=== PATIENT | male | born 1955 | race African-American/Black ===

== ENCOUNTER 2018-10-31 20:50 | Emergency (ER) | payer SELFPAY ==
[2018-10-31] MEDS ORDERED: HYDROCODONE/APAP 10/325 TAB ONE (23:04)
[2018-10-31] MEDS ORDERED: KETOROLAC 30 MG/ML INJ ONE (23:05)
--- NOTE | 2018-11-01 01:29 | ER ---
Nurse's Notes [facility] Name: Malcom Delgado Age: 63 yrs Sex: Male : 1955 Arrival Date: 10/31/2018 Time: 20:57 Bed 7 Private MD: Jerardo Shelby Diagnosis: Strain of other muscles and tendons at lower leg level-hamstring, tear Presentation: 10/31 21:13 Presenting complaint: Patient states: that 2 days ago he was playing with his dog and fc all of a sudden heard a pop. Then started to have pain to back of left thigh. Transition of care: patient was not received from another setting of care. Onset of symptoms was October 29, 2018. Risk Assessment: Do you want to hurt yourself or someone else? Patient reports no desire to harm self or others. Initial Sepsis Screen: Does the patient meet any 2 criteria? No. Patient's initial sepsis screen is negative. Does the patient have a suspected source of infection? No. Patient's initial sepsis screen is negative. Care prior to arrival: Medication(s) given: Tylenol, 650 mg, last at 1600. 21:13 Method Of Arrival: Ambulatory 21:13 Acuity: AKUA 3 Triage Assessment: 21:21 General: Appears uncomfortable, slender, Behavior is calm, cooperative, appropriate for age. Pain: Complains of pain in left hamstring Pain currently is 9 out of 10 on a pain scale. Quality of pain is described as aching, sharp, throbbing, Pain began 2-3 days ago. Is continuous, Aggravated by increased activity, repositioning, weight bearing. EENT: No deficits noted. Neuro: Level of Consciousness is awake, alert, obeys commands, Oriented to person, place, time, situation. Cardiovascular: No deficits noted. Respiratory: No deficits noted. GI: No deficits noted. : No deficits noted. Derm: Skin is pink, warm \T\ dry. Musculoskeletal: Circulation, motion, and sensation intact. Capillary refill < 3 seconds, Range of motion: limited in left hip Reports pain in left hamstring. Historical: - Allergies: 21:17 Coreg; fc - Home Meds: 21:17 amlodipine oral 1 tab twice a day [Active]; fc - PMHx: 21:17 Hypertension; fc - PSHx: 21:17 back surg; fc - Immunization history:: Last tetanus immunization: up to date Flu vaccine is not up to date. - Social history:: Smoking status: Patient uses tobacco products, denies chronic smoking, but will smoke occasionally, Patient/guardian denies using alcohol. - Ebola Screening: : Patient negative for fever greater than or equal to 101.5 degrees Fahrenheit, and additional compatible Ebola Virus Disease symptoms Patient denies exposure to infectious person Patient denies travel to an Ebola-affected area in the 21 days before illness onset. - Family history:: not pertinent. Screenin:33 Abuse screen: Denies threats or abuse. Nutritional screening: No deficits noted. tl2 Tuberculosis screening: No symptoms or risk factors identified. Fall Risk None identified. Assessment: 21:33 General: Appears in no apparent distress. uncomfortable, Behavior is calm, cooperative, tl2 appropriate for age. Pain: Complains of pain in left gluteal fold Pain does not radiate. Neuro: Level of Consciousness is awake, alert, obeys commands, Oriented to person, place, time, situation. Cardiovascular: Denies chest pain. Respiratory: Airway is patent Respiratory effort is even, unlabored, Respiratory pattern is regular, symmetrical. GI: No signs and/or symptoms were reported involving the gastrointestinal system. : No signs and/or symptoms were reported regarding the genitourinary system. Derm: Skin is pink, warm \T\ dry. Musculoskeletal: Circulation, motion, and sensation intact. Range of motion: intact in all extremities, Swelling absent unable to bear weight on left leg. 22:15 Reassessment: Patient appears in no apparent distress at this time. awaiting MD tl2 assessment. 11/01 00:56 Reassessment: Patient appears in no apparent distress at this time. Patient and/or tl2 family updated on plan of care and expected duration. Pain level reassessed. Patient is alert, oriented x 3, equal unlabored respirations, skin warm/dry/pink. Patient states feeling better. Patient states symptoms have improved. 01:38 Reassessment: Patient appears in no apparent distress at this time. Patient and/or tl2 family updated on plan of care and expected duration. Pain level reassessed. Patient is alert, oriented x 3, equal unlabored respirations, skin warm/dry/pink. Pt and family verbalized understanding of discharge instructions, need for follow up and prescription usage. Vital Signs: 10/31 21:17 BP 239 / 91 RA Sitting (auto/reg); Pulse 88; Resp 18; Temp 99.1(O); Pulse Ox 100% on fc R/A; Weight 81.65 kg (R); Height 5 ft. 9 in. (175.26 cm); Pain 9/10; 21:17 BP 208 / 97 LA Sitting (auto/reg); Pulse 86; fc 22:15 BP 208 / 97; Pulse 87; Resp 18; Pulse Ox 97% on R/A; tl2 23:02 BP 203 / 94; Pulse 83; Resp 18; Pulse Ox 98% on R/A; tl2 11/01 00:56 BP 207 / 90; Pulse 70; Resp 18; Pulse Ox 97% on R/A; Pain 4/10; tl2 01:38 BP 199 / 98; Pulse 63; Resp 18; Pulse Ox 98% on R/A; tl2 10/31 21:17 Body Mass Index 26.58 (81.65 kg, 175.26 cm) ED Course: 10/31 20:57 Patient arrived in ED. mr 20:58 Jerardo Shelby MD is Private Physician. mr 21:15 Triage completed. fc 21:18 Arm band placed on Patient placed in an exam room, on a stretcher. fc 21:33 Cecille Reyes, RN is Primary Nurse. tl2 21:33 Patient has correct armband on for positive identification. Placed in gown. Bed in low tl2 position. Call light in reach. Side rails up X 1. 22:08 Ambrocio Langley MD is Attending Physician. yohana 23:25 Patient moved to radiology via wheelchair. az 23:25 X-ray completed. Patient tolerated procedure well. az 23:25 Patient moved back from radiology. az 23:27 Femur Left XRAY In Process Unspecified. EDMS 23:27 Pelvis XRAY In Process Unspecified. EDMS 11/01 01:28 Jerardo Shelby MD is Referral Physician. yohana 01:28 Brett Buck MD is Referral Physician. yohana 01:38 No provider procedures requiring assistance completed. Patient did not have IV access tl2 during this emergency room visit. Administered Medications: 10/31 23:00 Drug: TORadol 60 mg Route: IM; Site: left gluteus; tl2 11/01 00:00 Follow up: Response: No adverse reaction; Pain is decreased tl2 10/31 23:00 Drug: [place] 10 mg-325 mg 1 tabs Route: PO; tl2 11/01 00:00 Follow up: Response: No adverse reaction; Pain is decreased tl2 Outcome: 01:28 Discharge ordered by MD. muller 01:38 Discharged to home via wheelchair, with crutches, with family. tl2 01:38 Condition: stable 01:38 Discharge instructions given to patient, Instructed on discharge instructions, follow up and referral plans. medication usage, Demonstrated understanding of instructions, follow-up care, medications, Prescriptions given X 2. 01:39 Patient left the ED. tl2 09:35 Instructed on attempted to follow up with pt about need for repeat outpatient CT of iw leg, pt did not answer Signatures: Dispatcher [employer] EDAmbrocio Redmond MD MD cha Rivera, Mary mr Clementina Galarza, PREM RN fc Sandi Mckinney RN RN iw Knox, Taylor, RN RN tl2 Poppy Duncan Corrections: (The following items were deleted from the chart) 10/31 21:20 21:13 Acuity: AKUA 4 fc fc
--- NOTE | 2018-11-01 01:29 | EDPHYS ---
Physician Documentation [facility] Name: Malcom Delgado Age: 63 yrs Sex: Male : 1955 Arrival Date: 10/31/2018 Time: 20:57 Bed 7 Private MD: Jerardo Shelby ED Physician Ambrocio Langley HPI: 10/31 22:48 This 63 yrs old Black Male presents to ER via Ambulatory with complaints of Leg Pain. yohana 22:48 The patient presents with decreased range of motion, pain, that is acute. The yohana complaints affect the left hamstring. Context: resulted from playing sports, running. Onset: The symptoms/episode began/occurred 2 day(s) ago. Modifying factors: The symptoms are alleviated by elevating leg, remaining still, the symptoms are aggravated by movement. Associated signs and symptoms: The patient has no apparent associated signs or symptoms. Treatment prior to arrival includes: no previous treatment. The patient has not experienced similar symptoms in the past. Historical: - Allergies: 21:17 Coreg; fc - Home Meds: 21:17 amlodipine oral 1 tab twice a day [Active]; fc - PMHx: 21:17 Hypertension; fc - PSHx: 21:17 back surg; fc - Immunization history:: Last tetanus immunization: up to date Flu vaccine is not up to date. - Social history:: Smoking status: Patient uses tobacco products, denies chronic smoking, but will smoke occasionally, Patient/guardian denies using alcohol. - Ebola Screening: : Patient negative for fever greater than or equal to 101.5 degrees Fahrenheit, and additional compatible Ebola Virus Disease symptoms Patient denies exposure to infectious person Patient denies travel to an Ebola-affected area in the 21 days before illness onset. - Family history:: not pertinent. ROS: 22:48 Constitutional: Negative for fever, chills, and weight loss, Eyes: Negative for injury, yohana pain, redness, and discharge, ENT: Negative for injury, pain, and discharge, Neck: Negative for injury, pain, and swelling, Cardiovascular: Negative for chest pain, palpitations, and edema, Respiratory: Negative for shortness of breath, cough, wheezing, and pleuritic chest pain, Abdomen/GI: Negative for abdominal pain, nausea, vomiting, diarrhea, and constipation, Back: Negative for injury and pain, : Negative for injury, bleeding, discharge, and swelling, Skin: Negative for injury, rash, and discoloration, Neuro: Negative for headache, weakness, numbness, tingling, and seizure, Psych: Negative for depression, anxiety, suicide ideation, homicidal ideation, and hallucinations, Allergy/Immunology: Negative for hives, rash, and allergies, Endocrine: Negative for neck swelling, polydipsia, polyuria, polyphagia, and marked weight changes, Hematologic/Lymphatic: Negative for swollen nodes, abnormal bleeding, and unusual bruising. 22:48 MS/extremity: Positive for decreased range of motion, pain, of the left hamstring. Exam: 22:48 Constitutional: This is a well developed, well nourished patient who is awake, alert, yohana and in no acute distress. Head/Face: Normocephalic, atraumatic. Eyes: Pupils equal round and reactive to light, extra-ocular motions intact. Lids and lashes normal. Conjunctiva and sclera are non-icteric and not injected. Cornea within normal limits. Periorbital areas with no swelling, redness, or edema. ENT: Nares patent. No nasal discharge, no septal abnormalities noted. Tympanic membranes are normal and external auditory canals are clear. Oropharynx with no redness, swelling, or masses, exudates, or evidence of obstruction, uvula midline. Mucous membranes moist. Neck: Trachea midline, no thyromegaly or masses palpated, and no cervical lymphadenopathy. Supple, full range of motion without nuchal rigidity, or vertebral point tenderness. No Meningismus. Chest/axilla: Normal chest wall appearance and motion. Nontender with no deformity. No lesions are appreciated. Cardiovascular: Regular rate and rhythm with a normal S1 and S2. No gallops, murmurs, or rubs. Normal PMI, no JVD. No pulse deficits. Respiratory: Lungs have equal breath sounds bilaterally, clear to auscultation and percussion. No rales, rhonchi or wheezes noted. No increased work of breathing, no retractions or nasal flaring. Abdomen/GI: Soft, non-tender, with normal bowel sounds. No distension or tympany. No guarding or rebound. No evidence of tenderness throughout. Back: No spinal tenderness. No costovertebral tenderness. Full range of motion. Male : Normal genitalia with no discharge or lesions. Skin: Warm, dry with normal turgor. Normal color with no rashes, no lesions, and no evidence of cellulitis. Neuro: Awake and alert, GCS 15, oriented to person, place, time, and situation. Cranial nerves II-XII grossly intact. Motor strength 5/5 in all extremities. Sensory grossly intact. Cerebellar exam normal. Normal gait. Psych: Awake, alert, with orientation to person, place and time. Behavior, mood, and affect are within normal limits. 22:48 Musculoskeletal/extremity: Extremities: noted in the left hamstring: decreased ROM, pain. Vital Signs: 21:17 BP 239 / 91 RA Sitting (auto/reg); Pulse 88; Resp 18; Temp 99.1(O); Pulse Ox 100% on fc R/A; Weight 81.65 kg (R); Height 5 ft. 9 in. (175.26 cm); Pain 9/10; 21:17 BP 208 / 97 LA Sitting (auto/reg); Pulse 86; fc 22:15 BP 208 / 97; Pulse 87; Resp 18; Pulse Ox 97% on R/A; tl2 23:02 BP 203 / 94; Pulse 83; Resp 18; Pulse Ox 98% on R/A; tl2 11/01 00:56 BP 207 / 90; Pulse 70; Resp 18; Pulse Ox 97% on R/A; Pain 4/10; tl2 01:38 BP 199 / 98; Pulse 63; Resp 18; Pulse Ox 98% on R/A; tl2 10/31 21:17 Body Mass Index 26.58 (81.65 kg, 175.26 cm) MDM: 10/31 22:08 Patient medically screened. [facility] 22:51 Data reviewed: vital signs, nurses notes, radiologic studies, plain films. [facility] 10/31 22:48 Order name: Femur Left XRAY [facility] 10/31 22:48 Order name: Pelvis XRAY [facility] 10/31 22:48 Order name: Crutch Training; Complete Time: 01:37 [facility] 10/31 22:48 Order name: Stevan Wrap; Complete Time: 01:37 [facility] Administered Medications: 23:00 Drug: TORadol 60 mg Route: IM; Site: left gluteus; tl2 11/01 00:00 Follow up: Response: No adverse reaction; Pain is decreased [facility] 10/31 23:00 Drug: [place] 10 mg-325 mg 1 tabs Route: PO; tl2 11/01 00:00 Follow up: Response: No adverse reaction; Pain is decreased tl2 Disposition: 11/01/18 01:28 Discharged to Home. Impression: Strain of other muscles and tendons at lower leg level - hamstring, tear. - Condition is Stable. - Discharge Instructions: Muscle Strain, Muscle Pain, Adult, Muscle Pain, Pediatric, Muscle Strain, [id number]. - Prescriptions for Tylenol- Codeine #3 300-30 mg Oral Tablet - take 2 tablet by ORAL route every 6 hours As needed; 30 tablet. Motrin IB 200 mg Oral Tablet - take 2 tablet by ORAL route every 6 hours As needed as needed with food; 26 tablet. - Medication Reconciliation Form, Thank You Letter, Antibiotic Education, Prescription Opioid Use form. - Follow up: Jerardo Shelby; When: 2 - 3 days; Reason: Recheck today's complaints, Continuance of care, Re-evaluation by your physician. Follow up: Dr. Brett Buck; When: 2 - 3 days; Reason: Recheck today's complaints, Re-evaluation by your physician. - Problem is new. - Symptoms have improved. Signatures: Dispatcher [employer] EDMS Ambrocio Langley MD MD cha Chretien, Felicia, RN RN Cecille Reyes RN RN tl2 Corrections: (The following items were deleted from the chart) 01:39 01:28 11/01/2018 01:28 Discharged to Home. Impression: Strain of other muscles and tl2 tendons at lower leg level - hamstring, tear. Condition is Stable. Discharge Instructions: Muscle Strain, Muscle Pain, Adult, Muscle Pain, Pediatric, Muscle Strain, [id number]. Prescriptions for Tylenol-Codeine #3 300-30 mg Oral Tablet - take 2 tablet by ORAL route every 6 hours As needed; 30 tablet, Motrin IB 200 mg Oral Tablet - take 2 tablet by ORAL route every 6 hours As needed as needed with food; 26 tablet. and Forms are Medication Reconciliation Form, Thank You Letter, Antibiotic Education, Prescription Opioid Use. Follow up: Jerardo Shelby; When: 2 - 3 days; Reason: Recheck today's complaints, Continuance of care, Re-evaluation by your physician. Follow up: Dr. Brett Buck; When: 2 - 3 days; Reason: Recheck today's complaints, Re-evaluation by your physician. Problem is new. Symptoms have improved. yohana
--- NOTE | 2018-11-01 09:32 | RAD REPORT ---
EXAM DESCRIPTION: RAD - Femur Left - 10/31/2018 11:28 pm CLINICAL HISTORY: Leg pain status post injury. COMPARISON: None. FINDINGS: No fracture or dislocation is seen. A and 36 mm well-circumscribed lucent lesion is presen t within the left femoral neck with a sclerotic border. It has enlarged when compared to a May 2017 exam in which it measured 30 mm. No fracture or dislocation is seen. IMPRESSION: 1. No fracture is seen. 2. A 36 mm well-circumscribed lucent lesion within the left femoral neck with a sclerotic border. It has a benign appearance. However, since it has enlarged since the prior exam it is recommended that t he patient have a CT scan for further evaluation. The examination was discussed with Dr. Hayes was in the emergency room at approximately 9:20 a.m. on November 01, 2018.
--- NOTE | 2018-11-01 09:48 | RAD REPORT ---
EXAM DESCRIPTION: RAD - Pelvis - 10/31/2018 11:27 pm CLINICAL HISTORY: Leg pain status post injury. COMPARISON: None. FINDINGS: No fracture or dislocation is seen. A and 36 mm well-circumscribed lucent lesion is presen t within the left femoral neck with a sclerotic border. It has enlarged when compared to a May 2017 exam in which it measured 30 mm. No fracture or dislocation is seen. IMPRESSION: 1. No fracture is seen. 2. A 36 mm well-circumscribed lucent lesion within the left femoral neck with a sclerotic border. It has a benign appearance. However, since it has enlarged since the prior exam it is recommended that t he patient have a CT scan for further evaluation. The examination was discussed with Dr. Hayes was in the emergency room at approximately 9:20 a.m. on November 01, 2018.
== END 2018-11-01 01:39 | disposition home or self-care (01) ==
LOC: ER 20:50
DX: S86.812A Strain of other muscle(s) and tendon(s) at lower leg level, left leg, initial encounter (principal); Y93.79 Activity, other specified sports and athletics; Y93.02 Activity, running; Y92.9 Unspecified place or not applicable; I10 Essential (primary) hypertension; F17.210 Nicotine dependence, cigarettes, uncomplicated
CPT/HCPCS: 72170; 96372; 99283

== ENCOUNTER 2019-09-30 18:41 | Emergency (ER) | payer SELFPAY ==
[2019-09-30 19:58] LABS: Basophils % 1.6 % (0-1.3); Hematocrit 38.1 % (39.6-49.0); Lymphocytes % 36.3 % (15.3-44.8); MPV 8.3 fL (7.6-11.3); RBC Red Blood Cell Count 4.24 M/uL (4.33-5.43)
[2019-09-30 20:08] LABS: Urine RBC <5 /HPF (NONE SEEN)
[2019-09-30 20:09] LABS: Urine Amorphous Sediment 2+ /HPF (NONE SEEN); Urine Bacteria >50 /HPF (NONE SEEN); Urine Culture Reflex Order REFLEXED
[2019-09-30] MEDS ORDERED: MORPHINE 4 MG/ML SYR ONE ×2 (20:09→20:56)
[2019-09-30] MEDS ORDERED: ONDANSETRON 4 MG/2 ML VIAL ONE (20:09)
[2019-09-30 20:19] LABS: Albumin 3.5 g/dL (3.4-5.0); Bilirubin Direct 0.1 mg/dL (0-0.2); Bilirubin Total 0.3 mg/dL (0.2-1.0); Potassium 3.1 mmol/L (3.5-5.1); Protein, Total 6.7 g/dL (6.4-8.2)
[2019-09-30] MEDS ORDERED: CEFTRIAXONE/SWI 1gm 1 GM/10 ML SYR ONE (20:24)
[2019-09-30] MEDS ORDERED: NA CHLORIDE 0.9% 1,000 ML ONE (20:24)
[2019-09-30 20:52] LABS: Blood Morphology Comment NOT SEEN (NOT SEEN); Platelet Estimate ADEQ
--- NOTE | 2019-09-30 21:01 | RAD REPORT ---
EXAM DESCRIPTION: CT - Abdomen Pelvis W Contrast - 09/30/2019 8:40 pm CLINICAL HISTORY: Abdominal pain COMPARISON: 2017 TECHNIQUE: Computed axial tomography of the abdomen pelvis was obtained. 100 cc Isovue-300 was admin istered intravenously. Oral contrast was not requested which limits evaluation of bowel. All CT scans are performed using dose optimization technique as appropriate and may include automated exposure control or mA/KV adjustment according to patient size. FINDINGS: The liver, spleen, pancreas, adrenal and right kidney appear unremarkable. Small left tennille l cyst. There is no evidence of diverticulitis. Prostate gland is mildly enlarged. Mild anterior subluxation L4 on L5 with spondylosis and spondylolysis L4 IMPRESSION: No acute abnormality is displayed.
--- NOTE | 2019-09-30 23:04 | ER ---
Nurse's Notes [facility] Name: Malcom Delgado Age: 64 yrs Sex: Male : 1955 Arrival Date: 09/30/2019 Time: 18:43 Bed 4 Private MD: Jerardo Shelby Diagnosis: Acute cystitis Presentation: 09/30 18:45 Presenting complaint: Patient states: blood in urine, abd pain, vomiting, began last la1 week. Transition of care: patient was not received from another setting of care. Onset of symptoms was September 30, 2019. Risk Assessment: Do you want to hurt yourself or someone else? Patient reports no desire to harm self or others. Initial Sepsis Screen: Does the patient meet any 2 criteria? No. Patient's initial sepsis screen is negative. Does the patient have a suspected source of infection? No. Patient's initial sepsis screen is negative. Care prior to arrival: None. 18:45 Method Of Arrival: Ambulatory la1 18:45 Acuity: AKUA 2 la1 Historical: - Allergies: 18:45 Coreg; la1 - PMHx: 18:45 Hypertension; la1 - Immunization history:: Adult Immunizations up to date. - Social history:: Smoking status: Patient uses tobacco products, denies chronic smoking, but will smoke occasionally. - Ebola Screening: : No symptoms or risks identified at this time. Screenin:16 Abuse screen: Denies threats or abuse. Denies injuries from another. Nutritional rr5 screening: No deficits noted. Tuberculosis screening: No symptoms or risk factors identified. Fall Risk IV access (20 points). Total Uribe Fall Scale indicates No Risk (0-24 pts). Assessment: 20:00 General: Appears in no apparent distress. uncomfortable, Behavior is calm, cooperative, rr5 appropriate for age. 20:00 Pain: Complains of pain in right upper quadrant Pain does not radiate. Pain currently rr5 is 9 out of 10 on a pain scale. Quality of pain is described as aching, Pain began gradually, Is intermittent. Neuro: Level of Consciousness is awake, alert, obeys commands, Oriented to person, place, time, situation, Appropriate for age. Cardiovascular: Capillary refill < 3 seconds Patient's skin is warm and dry. Respiratory: Airway is patent Respiratory effort is even, unlabored, Respiratory pattern is regular, symmetrical. GI: Abdomen is flat, Abdomen is tender to palpation in right upper quadrant Guarding noted Reports upper abdominal pain, nausea, vomiting. : Reports blood in urine. EENT: No signs and/or symptoms were reported regarding the EENT system. Derm: Skin is intact, Skin temperature is warm. Musculoskeletal: Circulation, motion, and sensation intact. Capillary refill < 3 seconds. 20:55 Reassessment: Patient appears in no apparent distress at this time. patient complaint rr5 of abdominal pain,ED provider aware with order made and carried out. Patient states symptoms have not improved. 22:20 Reassessment: Patient appears in no apparent distress at this time. Patient is alert, rr5 oriented x 3, equal unlabored respirations, skin warm/dry/pink. awaiting for result. Patient states symptoms have improved. Pain: Pain currently is 5 out of 10 on a pain scale. 23:15 Reassessment: Patient appears in no apparent distress at this time. Patient is alert, rr5 oriented x 3, equal unlabored respirations, skin warm/dry/pink. discharge instruction given and explained without complaints made, verbalized understanding. Patient states feeling better. Patient states symptoms have improved. Vital Signs: 18:45 BP 230 / 97; Pulse 93; Resp 16; Temp 98.1; Pulse Ox 98% on R/A; Weight 72.57 kg; Height la1 5 ft. 9 in. (175.26 cm); 20:10 BP 176 / 101; Pulse 95; Resp 17; Pulse Ox 99% ; Pain 9/10; rr5 21:00 BP 201 / 86; Pulse 90; Resp 19; Pulse Ox 98% on R/A; Pain 9/10; rr5 22:00 BP 185 / 85; Pulse 67; Resp 16; Pulse Ox 99% ; Pain 5/10; rr5 23:00 BP 171 / 80; Pulse 75; Resp 17; Temp 98; Pulse Ox 99% ; rr5 18:45 Body Mass Index 23.63 (72.57 kg, 175.26 cm) la1 ED Course: 18:43 Patient arrived in ED. mr 18:43 Jerardo Shelby MD is Private Physician. mr 18:45 Triage completed. la1 18:45 Arm band placed on left wrist. la1 18:58 [facility]. jr8 18:58 Charlie Lugo MD is Attending Physician. jr8 19:45 Inserted saline lock: 20 gauge in right forearm, using aseptic technique. Blood rr5 collected. 19:50 Patient has correct armband on for positive identification. Placed in gown. Bed in low rr5 position. Call light in reach. Pulse ox on. NIBP on. 20:03 Bud Brown, RN is Primary Nurse. rr5 20:40 CT completed. Patient tolerated procedure well. Patient moved back from CT. mw3 20:40 CT Abd/Pelvis - IV Contrast Only In Process Unspecified. EDMS 20:[address] back [address]. vm2 23:03 Jerardo Shelby MD is Referral Physician. jr8 23:20 No provider procedures requiring assistance completed. IV discontinued, intact, rr5 bleeding controlled, No redness/swelling at site. Pressure dressing applied. Administered Medications: 20:12 Drug: Zofran 4 mg Route: IVP; Site: right forearm; rr5 21:15 Follow up: Response: No adverse reaction rr5 20:14 Drug: morphine 4 mg {Note: rass 0.} Route: IVP; Site: right forearm; rr5 21:00 Follow up: Response: No adverse reaction; Pain is unchanged, physician notified; RASS: rr5 Alert and Calm (0) 20:27 Drug: Rocephin 1 grams Route: IV; Rate: calculated rate; Site: right forearm; rr5 20:27 Drug: NS 0.9% 1000 ml Route: IV; Rate: 1000 ml; Site: right forearm; rr5 22:00 Follow up: Response: No adverse reaction; IV Status: Completed infusion; IV Intake: rr5 1000ml 21:00 Drug: morphine 4 mg {Note: rass 0.} Route: IVP; Site: right forearm; rr5 22:00 Follow up: Response: No adverse reaction; Pain is decreased; RASS: Alert and Calm (0) rr5 Intake: 22:00 IV: 1000ml; Total: 1000ml. rr5 Outcome: 23:03 Discharge ordered by . jr8 23:20 Discharged to home ambulatory, with family. rr5 23:20 Condition: stable 23:20 Discharge instructions given to patient, Instructed on discharge instructions, follow up and referral plans. medication usage, Demonstrated understanding of instructions, follow-up care, medications, Prescriptions given X 1. 23:21 Patient left the ED. rr5 Signatures: Dispatcher [employer] ED Agnes Malloy mr LoreneManinder martins PA PA jr8 Jose Starr RN RN la1 Mala Cummings 2 Zehra Rankin 3 Bud Brown RN RN rr5 Corrections: (The following items were deleted from the chart) 18:46 18:45 Acuity: AKUA 3 la1 la1 20:15 19:11 morphine 4 mg IVP in right forearm rr5 rr5
--- NOTE | 2019-09-30 23:04 | EDPHYS ---
Physician Documentation [facility] Name: Malcom Delgado Age: 64 yrs Sex: Male : 1955 Arrival Date: 09/30/2019 Time: 18:43 Bed 4 Private MD: Jerardo Shelby ED Physician Charlie Lugo HPI: 09/30 19:43 This 64 yrs old Black Male presents to ER via Ambulatory with complaints of Urinary jr8 Problem, Vomiting. 19:43 The patient presents to the emergency department with nausea, vomiting, diarrhea. jr8 Onset: The symptoms/episode began/occurred gradually, 1 week(s) ago. Possible causes: unknown. The symptoms are aggravated by nothing. The symptoms are alleviated by nothing. Associated signs and symptoms: Pertinent positives: hematuria. Severity of symptoms: At their worst the symptoms were moderate in the emergency department the symptoms are unchanged. The patient has not experienced similar symptoms in the past. The patient has not recently seen a physician. Historical: - Allergies: 18:45 Coreg; la1 - PMHx: 18:45 Hypertension; la1 - Immunization history:: Adult Immunizations up to date. - Social history:: Smoking status: Patient uses tobacco products, denies chronic smoking, but will smoke occasionally. - Ebola Screening: : No symptoms or risks identified at this time. ROS: 19:43 Eyes: Negative for injury, pain, redness, and discharge, ENT: Negative for injury, jr8 pain, and discharge, Neck: Negative for injury, pain, and swelling, Cardiovascular: Negative for chest pain, palpitations, and edema, Respiratory: Negative for shortness of breath, cough, wheezing, and pleuritic chest pain, Back: Negative for injury and pain, MS/Extremity: Negative for injury and deformity, Skin: Negative for injury, rash, and discoloration, Neuro: Negative for headache, weakness, numbness, tingling, and seizure. 19:43 Abdomen/GI: Positive for abdominal pain, nausea, vomiting, and diarrhea, Negative for abdominal distension, anorexia, dysphagia, hematemesis, black/tarry stool, rectal pain, rectal bleeding, bowel incontinence, flatulence. 19:43 : Positive for hematuria. Exam: 19:43 Eyes: Pupils equal round and reactive to light, extra-ocular motions intact. Lids and jr8 lashes normal. Conjunctiva and sclera are non-icteric and not injected. Cornea within normal limits. Periorbital areas with no swelling, redness, or edema. ENT: Nares patent. No nasal discharge, no septal abnormalities noted. Tympanic membranes are normal and external auditory canals are clear. Oropharynx with no redness, swelling, or masses, exudates, or evidence of obstruction, uvula midline. Mucous membranes moist. Neck: Trachea midline, no thyromegaly or masses palpated, and no cervical lymphadenopathy. Supple, full range of motion without nuchal rigidity, or vertebral point tenderness. No Meningismus. Cardiovascular: Regular rate and rhythm with a normal S1 and S2. No gallops, murmurs, or rubs. Normal PMI, no JVD. No pulse deficits. Respiratory: Lungs have equal breath sounds bilaterally, clear to auscultation and percussion. No rales, rhonchi or wheezes noted. No increased work of breathing, no retractions or nasal flaring. Back: No spinal tenderness. No costovertebral tenderness. Full range of motion. Skin: Warm, dry with normal turgor. Normal color with no rashes, no lesions, and no evidence of cellulitis. MS/ Extremity: Pulses equal, no cyanosis. Neurovascular intact. Full, normal range of motion. Neuro: Awake and alert, GCS 15, oriented to person, place, time, and situation. Cranial nerves II-XII grossly intact. Motor strength 5/5 in all extremities. Sensory grossly intact. Cerebellar exam normal. Normal gait. 19:43 Abdomen/GI: Inspection: abdomen appears normal, Bowel sounds: active, all quadrants, Palpation: soft, in all quadrants, mild abdominal tenderness, in the right upper quadrant and right lower quadrant, mass, is not appreciated, rebound tenderness, is not appreciated, voluntary guarding, is not appreciated, involuntary guarding, is not appreciated, no appreciated organomegaly, Indicators: McBurney's point is not tender, Vega's sign is negative, Rovsing's sign is negative, Liver: tenderness, is not appreciated. Vital Signs: 18:45 BP 230 / 97; Pulse 93; Resp 16; Temp 98.1; Pulse Ox 98% on R/A; Weight 72.57 kg; Height la1 5 ft. 9 in. (175.26 cm); 20:10 BP 176 / 101; Pulse 95; Resp 17; Pulse Ox 99% ; Pain 9/10; rr5 21:00 BP 201 / 86; Pulse 90; Resp 19; Pulse Ox 98% on R/A; Pain 9/10; rr5 22:00 BP 185 / 85; Pulse 67; Resp 16; Pulse Ox 99% ; Pain 5/10; rr5 23:00 BP 171 / 80; Pulse 75; Resp 17; Temp 98; Pulse Ox 99% ; rr5 18:45 Body Mass Index 23.63 (72.57 kg, 175.26 cm) la1 MDM: 19:16 Patient medically screened. [facility] 23:02 Data reviewed: vital signs, nurses notes, lab test result(s), radiologic studies, CT jr8 scan. Data interpreted: Pulse oximetry: on room air is 99 %. Interpretation: normal. Counseling: I had a detailed discussion with the patient and/or guardian regarding: the historical points, exam findings, and any diagnostic results supporting the discharge/admit diagnosis, lab results, radiology results, the need for outpatient follow up, a family practitioner, to return to the emergency department if symptoms worsen or persist or if there are any questions or concerns that arise at home. Response to treatment: the patient's symptoms have markedly improved after treatment. 09/30 19:16 Order name: Basic Metabolic Panel; Complete Time: 20:20 [facility] 09/30 19:16 Order name: CBC with Diff; Complete Time: 20:56 [facility] 09/30 19:16 Order name: Creatinine for Radiology; Complete Time: 20:36 [facility] 09/30 19:16 Order name: Hepatic Function; Complete Time: 20:20 [facility] 09/30 19:16 Order name: Lipase; Complete Time: 20:20 [facility] 09/30 19:16 Order name: Urine Microscopic Only; Complete Time: 20:13 [facility] 09/30 20:12 Order name: Urine Culture [facility] 09/30 20:14 Order name: CT Abd/Pelvis - IV Contrast Only [facility] 09/30 20:22 Order name: Manual Differential; Complete Time: 20:56 [facility] 09/30 19:16 Order name: IV Saline Lock; Complete Time: 19:55 [facility] 09/30 19:16 Order name: Labs collected and sent; Complete Time: 19:55 [facility] 09/30 19:16 Order name: Urine Dipstick-Ancillary (obtain specimen); Complete Time: 19:55 jr8 Administered Medications: 20:12 Drug: Zofran 4 mg Route: IVP; Site: right forearm; rr5 21:15 Follow up: Response: No adverse reaction rr5 20:14 Drug: morphine 4 mg {Note: rass 0.} Route: IVP; Site: right forearm; rr5 21:00 Follow up: Response: No adverse reaction; Pain is unchanged, physician notified; RASS: rr5 Alert and Calm (0) 20:27 Drug: Rocephin 1 grams Route: IV; Rate: calculated rate; Site: right forearm; rr5 20:27 Drug: NS 0.9% 1000 ml Route: IV; Rate: 1000 ml; Site: right forearm; rr5 22:00 Follow up: Response: No adverse reaction; IV Status: Completed infusion; IV Intake: rr5 1000ml 21:00 Drug: morphine 4 mg {Note: rass 0.} Route: IVP; Site: right forearm; rr5 22:00 Follow up: Response: No adverse reaction; Pain is decreased; RASS: Alert and Calm (0) rr5 Disposition: 10/01 16:46 Co-signature as Attending Physician, Charlie Lugo MD. ma2 Disposition: 09/30/19 23:03 Discharged to Home. Impression: Acute cystitis. - Condition is Stable. - Discharge Instructions: Urinary Tract Infection, Adult. - Prescriptions for Levaquin 500 mg Oral Tablet - take 1 tablet by ORAL route once daily for 5 days; 5 tablet. - Medication Reconciliation Form, Thank You Letter, Antibiotic Education, Prescription Opioid Use form. - Follow up: Jerardo Shelby MD; When: 2 - 3 days; Reason: Recheck today's complaints, Continuance of care, Re-evaluation by your physician. - Problem is new. - Symptoms have improved. Signatures: Dispatcher [employer] EDMS Maninder Tian PA PA jr8 Jose Starr RN RN Charlie Villatoro MD MD ma2 Bud Brown RN RN rr5 Corrections: (The following items were deleted from the chart) 09/30 23:21 23:03 09/30/2019 23:03 Discharged to Home. Impression: Acute cystitis. Condition is rr5 Stable. Forms are Medication Reconciliation Form, Thank You Letter, Antibiotic Education, Prescription Opioid Use. Follow up: Jerardo Shelby; When: 2 - 3 days; Reason: Recheck today's complaints, Continuance of care, Re-evaluation by your physician. Problem is new. Symptoms have improved. jr8
[2019-10-01 01:46] VITALS: TEMP 98.1
[2019-10-01 01:50] VITALS: BP 185/85; O2SAT 99
== END 2019-09-30 23:21 | disposition home or self-care (01) ==
LOC: ER 18:41
DX: N30.00 Acute cystitis without hematuria (principal); I10 Essential (primary) hypertension; Z72.0 Tobacco use; Z88.8 Allergy status to other drugs, medicaments and biological substances
CPT/HCPCS: 36415; 74177; 80048; 80076; 81015; 83690; 85025; 87086; 87088; 96361; 96374; 96375; 99284; J0696; J2405; J7030; Q9967

== ENCOUNTER 2022-11-18 02:29 | Emergency (ER) | payer MEDICARE, OTHER ==
--- OUTSIDE RECORDS SUMMARY | 2022-11-18 02:35 | XMS REPORT | Continuity of Care Document ---
:1955 Author Organization [facility] t Address [address] [place] [address] Care Team Providers Name Role Phone Darshan Conroy DO Primary Care Physician Priya Sauceda Attending Clinician Unavailable Wilma Hackett Attending Clinician Unavailable Jeremie Bernardo Attending Clinician Unavailable DARSHAN CONROY Attending Clinician Unavailable BRISEIDA CHAVEZ Attending Clinician Unavailable LAB90 Attending Clinician Unavailable Neil Sofia MD Attending Clinician Jerri Anderson RN Attending Clinician Unavailable Arden Hopkins MD Attending Clinician Warren Grider MD Attending Clinician Lianne Mccarty MD Attending Clinician Juan BARTON, Nathan Jeong Attending Clinician [phone] Narcisa Farley Attending Clinician [phone] Sisi Aj MA Attending Clinician Unavailable Spencer AMARO, Lily Attending Clinician Unavailable ELY COFFMAN Attending Clinician Unavailable Kurt Adhiakri DO Attending Clinician [phone] Gwen BARTON, Tangela Attending Clinician Warren Hi MD Attending Clinician [phone] Darshan Conroy DO Attending Clinician Nitesh Espino Attending Clinician Unavailable AMBREEN_CASSY Attending Clinician Unavailable Omid Figueroa Attending Clinician Unavailable HARSH JUNE Attending Clinician Unavailable Charlie Lugo Attending Clinician Unavailable KNOW, DOES_NOT Admitting Clinician Unavailable Jeremie Bernardo Admitting Clinician Unavailable LIANNE MCCARTY Admitting Clinician Unavailable MD WARREN GRIDER Admitting Clinician Unavailable TANGELA CORTES Admitting Clinician Unavailable Physician, No Primary or Family Admitting Clinician UnavailPRIYA White Admitting Clinician Unavailable CASEY Admitting Clinician Unavailable HARSH JUNE Admitting Clinician Unavailable Payers Payer Name Policy Type Policy Number Effective Date Expiration Date Alec anderson [facility] 7 [id number] 2022 CLASSIC NO PREMIUM 00:00:00 R2T Problems Condition Condition Condition Status Onset Resolution Last Treating Co mments Source Name Details Category Date Date Treatment Clinician Date Other Other Disease Active 2021-11 Yenny specified specified 2-07 Seyb old anemias anemias 00:00: - 00 Externa l Status Status Disease Active 2021-11 Yenny post post 2-07 Seybold lumbar lumbar 00:00: - spinal spinal 00 Externa fusion fusion l Acute Acute Disease Active 2021-11 [facility] bilateral bilateral 1-08 st low back low back 00:00: Hospit a pain pain 00 l without without sciatica sciatica Acute Acute Disease Active Methodi midline midline 9-29 st low back low back 00:00: Hospit a pain with pain with 00 l right-side right-side d sciatica d sciatica 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, sthesis, 8-30 Seybol d lumbar lumbar 00:00: - region region 00 Externa l 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-30 Seyb 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 stenosis 00:00: - 00 Externa l Well adult Well adult Disease Active K kristal exam exam 8 Seybold 00:00: - 00 Externa l Gastroesop Gastroesop Disease Active K kristal hageal hageal 8 Seybold reflux reflux 00:00: - disease disease 00 Externa without without l esophagiti esophagiti s s Primary Primary Disease Active Yenny hypertensi hypertensi 8 Se ybold on on 00:00: - 00 Externa l Chronic Chronic Disease Active Yenny midline midline 8-02 Seybold low back low back 00:00: - pain with pain with 00 Exte rna right-side right-side l d sciatica d sciatica History of History of Disease Active Overview : Yenny iron iron 8 Formattin Seybold deficiency deficiency 00:00: g of this - anemia anemia 00 note Externa might be l different from the original. Has received iron infusion in the past, Hematolog y-Dr. 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 GI-Dr. Thomason, [place] py done 2 Allergies, Adverse Reactions, Alerts Allergy Allergy Status Severity Reaction(s) Onset Inactive Treating Comm ents Source Name Type Date Date Clinician No Known DA [facility] No Known DA [facility] No Known DA Active [facility] 3-07 Clear s 00:00: Cerna 00 [facility] No Known DA Active [facility] Allergie 01-25 Clear s 00:00: Cerna 00 [facility] Social History Social Habit Start Date Stop Date Quantity Comments Source History of tobacco Occasional Method ist use tobacco smoker Hospital Alcohol intake 2022-10-04 2022-10-04 [facility] 00:00:00 00:00:00 Hospital Cigarettes smoked 2022-08-19 2022-08-[address] current (pack per 00:00:00 00:00:00 [facility] day) - Reported Cigarette 2022-08-19 2022-08-19 [facility] pack-years 00:00:00 00:00:00 Hospital Tobacco use and 2022-08-19 2022-08-19 Smokeless tobacco [facility] exposure 00:00:00 00:00:00 non-user Hospital Education 2022-06-22 2022-06-22 16 Yenny Mendezybold - 00:00:00 00:00:00 External Sex [birth year] [facility] 00:00:00 00:00:00 [facility] Smoking Status Start Date Stop Date Source Occasional tobacco smoker 2022-08-19 00:00:00 [facility] Light tobacco smoker 2022-06-22 00:00:00 Yenny Cook - External Medications Ordered Filled Start Stop Current Ordering Indication Dosage Frequency Signature Comments Components Source Medication Medication Date Date Medication? Clinician (SIG) Name Name Tramadol 2021-11 Yes [id number] 50mg Q.[id number] Take 1 Yenny HCl 50 MG 2-07 106 [id number] tablet (50 Seybold oral Tablet 00:00: 3D mg total) - 00 by mouth Externa every 8 l hours as needed for pain Tizanidine 2021-11 Yes [id number] 2mg Q.5D Take 1 Yenny HCl 2-07 106 capsule (2 Seybold (Zanaflex) 00:00: mg total) - 2 MG oral 00 by mouth 2 Exte rna Capsule times l daily as needed for muscle spasms methocarbam 2021-11- No 500mg Q.[id number] Take 1 Methodi oL -13 11-[id number] (ROBAXIN) 00:00: 05:59 3D (500 mg [facility] 500 MG 00 :00 total) by l tablet mouth 3 (three) times a day for 7 days. traMADoL 2021-11- No [id number] 50mg Q6H Take 1 Metho di (ULTRAM) 50 - 11-21 tablet (50 s t mg tablet 00:00: 05:59 mg total) Ho spita 00 :00 by mouth l every 6 (six) hours as needed for moderate pain for up to 7 days .acute pain. Gabapentin 2021-11- No [id number] 600mg Q.07050130 Take 2 Yenny 300 MG oral 0-13 - [id number] capsules Seybold Capsule 00:00: 00:00 3D (600 mg - 00 :00 total) by Externa mouth 3 l times daily as needed Tramadol 2021-11 Yes [id number] 50mg Q.99270547 Take 1 Yenny HCl 50 MG 0-03 [id number] tablet (50 Seybold oral Tablet 00:00: 3D mg total) - 00 by mouth Externa every 8 l hours as needed for pain Tramadol 2021-11 Yes [id number] 50mg Q.[id number] Take 1 Yenny HCl 50 MG 0-03 [id number] tablet (50 Seybold oral Tablet 00:00: 3D mg total) - 00 by mouth Externa every 8 l hours as needed for pain Tramadol 2021-11- No [id number] 50mg Q.00091215 Take 1 Yenny HCl 50 MG 0-03 - [id number] tablet (50 Seybold oral Tablet 00:00: 00:00 3D mg total) - 00 :00 by mouth Externa every 8 l hours as needed for pain TiZANidine 2021- No 2mg Q.5D Take 1 Meth aaron (ZANAFLEX) 08-20 10-31 capsule (2 st 2 MG 00:00: 04:59 mg total) Hospita capsule 00 :00 by mouth 2 l (two) times a day as needed for muscle spasms for up to 30 days. Omeprazole Yes [id number] 40mg Take 1 Yenny 40 MG oral 9- capsule Seybol d Delayed 00:00: (40 mg - Release 00 total) by Externa Capsule mouth l daily hydrALAZINE 2021-0 Yes [id number] 100mg Take 1 Yenny HCl 100 MG 9-28 tablet Seybold oral Tablet 00:00: (100 mg - 00 total) by Externa mouth l daily Doxazosin 2021-0 Yes [id number] 2mg Take 1 Ke lsey Mesylate 2 9-28 tablet (2 Seyb old MG oral 00:00: mg total) - Tablet 00 by mouth Externa every l evening Amlodipine 2021-0 Yes [id number] 10mg Take 1 K elsey Besylate 10 9-28 tablet (10 Se ybold MG oral 00:00: mg total) - Tablet 00 by mouth Externa daily l Gabapentin 2021-0 Yes [id number] 300mg Q.[id number] Take 1 Yenny 300 MG oral 9-28 [id number] capsule Seybold Capsule 00:00: 3D (300 mg - 00 total) by Externa mouth 3 l times daily as needed Omeprazole 2021-0 Yes [id number] 40mg Take 1 Yenny 40 MG oral 9-28 capsule Seybol d Delayed 00:00: (40 mg - Release 00 total) by Externa Capsule mouth l daily Tizanidine 2021-0 Yes [id number] 2mg Q.5D Take 1 Yenny HCl 9-28 capsule (2 Seybold (Zanaflex) 00:00: mg total) - 2 MG oral 00 by mouth 2 Exte rna Capsule times l daily as needed for muscle spasms hydrALAZINE 2021-0 Yes [id number] 100mg Take 1 Yenny HCl 100 MG 9-28 tablet Seybold oral Tablet 00:00: (100 mg - 00 total) by Externa mouth l daily Doxazosin 2021-0 Yes [id number] 2mg Take 1 Ke lsey Mesylate 2 9-28 tablet (2 Seyb old MG oral 00:00: mg total) - Tablet 00 by mouth Externa every l evening Amlodipine 2021-0 Yes [id number] 10mg Take 1 K elsey Besylate 10 9-28 tablet (10 Se ybold MG oral 00:00: mg total) - Tablet 00 by mouth Externa daily l Gabapentin 2021-0 Yes [id number] 300mg Q.[id number] Take 1 Yenny 300 MG oral 9-28 [id number] capsule Seybold Capsule 00:00: 3D (300 mg - 00 total) by Externa mouth 3 l times daily as needed Omeprazole 2-0 Yes [id number] 40mg Take 1 Yenny 40 MG oral 9-28 capsule Seybol d Delayed 00:00: (40 mg - Release 00 total) by Externa Capsule mouth l daily Tizanidine 2021-0 Yes [id number] 2mg Q.5D Take 1 Yenny HCl 9-28 capsule (2 Seybold (Zanaflex) 00:00: mg total) - 2 MG oral 00 by mouth 2 Exte rna Capsule times l daily as needed for muscle spasms hydrALAZINE 2021-0 Yes [id number] 100mg Take 1 Yenny HCl 100 MG 9-28 tablet Seybold oral Tablet 00:00: (100 mg - 00 total) by Externa mouth l daily Doxazosin 2021-0 Yes [id number] 2mg Take 1 Ke lsey Mesylate 2 9-28 tablet (2 Seyb old MG oral 00:00: mg total) - Tablet 00 by mouth Externa every l evening Amlodipine 2021-0 Yes [id number] 10mg Take 1 K elsey Besylate 10 9-28 tablet (10 Se ybold MG oral 00:00: mg total) - Tablet 00 by mouth Externa daily l Gabapentin 2021-0 Yes [id number] 300mg Q.[id number] Take 1 Yenny 300 MG oral 9-28 [id number] capsule Seybold Capsule 00:00: 3D (300 mg - 00 total) by Externa mouth 3 l times daily as needed Omeprazole 2-0 Yes [id number] 40mg Take 1 Yenny 40 MG oral 9-28 capsule Seybol d Delayed 00:00: (40 mg - Release 00 total) by Externa Capsule mouth l daily Tizanidine 2021-0 Yes [id number] 2mg Q.5D Take 1 Yenny HCl 9-28 capsule (2 Seybold (Zanaflex) 00:00: mg total) - 2 MG oral 00 by mouth 2 Exte rna Capsule times l daily as needed for muscle spasms hydrALAZINE 2-0 Yes [id number] 100mg Take 1 Yenny HCl 100 MG 9-28 tablet Seybold oral Tablet 00:00: (100 mg - 00 total) by Externa mouth l daily Doxazosin 2022-0 Yes [id number] 2mg Take 1 Ke lsey Mesylate 2 08-18 tablet (2 Seyb old MG oral 00:00: mg total) - Tablet 00 by mouth Externa every l evening Amlodipine 2-0 Yes [id number] 10mg Take 1 K elsey Besylate 10 08-18 tablet (10 Se ybold MG oral 00:00: mg total) - Tablet 00 by mouth Externa daily l doxazosin 2021-0 Yes 2mg QD Take 1 Method i (CARDURA) 2 08-18 tablet (2 st MG tablet 00:00: mg total) Hos juliette 00 by mouth l daily. gabapentin 2021-0 Yes 300mg Q.[id number] Take 1 Methodi (NEURONTIN) 08-[id number] 300 mg 00:00: 3D (300 mg Hospita capsule 00 total) by l mouth 3 (three) times a day. hydrALAZINE 2021-0 Yes 100mg Q.[id number] Take 1 Method[facility] (APRESOLINE 08-[id number] ) 100 MG 00:00: 3D (100 mg Hospit a tablet 00 total) by l mouth 3 (three) times a day. amLODIPine 2021-0 Yes 10mg QD Take 1 Metho di (NORVASC) 08-18 tablet (10 st 10 mg 00:00: mg total) Hospita tablet 00 by mouth l daily. omeprazole 2021-0 Yes 40mg QD Take 1 Metho di (PriLOSEC) 08-[address] 40 MG 00:00: (40 mg Hospita capsule 00 total) by l mouth daily. Tizanidine 2021-0 2021- No [id number] 2mg Q.5D Take 1 Yenny HCl 08-18-07 capsule (2 Seybold (Zanaflex) 00:00: 00:00 mg total) - 2 MG oral 00 :00 by mouth 2 Exte rna Capsule times l daily as needed for muscle spasms TiZANidine 202-0 2022- No 2mg Q.5D Take 1 Meth aaron (ZANAFLEX) 08-1830 capsule (2 st 2 MG 00:00: 00:00 mg total) Hospita capsule 00 :00 by mouth 2 l (two) times a day as needed for muscle spasms. Tizanidine 2021- No [id number] 2mg Q.5D Take 1 Yenny HCl 07-20 capsule (2 Seybold (Zanaflex) 00:00: 00:00 mg total) - 2 MG oral 00 :00 by mouth 2 Exte rna Capsule times l daily as needed for muscle spasms Pantoprazol 2021- No [id number] 40mg Take 1 Yenny e Sodium 40 06-28 tablet (40 S eybold MG oral 00:00: 00:00 mg total) - Tablet 00 :00 by mouth Externa Delayed daily l Response Gabapentin 2021- No [id number] 100mg Q.[id number] Take 1 Yenny 100 MG oral 06-22 [id number] capsule Seybold Capsule 00:00: 00:00 3D (100 mg - 00 :00 total) by Externa mouth 3 l times daily as needed Doxazosin 2021- No 2mg Take 2 mg Ke lsey Mesylate 2 06-02 by mouth Seyb old MG oral 00:00: 00:00 every - Tablet 00 :00 evening Externa l Amlodipine 2021- No 10mg Take 10 mg Yenny Besylate 10 06-02 by mouth Sey bold MG oral 00:00: 00:00 daily - Tablet 00 :00 Externa l hydrALAZINE 2021- No 50mg Take 50 mg Yenny HCl 50 MG 06-02 by mouth 2 Sey bold oral Tablet 00:00: 00:00 times - 00 :00 daily Externa l Immunizations Ordered Immunization Filled Immunization Date Status Commen ts Source Name Name Influenza Virus 2022-08-18 Completed Yenny Mendez ybold Vaccine, 00:00:00 - External Quadrivalent, High Dose, Age 65 And Up Influenza Virus 2022-08-18 Completed Yenny Mendez ybold Vaccine, 00:00:00 - External Quadrivalent, High Dose, Age 65 And Up Influenza Virus 2022-08-18 Completed Yenny Se ybold Vaccine, 00:00:00 - External Quadrivalent, High Dose, Age 65 And Up Influenza Virus 2022-08-18 Completed Yenny Mendez ybold Vaccine, 00:00:00 - External Quadrivalent, High Dose, Age 65 And Up Influenza Virus 2007-12-20 Completed Yenny mooreold Vaccine, Unspecified 00:00:00 - Ex ternal Formulation Influenza Virus 2007-12-20 Completed Yenny Mendez ybold Vaccine, Unspecified 00:00:00 - Ex ternal Formulation Influenza Virus 2007-12-20 Completed Yenny Mendez ybold Vaccine, Unspecified 00:00:00 - Ex ternal Formulation Influenza Virus 2007-12-20 Completed Yenny Mendez ybold Vaccine, Unspecified 00:00:00 - Ex ternal Formulation Influenza Virus 2006-09-28 Completed Yenny Mendez ybold Vaccine, Unspecified 00:00:00 - Ex ternal Formulation Influenza Virus 2006-09-28 Completed Yenny Mendez ybold Vaccine, Unspecified 00:00:00 - Ex ternal Formulation Influenza Virus 2006-09-28 Completed Yenny Mendez ybold Vaccine, Unspecified 00:00:00 - Ex ternal Formulation Influenza Virus 2006-09-28 Completed Yenny Mendez ybold Vaccine, Unspecified 00:00:00 - Ex ternal Formulation Vital Signs Vital Name Observation Time Observation Value Comments Source Systolic blood 2022-10-27 16:56:00 138 mm[Hg] Yenny Mendezybold - pressure External Diastolic blood 2022-10-27 16:56:00 70 mm[Hg] Mimi luna Seybold - pressure External Heart rate 2022-10-27 16:56:00 96 /min Yenny Alec varinder - External Body temperature 2022-10-27 16:56:00 36.72 Nydia Shoshana ey ybadriana - External Respiratory rate 2022-10-27 16:56:00 20 /min Shoshana hebert Seybadriana - External Body weight 2022-10-27 16:56:00 74.118 kg Yenny Alec emileebolee ann - External BMI 2022-10-27 16:56:00 24.13 kg/m2 Yenny Alec varinder - External Oxygen saturation in 2022-10-27 16:56:00 99 /min Yenny Cook - Arterial blood by External Pulse oximetry Systolic blood 2022-08-30 12:55:00 140 mm[Hg] Yenny Tinajeroold - pressure External Diastolic blood 2022-08-30 12:55:00 60 mm[Hg] Alexse y Seybold - pressure External Heart rate 2022-08-30 12:55:00 87 /min Yenny S eybold - External Body temperature 2022-08-30 12:55:00 36.67 Nydia Shoshana ey Seybold - External Respiratory rate 2022-08-30 12:55:00 16 /min Shoshana ey Seybold - External Body height 2022-08-30 12:55:00 175.3 cm Yenny S eybold - External Body weight 2022-08-30 12:55:00 75.297 kg Yenny S eybold - External BMI 2022-08-30 12:55:00 24.51 kg/m2 Yenny S eybold - External Systolic blood 2022-08-23 19:05:00 172 mm[Hg] Yenny Seybold - pressure External Diastolic blood 2022-08-23 19:05:00 66 mm[Hg] Alexse y Seybold - pressure External Heart rate 2022-08-23 19:05:00 101 /min Yenny S eybold - External Body temperature 2022-08-23 19:05:00 36.56 Nydia Shoshana ey Seybold - External Respiratory rate 2022-08-23 19:05:00 16 /min Shoshana ey Seybold - External Body height 2022-08-23 19:05:00 175.3 cm Yenny S eybold - External Body weight 2022-08-23 19:05:00 77.111 kg Yenny S eybold - External BMI 2022-08-23 19:05:00 25.10 kg/m2 Yenny S eybold - External Systolic blood 2022-08-18 14:07:00 135 mm[Hg] Yenny Seybold - pressure External Diastolic blood 2022-08-18 14:07:00 80 mm[Hg] Kelse y Seybold - pressure External Heart rate 2022-08-18 13:49:00 94 /min Yenny S eybold - External Body temperature 2022-08-18 13:49:00 36.72 Nydia Shoshana ey Seybold - External Respiratory rate 2022-08-18 13:49:00 14 /min Shoshana ey Seybold - External Body height 2022-08-18 13:49:00 175.3 cm Yenny S eybold - External Body weight 2022-08-18 13:49:00 75.751 kg Yenny reeder - External BMI 2022-08-18 13:49:00 24.66 kg/m2 Yenny reeder - External Oxygen saturation in 2022-08-18 13:49:00 99 /min Yenny Cook - Arterial blood by External Pulse oximetry Systolic blood 2022-10-03 17:29:30 152 mm[Hg] [facility] pressure Diastolic blood 2022-10-03 17:29:30 71 mm[Hg] [facility] pressure Heart rate 2022-10-03 17:29:30 83 /min [facility] Body temperature 2022-10-03 17:29:30 36.28 Nydia [facility] Oxygen saturation in 2022-10-03 17:29:30 91 /min [facility] Arterial blood by Pulse oximetry Respiratory rate 2022-10-03 10:39:51 18 /min [facility] Body height 2022-09-22 18:10:00 175.3 cm [facility] Body weight 2022-09-22 18:10:00 74.844 kg [facility] BMI 2022-09-22 18:10:00 24.37 kg/m2 [facility] Procedures Procedure Date / Time Performing Clinician Source Performed XR LUMBAR SPINE 2 OR 3 VW 2022-10-18 19:54:00 Neil Sofia [facility] BASIC METABOLIC PANEL 2022-10-03 11:10:00 Lianne Mccarty [facility] ESTIMATED GFR 2022-10-03 11:10:00 Lianne Mccarty Ho spital HEMOGLOBIN 2022-10-03 10:04:00 Jewel Gupta [facility] CBC WITH PLATELET AND 2022-10-03 10:04:00 Lianne Mccarty [facility] DIFFERENTIAL CBC WITH PLATELET AND 2022-10-02 20:31:00 Lianne Mccarty [facility] DIFFERENTIAL BASIC METABOLIC PANEL 2022-10-02 20:31:00 Lianne Mccarty [facility] ESTIMATED GFR 2022-10-02 20:31:00 Lianne Mccarty Ho spital HEMOGLOBIN 2022-10-02 09:42:00 [facility] HEMATOCRIT 2022-10-01 23:53:00 GuptaJewel gilbert [facility] SURGICAL PATHOLOGY 2022-10-01 23:20:00 [facility] REQUEST OR [place] < 1 HOUR 2022-10-01 23:07:00 Neil Sofia spital INTRAOPERATIVE MONITORING 2022-10-01 22:41:51 GuptaJewel gilbert [facility] OR [place] < 1 HOUR 2022-10-01 22:02:00 Neil Sofia spital ARTERIAL LINE 2022-10-01 21:57:49 [facility] PA AN ELECTIVE 2022-10-01 20:42:00 [facility] ENDOTRACHEAL AIRWAY FUSION, SPINE, LUMBAR, 2022-10-01 20:31:00 [facility] XLIF HEMOGLOBIN A1C 2022-09-30 21:07:00 Amanda Flores spital ABO AND RH CONFIRMATION 2022-09-30 12:43:00 [facility] BY PROTOCOL ECG PRE/POST OP 2022-09-29 23:52:53 Demand, [facility] PROTHROMBIN TIME WITH INR 2022-09-29 22:39:00 Demand, [facility] PARTIAL THROMBOPLASTIN 2022-09-29 22:39:00 Demand, [facility] TIME (PTT) PREPARE RBC 2022-09-29 22:39:[facility] 2022-09-29 12:41:00 [facility] RT-PCR CBC WITH PLATELET AND 2022-09-29 10:53:00 [facility] DIFFERENTIAL BASIC METABOLIC PANEL 2022-09-29 10:53:00 [facility] ESTIMATED GFR 2022-09-29 10:53:00 Grider, [facility] ospital URINE CULTURE 2022-09-29 02:32:00 [facility] URINALYSIS SCREEN AND 2022-09-29 02:32:00 [facility] MICROSCOPY, WITH REFLEX TO CULTURE CBC WITH PLATELET AND 2022-09-29 01:30:00 [facility] DIFFERENTIAL COMPREHENSIVE METABOLIC 2022-09-29 01:30:00 [facility] PANEL ESTIMATED GFR 2022-09-29 01:30:00 [facility] ECG ED PRELIMINARY 2022-09-29 01:18:16 [place] INTERPRETATION IR INJECTION SI JOINT 2022-09-22 19:13:52 [facility] ARTHOGRAM W WO IMAGING BONE DENSITY PERIPHERAL 2022-09-06 16:25:48 [facility] BONE DENSITY 2022-09-06 16:24:33 [facility] spital XR HIP 2-3 VIEWS RIGHT 2022-09-06 15:50:00 [facility] QUANTAFLO 2022-08-30 13:15:19 Darshan Conroy ld - External BASIC METABOLIC PANEL 2022-08-20 08:30:00 [facility] Gueor CBC WITH PLATELET AND 2022-08-20 08:30:00 [facility] DIFFERENTIAL Guero ESTIMATED GFR 2022-08-20 08:30:00 Warren [facility] [place] Jack US RENAL 2022-08-20 03:21:21 Warren Hi [place] Jack IR EPIDURAL STEROID INJ 2022-08-19 22:10:00 Emile Medrano [facility] TRANSFORAM LUMBAR RIGHT (NERVE ROOT BLOCK) MRI THORACIC SPINE WO 2022-08-19 18:39:00 [facility] CONTRAST Guero COVID-19 QUALITATIVE 2022-08-19 17:56:00 [facility] RT-PCR Guero URINE CULTURE 2022-08-19 17:50:00 Warren Hi URINALYSIS SCREEN AND 2022-08-19 17:50:00 [facility] MICROSCOPY, WITH REFLEX Guero TO CULTURE XR SPINE SCOLIOSIS 2-3 2022-08-19 16:25:00 [facility] VIEWS Guero XR LUMBAR SPINE FLEXION 2022-08-19 16:24:00 [facility] AND EXTENSION ONLY 4+ VW Guero MRI LUMBAR SPINE WO 2022-08-19 10:30:00 [facility] CONTRAST CBC WITH PLATELET AND 2022-08-19 09:59:00 [facility] DIFFERENTIAL SEDIMENTATION RATE 2022-08-19 09:59:00 [facility] COMPREHENSIVE METABOLIC 2022-08-19 09:59:00 [facility] PANEL C-REACTIVE PROTEIN 2022-08-19 09:59:00 [facility] ESTIMATED GFR 2022-08-19 09:59:00 Onofre [facility] Jose M [id number] 2020-01-28 00:00:00 [facility] Plan of Care Planned Activity Planned Date Details Comments Source Future Scheduled 2022-11-18 65+ [facility]35 VACCINE (1 - PCV) [code = 65+ PNEUMOCOCCAL VACCINE (1 - PCV)] Future Scheduled 2022-11-18 Hepatitis C screening [facility] Test 02:32:35 (procedure) [code = [id number]] Future Scheduled 2022-11-18 COLONOSCOPY SCREENING [facility] Test 02:32:35 [code = COLONOSCOPY SCREENING] Future Scheduled 2022-11-18 SHINGLES VACCINES (1 Met [facility] Test 02:32:35 of 2) [code = SHINGLES VACCINES (1 of 2)] Future Scheduled 2022-11-18 COVID-19 VACCINE (3 - Me [facility] Test 02:32:35 Booster for Moderna series) [code = COVID-19 VACCINE (3 - Booster for Moderna series)] Future Scheduled 2022-11-18 INFLUENZA VACCINE Method [facility] Test 02:32:35 [code = INFLUENZA VACCINE] Encounters Start End Encounter Admission Attending Care Care Encounter Source Date/Time Date/Time Type Type Clinicians Facility Department ID 2022-09-09 [facility] [id number] Common 10:20:00 [facility] [id number] [facility] 2022-06-11 Outpatient Sauceda, STLML[facility] ST[facility] [id number] Common 11:33:01 Priya [facility] 2022-03-17 Outpatient Sauceda, STLMLC ST[facility]C [id number] Common 07:45:01 Priya [facility] 2022-03-15 Outpatient Sauceda, STLMLC STLMLC [id number] Common 09:54:02 Priya [facility] 2021-12-16 Outpatient Sauceda, STLMLC STLMLC [id number] Common 14:38:05 Priya [facility] 2021-12-16 Outpatient Sauceda, STLMLC STLMLC [id number] Common 14:02:13 Priya 61276 [facility] 2021-12-16 Outpatient Sauceda, STLMLC STLMLC [id number] Common 13:59:59 Priya 38970 [facility] 2021-12-16 Outpatient Sauceda, STLMLC STLMLC [id number] Common 13:27:45 Priya 13504 [facility] 2021-12-16 Outpatient Sauceda, STLMLC STLMLC [id number] Common 12:53:57 Priya 86954 [facility] 2021-12-16 Outpatient Sauceda, STLMLC STLMLC [id number] Common 12:41:44 Priya 99963 [facility] 2021-12-16 Outpatient STLMLC STLMLC [id number] Common 12:13:36 99755 [facility] 2021-12-16 Outpatient STLMLC STLMLC [id number] Common 12:13:05 64217 [facility] 2021-12-16 Outpatient Millender, STLMLC STLMLC [id number] Common 11:55:25 Wilma 12734 [facility] 2021-12-16 Outpatient Millender, STLMLC STLMLC [id number] Common 11:50:07 Wilma 34700 [facility] 2021-12-16 Outpatient Millender, STLMLC STLMLC [id number] Common 11:29:29 Wilma 93596 [facility] 2020-05-28 Inpatient HCAPM GER [id number] [facility] 14:24:00 93 [facility] 2020-01-25 Inpatient FERNANDA Beranrdo, HCAPM INTE.02 [id number] [facility] 23:15:00 Jeremie Callaway [facility] 2022-11-30 2022-11-30 Outpatient YENNY CONROY [id number] Yenny 08:00:00 08:00:00 DARSHAN Seybol d 2022-11-03 2022-11-03 Outpatient YENNY CONROY [id number] Yenny 00:00:00 00:00:00 DARSHAN Seybol d 2022-11-01 2022-11-01 Outpatient MOTAMEDYENNY [id number] Yenny 00:00:00 00:00:00 RASHNO Seybol d 2022-10-28 2022-10-28 Outpatient YENNY CONROY [id number] Yenny 00:00:00 00:00:00 DARSHAN Seybol d 2022-10-27 2022-10-27 Outpatient LAB90 YENNY RAMON [id number] Yenny 11:30:00 11:30:00 Seybol d 2022-10-27 2022-10-27 Outpatient YENNY CONROY [id number] Yenny 11:00:00 11:00:00 DARSHAN Seybol d 2022-10-27 2022-10-27 Outpatient YENNY RAMON [id number] Yenny 00:00:00 00:00:00 Seybol d 2022-10-18 2022-10-18 [facility] 1.2.840.1 [id number] Methodi 13:20:13 23:59:00 Encounter Neil 78352.1.[address] 3.430.2.7 Hospit a .3.644315 l .8 2022-10-18 2022-10-[address]1 [id number] Methodi 12:30:00 12:30:00 Visit Neil 81494.1.[address] 3.430.2.7 Hospit a .3.249111 l .8 2022-10-18 2022-10-18 Outpatient OMARI [facility] [id number] [place] 00:00:00 00:00:00 NEIL [address] 2022-10-18 2022-10-18 Outpatient OMARI [facility] [id number] [place] 00:00:00 00:00:00 NIEL [address] 2022-10-18 2022-10-18 Travel 1.2.840.1 1.2.769.793 9558 [id number] Methodi 00:00:00 00:00:[address] 3.430.2.7 0.2.7.3.698 Ho spita .3.425910 084.8 l .8 2022-10-05 2022-10-05 Patient Justin, 1.2.840.1 [id number] [id number] Methodi 00:00:00 00:00:00 Outreach Jerri 36920.1.[address] 3.430.2.7 Hospit a .3.107978 l .8 2022-10-04 2022-10-04 Outpatient YENNY RAMON [id number] Yenny 15:30:00 15:30:00 Christian cruz 2022-09-28 2022-10-03 [facility] 1.2.840.1 [id number] Methodi 16:15:00 14:53:00 Encounter Warren Grider 57685.1.[address] Naomy Mccarty 3.430.2.7 Ho spita .3.035370 l .8 2022-09-28 2022-10-03 Inpatient LIANNE MCCARTY [facility] [id number] [place] 00:00:00 00:00:[address] 2022-10-01 2022-10-01 Surgery Sofia, 1.2.840.1 [id number] 0172 Methodi 14:00:00 19:25:[address] 3.430.2.7 Hospit a .3.714478 l .8 2022-10-01 2022-10-01 Anesthesia Dhother, Nathan Jeong 1.2.8 40.1 [id number] Methodi 14:31:00 17:55:00 Event Narcisa Farley 70943.1.[address] 3.430.2.7 Hospit a .3.387026 l .8 2022-09-28 2022-09-28 Travel 1.2.840.1 1.2.911.685 7989 [id number] Methodi 00:00:00 00:00:[address] 3.430.2.7 0.2.7.3.698 Ho spita .3.949940 084.8 l .8 2022-09-22 2022-09-22 [facility] 1.2.840.1 [id number] 86758 Methodi 12:39:40 23:59:00 [facility] Neil 87399.1.[address] 3.430.2.7 Hospit a .3.464373 l .8 2022-09-22 2022-09-22 Outpatient [facility] [id number] [address] [place] [address] 00:00:00 00:00:00 NEIL [address] 2022-09-22 2022-09-22 Travel 1.2.840.1 1.2.326.213 9915 318251 Methodi 00:00:00 00:00:[address] 3.430.2.7 0.2.7.3.698 Ho spita .3.530924 084.8 l .8 2022-09-20 2022-09-20 Outpatient YENNY CONROY [id number] Rakesh Ramon 14:30:00 14:30:00 DARSHAN cruz 2022-09-09 2022-09-09 Orders Jean Marie, 1.2.840.1 [id number] 2099 [id number] Methodi 00:00:00 00:00:00 Only Sisi 09546.1.[address] 3.430.2.7 Hospit a .3.697503 l .8 2022-09-08 2022-09-08 Outpatient PREZAAlec, YENNY RAMON [id number] Yenny 00:00:00 00:00:00 DARSHAN cruz 2022-09-07 2022-09-07 Telephone Sirmodesta, 1.2.840.1 [id number] [id number] Methodi 00:00:00 00:00:[address] 3.430.2.7 Hospit a .3.567853 l .8 2022-09-07 2022-09-07 Orders Jean Marie, 1.2.840.1 [id number] 2099 [id number] Methodi 00:00:00 00:00:00 Only Sisi 47918.1.[address] 3.430.2.7 Hospit a .3.682776 l .8 2022-09-06 2022-09-06 [facility], 1.2.840.1 [id number] 40898 Methodi 10:35:28 23:59:00 Encounter Neil 42983.1.[address] 3.430.2.7 Hospit a .3.354432 l .8 2022-09-06 2022-09-06 [facility], 1.2.840.1 [id number] 57274 Methodi 10:05:00 10:34:00 Encounter Neil [address]2386.1.[address] 3.430.2.7 Hospit a .3.385207 l .8 2022-09-06 2022-09-06 [facility] 1.2.840.1 [id number] 24221 06804 Methodi 10:00:00 10:04:00 Encounter Neil 72882.1.[address] 3.430.2.7 Hospit a .3.619900 l .8 2022-09-06 2022-09-06 [facility], 1.2.840.1 [id number] 4944 Methodi 09:00:00 09:19:57 Visit Neil 27194.1.[address] 3.430.2.7 Hospit a .3.266280 l .8 2022-09-06 2022-09-06 Outpatient OMARI, [facility] [id number] [place] 00:00:00 00:00:00 NEIL [address] 2022-09-06 2022-09-06 Outpatient OMARI [facility] [id number] [place] 00:00:00 00:00:00 NEIL [address] 2022-09-06 2022-09-06 Outpatient OMARI [facility] [id number] [place] 00:00:00 00:00:00 NEIL [address] 2022-09-06 2022-09-06 Travel 1.2.840.1 1.2.237.825 9989 684647 Methodi 00:00:00 00:00:[address] 3.430.2.7 0.2.7.3.698 Ho spita .3.350425 084.8 l .8 2022-09-06 2022-09-06 Outpatient OMARI [facility] [id number] [place] 00:00:00 00:00:00 NEIL [address] 2022-09-03 2022-09-03 Outpatient YENNY COFFMAN [id number] Yenny 00:00:00 00:00:00 ELY Seybol d 2022-09-02 2022-09-02 Outpatient YENNY COFFMAN [id number] Yenny 13:00:00 13:00:00 ELY Seybol d 2022-08-30 2022-08-30 Outpatient YENNY CONROY [id number] Yenny 08:15:00 08:15:00 DARSHAN Seybol d 2022-08-23 2022-08-23 Outpatient YENNY CONROY [id number] Yenny 14:30:00 14:30:00 DARSHAN Seybol d 2022-08-23 2022-08-23 Outpatient YENNY CONROY [id number] Yenny 00:00:00 00:00:00 DARSHAN Seybol d 2022-08-19 2022-08-20 Emergency Kurt Adhikari 1.2.840 .1 [id number] Methodi 02:29:00 12:05:00 Marlobrannon Tangela [address] [place] 3.430.2.7 Hospita .3.277533 l .8 2022-08-19 2022-08-20 Outpatient KECIA [facility] 904 [id number] [address] [place] 00:00:00 00:00:[address] [facility] [address] 2022-08-19 2022-08-19 Travel 1.2.840.1 1.2.627.231 4218 097031 Methodi 00:00:00 00:00:[address] 3.430.2.7 0.2.7.3.698 Ho spita .3.546627 084.8 l .8 2022-08-18 2022-08-18 Outpatient YENNY CONROY [id number] Yenny 08:45:00 08:45:00 DARSHAN Seybol d 2022-08-17 2022-08-17 Outpatient YENNY CONROY [id number] Yenny 14:00:00 14:00:00 DARSHAN Seybol d 2022-08-06 2022-08-06 Outpatient YENNY CONROY [id number] Yenny 00:00:00 00:00:00 DARSHAN Seybol d 2022-08-06 2022-08-06 Outpatient YENNY CONROY [id number] Yenny 00:00:00 00:00:00 DARSHAN Seybol d 2022-08-05 2022-08-05 Outpatient PREYENNY NICHOLS [id number] Yenny 00:00:00 00:00:00 DARSHAN Seybol d 2022-07-20 2022-07-20 Office Nehemiah Conroy 1.2.840.114 [id number] Yenny 14:15:00 14:30:00 Visit Darshan Mckenzie 350.1.13.13 Se ybold 1.2.7.2.686 [id number] 0 2022-06-28 2022-06-28 Outpatient YENNY CONROY [id number] Yenny 00:00:00 00:00:00 DARSHAN Seybol d 2022-06-28 2022-06-28 Outpatient YENNY CONROY YENNY [id number] Yenny 00:00:00 00:00:00 DARSHAN Seybol d 2022-06-24 2022-06-24 Outpatient PREYENNY NICHOLS YENNY [id number] Yenny 00:00:00 00:00:00 DARSHAN Seybol d 2022-06-22 2022-06-22 Outpatient LAB90 YENNY YENNY [id number] 93 Yenny 09:45:00 09:45:00 Seybol d 2022-06-22 2022-06-22 Office Nehemiah Conroy 1.2.840.114 [id number] Yenny 08:45:00 09:30:00 Visit Darshan Mckenzie 350.1.13.13 riccardo 1.2.7.2.686 [id number] 0 2022-06-08 2022-06-08 Emergency EM Espino, HCAPM GER [id number] [facility] 14:37:00 15:40:00 Nitesh 80 [facility] 2022-06-08 2022-06-08 Emergency EM Espino, HCAPM HCAPM [id number] [facility] 14:37:00 15:40:00 Nitesh [id number] [facility] 2022-06-07 2022-06-07 Outpatient [facility] 748 [place] 12:17:00 12:17:00 HANA 0718 da [facility] Outre h Program 2021-02-24 2021-02-24 Outpatient Figueroa, HCAPM HCAPM [id number] [facility] 09:14:18 09:14:18 Omid 54 [facility] 2020-06-26 2020-06-26 Outpatient Figueroa, HCAPM RADI [id number] [facility] 10:00:00 10:00:00 Omid 91 [facility] 2020-06-12 2020-06-14 Inpatient SLADE, MHBL STEFANO 7502 MHBL 05:48:00 07:50:00 HARSH 2020-05-28 2020-05-28 Outpatient Alzahri, HCACL LABO [id number] [facility] 23:56:00 23:56:00 Mohammad 80 [facility] Results Test Description Test Time Test Comments Results Result Comments Source Surgical pathology request 2022-10-04 22:21:19 Test Item Value Reference Range Interpretation Comme nts Case number (test code = 7889143) [id number] Surgical pathology report (test code = See link below for PDF Lab R eport 9724) Result status (test code = 8623785) This is Final Report for [id number] 6442-22 Maria Isabel [facility] Pre[facility]Post [id number] 23:27:12 Test Item Value Reference Range Interpretation Comments Ventricular rate (test code = 253) Atrial rate (test code = 255) PA interval (test code = 266) QRSD interval (test code = 260) QT interval (test code = 264) QTC interval (test code = 265) P axis 1 (test code = 267) QRS axis 1 (test code = 268) T wave axis (test code = 270) EKG impression (test Normal sinus code = 273) rhythm-Inferior infarct , age undetermined-Abnormal ECG-No previous ECGs available-Electronica lly Signed By Alvaro BARTON, Jewel Cuenca ([id number]) on 09/30/2022 5:27:09 PM Maria Isabel LionARS-CoV-2 (COVID-19) RNA [Presence] in Respiratory specimen by SHAUN with probe [id number] 10:09:30 Test Item Value Reference Range Interpretation Comments SARS-CoV-2 (COVID-19) RNA Not detected [Presence] in Respiratory specimen by SHAUN with probe detection (test code = 80852-7) Whether patient is employed in a Unknown healthcare setting (test code = 74389-7) Whether the patient has symptoms Unknown related to condition of interest (test code = 16608-7) Whether the patient was Unknown hospitalized for condition of interest (test code = 16265-8) Whether the patient was admitted Unknown to intensive care unit (ICU) for condition of interest (test code = 58559-7) Whether patient resides in a Unknown congregate care setting (test code = 55545-8) status (test code = Unknown 99085-2) Date and time of symptom onset Unknown (test code = 56388-5) [facility]ECHARIAH BREWERForsy[facility] for Childrenvnfdjgh4100-93-37 03:53:00 Test Item Value Reference Range Interpretation Comments Urine culture (test SEE COMMENT Bacteriu maxine screen code = 9363859) negative. [facility] Interpretation - Not an [id number] 01:18:16 Test Item Value Reference Range Interpretation Comments ENRIQUE (test code = ENRIQUE) Arden Hopkins MD 10/26/2022 11:48 [facility] Preliminary Interpretation - Not an OrderPerformed by: Arden Hopkins MDAuthorized by: Arden Hopkins MD ECG reviewed by ED Physician in the absence of a puddler helper: yes Interpretation: Interpretation: abnormal Rate: ECG rate: 88 ECG rate assessment: normal Rhythm: Rhythm: sinus rhythm QRS: QRS axis: Normal QRS intervals: NormalST segments: ST segments: Normal Lab Interpretation Abnormal (test code = 60847-1) Anglican VeienrolDVEJCJOUX2667-93-15 13:16:33 Test Item Value Reference Range Interpretation Comments QuantaFlo left side See_Comment [Automa saige message] The (test code = system which [employer] nerated this 78220-1Y) result transmit saige reference range : 1.40 - 0.90 NA. The re ference range was not u sed to interpret this result as normal/abnormal . QuantaFlo right side See_Comment Present ation Factors: (test code = Hypertension, 99548-1Y) DiabetesExercis e Modality: At RestNormal - 1.40 - 1.00Borderline - 0.99 - 0.90Mild - 0.89 - 0.60Moderate - 0.59 - 0.30Severe - 0. 29 - 0.00 [Automated mess age] The system which [employer] nerated this result transmit saige reference range : 1.40 - 0.90 NA. The re ference range was not u sed to interpret this result as normal/abnormal . Yenny Bell EenfuuvcAHRM-EtC-3 (COVID-19) RNA [Presence] in Respiratory specimen by SHAUN with probe [id number] 16:47:29 Test Item Value Reference Range Interpretation Comments SARS-CoV-2 (COVID-19) RNA Not detected [Presence] in Respiratory specimen by SHAUN with probe detection (test code = 06043-6) Whether patient is employed in a Unknown healthcare setting (test code = 69898-2) Whether the patient has symptoms Unknown related to condition of interest (test code = 18538-3) Whether the patient was Unknown hospitalized for condition of interest (test code = 41519-4) Whether the patient was admitted Unknown to intensive care unit (ICU) for condition of interest (test code = 09121-9) Whether patient resides in a Unknown congregate care setting (test code = 77612-3) status (test code = Unknown 31687-2) Date and time of symptom onset Unknown (test code = 79855-8) [facility] L-SPINE W/O [id number] 15:29:00 [facility] 1955 Sex: M Name: JOSE ANTONIO BENITO [facility] : 1955 Age/S: 67 / M [address] [facility] Unit #: [id number] Loc: [place] [address] Phys: Nitesh Espino MD Acct: [id number] Dis Date: Status: REG ER PHONE #: [phone] Exam Date: 06/08/2022 1515 FAX #: Reason: right lower back pain and sciatica EXAMS: CPT: [id number] CT L-SPINE W/O CONTRAST 98189 CT lumbar spine without contrast 06/08/2022 3:28 PM CLINICAL INDICATION: Right lower back pain and sciatica COMPARISON: None available LOCATION: TECHNIQUE: Multiple axial noncontrast CT images of the lumbar spine were obtained in bone and soft tissue windows. Axiallyacquired data were reformatted in sagittal and coronal planes for further analysis. This examinationwas performed according to our departmental dose optimization program, which includes automated exposure control, adjustment of the mA and/or kV according to patient size, and/or use of iterative reconstruction technique. FINDINGS: There are chronic L4 pars interarticularis defects with grade 1 L4-5 spondylolisthesis. There is no vertebral body fracture and alignment is otherwise normal. There are nodestructive osseous lesions. 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 Superimposed degenerative changes result in high-grade bilateral foraminal stenosis at L4-5. The visualized soft tissue is without worrisome finding. IMPRESSION: No acute-appearing imaging abnormality. at 1529 Reported and signed by: Grover Orellana M.D. CC: Nitesh Espino MD Technologist:Yao Robins, RT(R)(CT) CTDI: DLP: Trnscb Date/Time: 06/08/2022 (1528) t.SDR.TS14 Orig Print D/T: S: 06/08/2022 (1848) PAGE 1 Signed Report- CT ABD PELVIS W/[id number] 10:31:00 [facility] : 1955 Sex: M Name: JOSE ANTONIO BENITO [facility] : 1955 Age/S: 66 / M [address] Unit #: [id number] Loc: [place] [address] Phys: Omid Figueroa MD Acct: [id number] Dis Date: Status: REG CLI PHONE #: [phone] Exam Date: 02/25/2021927 FAX #: Reason: primary malignant neoplasm of colon EXAMS: CPT: [id number] CT ABD PELVIS W/CONT 79814 EXAMINATION: - CT CHEST W/CONTRAST, - CT ABD PELVIS W/CONT. LOCATION: S17. HISTORY: primary malignant neoplasm of colon, HTN, colon resection. COMPARISON: CT chest 06/26/[address] abdomen 05/28/20. TECHNIQUE: CT imaging was performed of chest, abdomen and pelvis after intravenous administration of 100 cc of Isovue-300. Oral contrast material was also administered. One or more the following dose reduction techniques were used: Automated exposure control, adjustment of mA and/or kV according to patient size, and use of iterative reconstruction technique. FINDINGS: Partially v isualized thyroid gland appears unremarkable. No axillary, mediastinal or hilar bulky lymphadenopathy is identified. No mediastinal mass is noted. Ectatic ascending thoracic aorta at 4 cm. Atherosclerotic vascular calcifications. No pericardial or pleural effusion. The trachea and central bronchi arepatent. No pneumothorax. No focal consolidation. Bibasilar dependent changes. Mild emphysema. 5 mm nodule in superior segment of left lower lobe. Liver, gallbladder, spleen, pancreas, adrenals and right kidney appear unremarkable. 11 mm probable cyst in midpole of left kidney. No hydronephrosis. Underdistended urinary bladder. The bowel loops appear normal in course and caliber. No bowel obstruction.Postoperative changes of right hemicolectomy. Moderate stool throughout colon. No abdominal or pelvic bulky lymphadenopathy. No pneumoperitoneum or free fluid. Atherosclerotic vascular calcifications with at least moderate stenosis at origin of left renal artery. Visualized osseous structures demonstrate mild degenerative changes, including both sacroiliac joints. Bilateral L4 spondylolysis with mildanterolisthesis of L4 on L5. 2.4 cm lucent lesion in left femoral neck PAGE 1 Signed Report (CONTINUED) Name: JOSE ANTONIO BENITO [facility] [place] : 1955 Age/S: 66 / M [address] Unit #: [id number] Loc: [place] [address] Phys: Omid Figueroa MD Acct: [id number] Dis Date: Status: REG CLI PHONE #:[phone] Exam Date: 02/25/2021927 FAX #: Reason: primary malignant neoplasm of colon EXAMS: CPT: [id number] CT ABD PELVIS W/CONT 91485 (Continued) with peripheral sclerotic border, indeterminate, also noted previously. IMPRESSION: No pathologically enlarged lymph node within chest, abdomen nor pelvis. 5 mm nodule in superior segment of left lower lobe, stable from prior exam, can be reassessed at follow-up. Ectatic ascending thoracic aorta at 4 cm. At least moderate grade stenosis at the origin of left renal artery. Other findings as above. at 1031 Reported and signed by: Mirtha Del Real M.D. CC: Omid Figueroa MD Technologist:Ashwini Poole, RT(R); Nilam CTDI: DLP: Trnscb Date/Time: 02/25/2021 (1030) t.SDR.ANS4 Orig Print D/T: S: 02/25/2021 (103) PAGE 2 Signed Report- CT CHEST W/CONTRAST 2021-02-25 10:31:00 [facility] : 1955 Sex: M Name: JOSE ANTONIO BENITO [facility] : 1955 Age/S: 66 / M [address] [address] Unit #: [id number] Loc: [place] [address] Phys: Omid Figueroa MD Acct: [id number] Dis Date: Status: REG CLI PHONE #: [phone] Exam Date: 02/25/2021 0923 FAX #: Reason: primary malignant neoplasm of colon EXAMS: CPT: [id number] CHEST W/CONTRAST 82599 EXAMINATION: - CT CHEST W/CONTRAST, - CT ABD PELVIS W/CONT. LOCATION: S17.HISTORY: primary malignant neoplasm of colon, HTN, colon resection. COMPARISON: CT chest 06/26/[address] abdomen 05/28/20. TECHNIQUE: CT imaging was performed of chest, abdomen and pelvis after intravenous administration of 100 cc of Isovue-300. Oral contrast material was also administered. One or more the following dose reduction techniques were used: Automated exposure control, adjustment of mA and/orkV according to patient size, and use of iterative reconstruction technique. FINDINGS: Partially visualized thyroid gland appears unremarkable. No axillary, mediastinal or hilar bulky lymphadenopathy is identified. No mediastinal mass is noted. Ectatic ascending thoracic aorta at 4 cm. Atheroscleroticvascular calcifications. No pericardial or pleural effusion. The trachea and central bronchi are patent. No pneumothorax. No focal consolidation. Bibasilar dependent changes. Mild emphysema. 5 mm nodule in superior segment of left lower lobe. Liver, gallbladder, spleen, pancreas, adrenals and right kidney appear unremarkable. 11 mm probable cyst in midpole of left kidney. No hydronephrosis. Underdistended urinary bladder. The bowel loops appear normal in course and caliber. No bowel obstruction. Postoperative changes of right hemicolectomy. Moderate stool throughout colon. No abdominal or pelvic bulky lymphadenopathy. No pneumoperitoneum or free fluid. Atherosclerotic vascular calcifications with at least moderate stenosis at origin of left renal artery. Visualized osseous structures demonstrate mild degenerative changes, including both sacroiliac joints. Bilateral L4 spondylolysis with mild anterolisthesis of L4 on L5. 2.4 cm lucent lesion in left femoral neck PAGE 1 Signed Report (CONTINUED)Name: JOSE ANTONIO BENITO [facility] : 1955 Age/S: 66 / M [address] [address] Unit #: [id number]: [place] [address] Phys: Omid Figueroa MD Acct: [id number] Dis Date: Status: REG CLI PHONE #: [phone] Exam Date: 02/25/2021 0978 FAX #: Reason: primary malignant neoplasm of colon EXAMS: CPT: [id number] CT CHEST W/CONTRAST 69531 (Continued) with peripheral sclerotic border, indeterminate, al so noted previously. IMPRESSION: No pathologically enlarged lymph node within chest, abdomen nor pelvis. 5 mm nodule in superior segment of left lower lobe, stable from prior exam, can be reassessed at follow-up. Ectatic ascending thoracic aorta at 4 cm. At least moderate grade stenosis at the origin of left renal artery. Other findings as above. at 1031 Reported and signed by: Mirtha Del Real M.D. CC: Omid Figueroa MD Technologist:Ashwini Poole, RT(R); Nilam CTDI: DLP: Trnscb Date/Time: 02/25/2021 (1031) t.SDR.ANS4 Orig Print D/T: S: 02/25/2021 (1034) PAGE 2 Signed ReportBLOOD UREA NITROGEN 2021-02-25 08:11:00 Test Item Value Reference Range Interpretation Comments BLOOD UREA NITROGEN (test code = 10 MG/DL 7-18 N BUN) [id number] 08:11:00 Test Item Value Reference Range Interpretation Comments CREATININE (test code = CREAT) 1.3 MG/DL 0.8-1.3 N - CT CHEST W/O [id number] 11:54:00 Name: JOSE ANTONIO BENITO [facility] : 1955 Age/S: 65 / M [address] [address] Unit #: [id number]: [place] [address] Phys: Omid Figueroa MD,PhD Acct: [id number] Dis Date: Status: REG CLI PHONE #: [phone] Exam Date: 06/26/2020 0950 FAX #: Reason: MALIGNANT NEOPLASM OF CECUM EXAMS: CPT: [id number] CT CHEST W/O CONTRAST 93234 Location of dictation: B2 CT OF CHEST WITHOUT CONTRAST CLINICAL INDICATION: Malignancy of the cecum Comments: Volumetric data acquisition through the chest without intravenous contrast reconstructed as contiguous axial volume, and multiplanar coronal and sagittal reconstructions per department protocol. Reconstructions - coronal and sagittal planes Automated exposure reduction (Auto mA/Smart mA) was utilized in compliance with ACR [employer] with DLP of 344.7 mGy-cm. COMPARISON: None FINDINGS: Mediastinum and mikael: No abnormal mass or adenopathy. The thyroid appears normal. Vascular: Normal size heart with trace pericardial effusion. Ectatic aorta with borderline aneurysm of the ascending thoracic aorta. The ascending thoracic aorta measures 3.5 cm in diameter, the aorta at the arch measures 2.6 cm and the descending thoracic aorta 2.6 cm. Lungs and pleura: The lungs are slightly but symmetrically hyperexpanded with no consolidation, pneumothorax or effusion. Few linear infiltrates in the lung bases and 4.7 mm partly groundglass nodule in the right midlung field abutting the horizontal fissure likely an intrapulmonary lymph node. No other concerning nodules or masses. Upper abdomen: No acute findings. Bones and soft tissues including chest wall: Intact with no focal findings. IMPRESSION: 1. No acute findings in the chest and no concerning features tosuggest malignancy or metastatic disease. 2. Borderline aneurysm ascending thoracic aorta. 3. Suspect mild COPD with bibasilar scarring and small intrapulmonary lymph node on the right. PAGE 1 Signed Report (CONTINUED) Name: JOSE ANTONIO BENITO [facility] : 1955 Age/S: 65 / M [address] Unit #: [id number] Loc: [place] [address] Phys: Omid Figueroa MD,PhD Acct: [id number] Dis Date: Status: REG CLI PHONE #: [phone] Exam Date: 06/26/2020 0950 FAX #: Reason: MALIGNANT NEOPLASM OF CECUM EXAMS: CPT: [id number] CT CHEST W/O CONTRAST 34770 (Continued) at 1154 Reported and signed by: Debby Marrufo M.D. CC: Omid BARTON,PhD Henry Technologist:Margret Álvarez RT(R)(CT); Mor CTDI: DLP: Trnscb Date/Time: 06/26/2020 (1154) t.SDR.PXC Or ig Print D/T: S: 06/26/2020 (9228) PAGE 2 Signed ReportUA RFLX MICR CULT IF [id number] 17:17:00 Test Item Value Reference Range Interpretation Comments UA COLOR (test code = COLU) YELLOW discript YEL/STRAW UA APPEARANCE (test code = CLEAR discript CLEAR APPU) UA GLUCOSE DIPSTICK (test NEGATIVE mg/dL NEG code = DGLUU) UA BILIRUBIN DIPSTICK (test NEGATIVE mg/dL NEG code = BILU) UA KETONE DIPSTICK (test NEGATIVE mg/dL NEG code = KETU) UA SPECIFIC GRAVITY (test 1.010 SG 1.005-1.030 code = SGU) UA BLOOD DIPSTICK (test NEGATIVE mg/DL NEG code = PAMELLA) UA PH DIPSTICK (test code = 7.0 pH UNITS 5.0-7.0 TRUDI) UA PROTEIN DIPSTICK (test NEGATIVE mg/dL NEG code = PROU) UA UROBILINIOGEN DIPSTICK 0.2 mg/dL <2.0 (test code = URO) UA NITRITE DIPSTICK (test NEGATIVE SCREEN NEG code = KENA) UA LEUKOCYTE ESTERASE NEGATIVE Leuk/mcL NEGATIVE DIPSTICK (test code = LEUU) UA CULTURE NEEDED? (test Criteria Culture CHK code = UACULT) SOURCE OF URINE: CLEAN CATCHIndication for culture: Dysuria/FrequencyUA RFLX MICR CULT IF [id number] 17:17:00 Test Item Value Reference Range Interpretation Comments UA COLOR (test code = COLU) YELLOW discript YEL/STRAW UA APPEARANCE (test code = CLEAR discript CLEAR APPU) UA GLUCOSE DIPSTICK (test NEGATIVE mg/dL NEG code = DGLUU) UA BILIRUBIN DIPSTICK (test NEGATIVE mg/dL NEG code = BILU) UA KETONE DIPSTICK (test NEGATIVE mg/dL NEG code = KETU) UA SPECIFIC GRAVITY (test 1.010 SG 1.005-1.030 code = SGU) UA BLOOD DIPSTICK (test NEGATIVE mg/DL NEG code = PAMELLA) UA PH DIPSTICK (test code = 7.0 pH UNITS 5.0-7.0 TRUDI) UA PROTEIN DIPSTICK (test NEGATIVE mg/dL NEG code = PROU) UA UROBILINIOGEN DIPSTICK 0.2 mg/dL <2.0 (test code = URO) UA NITRITE DIPSTICK (test NEGATIVE SCREEN NEG code = KENA) UA LEUKOCYTE ESTERASE NEGATIVE Leuk/mcL NEGATIVE DIPSTICK (test code = LEUU) SOURCE OF URINE: CLEAN CATCHIndication for culture: Dysuria/Frequency- CT ABD PELVIS [id number] 16:33:00 Name: BENITOJOSE ANTONIO [facility] : 1955 Age/S: 65 / M [id number] Unit #: [id number]: [place] [address] Phys: Charlie Lugo MD Acct: [id number] Dis Date: Status: REG ER PHONE #: [phone] Exam Date: 05/28/2020 1610 FAX #: Reason: right sided abd pain, s/p colonoscope EXAMS: CPT: [id number] CT ABD PELVIS W/CONT 97122 Site ID: [id number] CLINICAL HISTORY: Right-sided abdominal pain, post colonoscopy TECHNIQUE: Axial images of the abdomen and pelvis were obtained from diaphragmto the pubic symphysis with intravenous contrast. CT dose lowering technique utilized, with adjustment of MA/kV according to patient size and automated exposure control. DISCUSSION: The lung bases areclear. The heart size is normal. The liver is normal in size and contour, without focal abnormality.The gallbladder is unremarkable. No biliary ductal dilatation. The spleen, pancreas and adrenal glands are unremarkable. Both kidneys are normal in size. Small 1.5 cm left renal cyst requires no follow-up. No hydronephrosis or enhancing renal mass. Vascular structures are normal in caliber, with mild-moderate eccentric atherosclerotic plaque formation. No pneumoperitoneum or hollow viscus perforationdemonstrated. Focal antimesenteric wall thickening and adjacent inflammation are present at the cecum. Otherwise the small and large bowel loops and appendix appear normal. Prostate gland and urinary bladder appear normal. Small fatty left inguinal hernia is present. Prominent L4-L5 and moderate L5-S1 spondylosis are present, with bilateral L4 spondylolysis and advanced central canal compromise at this level. IMPRESSION: No pneumoperitoneum or hollow viscus perforation demonstrated. Focal antimesenteric wall thickening and adjacent inflammation are present at the cecum. PAGE 1 Signed Report (CONT INUED) Name: JOSE ANTONIO BENITO [facility] : 1955 Age/S: 65 / M [address] Unit #: [id number] Loc: [place] [address] Phys: Charlie Lugo MD Acct: [id number] Dis Date: Status: REG ER PHONE #: [phone] Exam Date: 05/28/2020 1610 FAX #: Reason: right sided abd pain, s/p colonoscope EXAMS: CPT: [id number] CT ABD PELVIS W/CONT 19812 (Continued) at 1633 Reported and signed by: Giovanni Sauceda M.D. CC: Charlie Lugo MD Technologist:Vanessa Thompson, RT(R)(CT) CTDI: DLP: Trnscb Date/Time: 05/28/2020 (1633) t.[email or web address] OrigPrint D/T: S: 05/28/2020 (1636) PAGE 2 Signed ReportBASIC METABOLIC [id number] 15:18:00 Test Item Value Reference Range Interpretation Comments SODIUM (test code = NA) 140 mmol/L 134-147 N POTASSIUM (test code = 3.6 mmol/L 3.4-5.0 N K) CHLORIDE (test code = 109 mmol/L 100-108 H CL) CARBON DIOXIDE (test 28 mmol/L 21-32 N code = CO2) ANION GAP (test code = 3.0 GAP calc 4.0-15.0 L GAP) GLUCOSE (test code = 102 MG/DL 70-110 N GLU) BLOOD UREA NITROGEN 10 MG/DL 7-18 N (test code = BUN) GLOMERULAR FILTRATION >=60 max estimate >60 RATE (test code = GFR) estGFR CREATININE (test code = 1.5 MG/DL 0.8-1.3 H CREAT) CALCIUM (test code = CA) 8.8 MG/DL 8.5-10.1 N [id number] 15:18:00 Test Item Value Reference Range Interpretation Comments LIPASE (test code = LIP) 141 Unit/L 114-286 N BASIC METABOLIC [id number] 15:13:00 Test Item Value Reference Range Interpretation Comments SODIUM (test code = NA) 140 mmol/L 134-147 N POTASSIUM (test code = K) 3.6 mmol/L 3.4-5.0 N CHLORIDE (test code = CL) 109 mmol/L 100-108 H CARBON DIOXIDE (test code = CO2) 28 mmol/L 21-32 N ANION GAP (test code = GAP) 3.0 GAP calc 4.0-15.0 L GLUCOSE (test code = GLU) 102 MG/DL 70-110 N BLOOD UREA NITROGEN (test code = 10 MG/DL 7-18 N BUN) GLOMERULAR FILTRATION RATE (test estGFR >60 code = GFR) CREATININE (test code = CREAT) MG/DL 0.8-1.3 CALCIUM (test code = CA) 8.8 MG/DL 8.5-10.1 N [id number] 15:13:00 Test Item Value Reference Range Interpretation Comments LIPASE (test code = LIP) Unit/L 114-286 CBC W/O [id number] 15:05:00 Test Item Value Reference Range Interpretation Comments WHITE BLOOD CELL (test code = WBC) 11.6 K/mm3 3.5-11.0 H RED BLOOD CELL (test code = RBC) 4.00 M/mm3 4.70-6.10 L HEMOGLOBIN (test code = HGB) 9.9 G/DL 12.3-15.9 L HEMATOCRIT (test code = HCT) 33.5 % 35.8-46.7 L MEAN CELL VOLUME (test code = MCV) 83.8 Fl 86.3-98.9 L MEAN CELL HGB (test code = MCH) 24.8 pg 28.9-34.4 L MEAN CELL HGB CONCETRATION (test 29.6 G/DL 32.1-34.5 L code = MCHC) RED CELL DISTRIBUTION WIDTH (test 15.9 SD 11.5-14.5 H code = RDW) PLATELET COUNT (test code = PLT) 424 K/mm3 150-450 N MEAN PLATELET VOLUME (test code = 9.20 fL 7.0-9.6 N MPV) [id number] 15:57:00 RUN DATE: 01/30/20 [facility] PAGE 1 RUN TIME: 1558 Specimen Inquiry RUN USER: INTERFACE --- ---------PATIENT: JOSE ANTONIO BENITO LOC: FERN Loo #: [id number] AGE/SX: 64/M ROOM: [facility] RE01/25/20REG DR: Jeremie Bernardo MD : 55 BED: 1 DIS: 01/29/20 STATUS: DIS IN TLOC: SPEC #: [id number] RECD: 01/28/20 STATUS: MATTEO REQ #: [id number] LUPE: 01/28/20- SUBM DR: Jeremie Bernardo MD ENTERED: 01/28/20 SP TYPE: SURG OTHR DR: DOES_NOT KNOW Self Referred Shane Pearson MD, Nizam Mohammad MDORDERED: SURG PATH LVL 4/2, PATH STAIN GROU/2 COPIES TO: DOES_NOT KNOW Self Referred Shane Pearson MD [address] [place] [address] [place] [address] [address] [email or web address] Linn Thomason MD [address] [place] [address] HISTOLOGY: TISSUE ID BLK PCS CHRISS LEV PROCEDURE DISPOSITION ____ ___ ___ ___ GASTRIC ANTRUM A 1 3 GASTRIC ANTRUM B 1 3 PROCEDURES: SURG PATH LVL 4 (01/28/20-1208) PATH STAIN GROU (01/29/20-1039) TISSUES: A. GASTRIC ANTRUM - ANTRUM BIOPSY B. GASTRIC ANTRUM - BODY AND FUNDUS BX CONTINUED ON NEXT PAGE ----- -------RUN DATE: 01/30/20 [facility] - LAB PAGE 2 RUN TIME: 1558 Specimen Inquiry RUN USER: INTERFACE -------- ----SPEC #: [id number] PATIENT: JOSE ANTONIO BENITO #[id number] (Continued) CLINICAL HISTORY GI BLEEDING CPT CODES CPT CODE(S): 81617X0 , 50475I7 , , , , , FINAL DIAGNOSIS A. Stomach, antrum, biopsy: CHRONIC ACTIVE GASTRITIS NO HELICOBACTER IDENTIFIED NO EVIDENCE OF INTESTINAL METAPLASIA, DYSPLASIA OR MALIGNANCY B. Stomach, body and fundus, biopsy: CHRONIC ACTIVE GASTRITIS NO HELICOBACTER IDENTIFIED NO EVIDENCE OF INTESTINAL METAPLASIA, DYSPLASIA OR MALIGNANCY GROSS DESCRIPTION A. Antrum biopsy. Received in formalin are two martinez tissue fragments, 0.2 and 0.6 cm, all as A. B. Body and fundus biopsy. Received in formalin are two martinez tissue fragments, 0.2 and 0.3 cm, all as B. ba/nr Grossing performed at [facility] Pathology, [address] [place] [address], [address], [place] [address]. Story Teller: Faisal Coronel M.D. MICROSCOPIC DESCRIPTION A. Antrum biopsy. Fragments of antral-type gastric mucosa with expansion of the lamina propria with lymphoplasmacytic and neutrophilic infiltrate. No Helicobacter organisms or intestinal metaplasia identified. Because of the inflammation, a Diff-Quik stain was ordered. No Helicobacter organisms identified on Diff-Quik stain. No evidence of dysplasia or malignancy. B. Body and fundus biopsy. Fragments of oxyntic-type gastric mucosa with mild expansion of the lamina propria with a lymphoplasmacytic infiltrate. Focal active inflammation is identified. No intestinal metaplasia or Helicobacter organisms are identified. Because of the inflammation, a Diff-Quik stain was ordered. No Helicobacter organisms identified on Diff-Quik stain. No evidence of dysplasia or malignancy. /lsia CONTINUED ON NEXT PAGE RUN DATE: 01/30/20 [facility] PAGE 3 RUN TIME: 1558 Specimen Inquiry RUN USER: INTERFACE SPEC #: [id number] PATIENT: JIGNAJOSE ANTONIO #[id number] (Continued) Signed SIGNATURE ON FILE Edna Boland 01/30/20 1557 END OF REPORT HGB [id number] 05:38:00 Test Item Value Reference Range Interpretation Comments HEMOGLOBIN (test code = HGB) 10.1 G/DL 12.3-15.9 L HEMATOCRIT (test code = HCT) 32.6 % 35.8-46.7 L NT PRO-BRAIN NATRIURETIC [id number] 13:32:00 Test Item Value Reference Range Interpretation Comments NT PRO-BRAIN NATRIURETIC PEPTI 581 PG/ML 0-100 H (test code = PROBNP) Completed by Nursing: [id number] 13:32:00 Test Item Value Reference Range Interpretation Comments TROPONIN-I (test 0.047 NG/ML 0.000-0.045 HH Negative: < /= 0.045 code = TROPI) Positive: >/= 0.046 Correlation wit h serial results, other cardiac markers, and cl inical findings is nec essary to determine the c linical significance of this result. Quantit ative results using d ifferent methodologies s hould not be compared to one another as nume rical results may guilherme yby method. Completed by Nursing: NOCOMPREHENSIVE METABOLIC [id number] 13:25:00 Test Item Value Reference Range Interpretation Comments SODIUM (test code = NA) 141 mmol/L 134-147 N POTASSIUM (test code = 3.3 mmol/L 3.4-5.0 L K) CHLORIDE (test code = 110 mmol/L 100-108 H CL) CARBON DIOXIDE (test 26 mmol/L 21-32 N code = CO2) ANION GAP (test code = 5.0 GAP calc 4.0-15.0 N GAP) GLUCOSE (test code = 107 MG/DL 70-110 N GLU) BLOOD UREA NITROGEN 8 MG/DL 7-18 N (test code = BUN) GLOMERULAR FILTRATION >=60 max estimate >60 RATE (test code = GFR) estGFR CREATININE (test code = 1.2 MG/DL 0.8-1.3 N CREAT) TOTAL PROTEIN (test code 6.8 G/DL 6.4-8.2 N = PROT) ALBUMIN (test code = 3.5 G/DL 3.4-5.0 N ALB) GLOBULIN (test code = 3.3 GM/dL GLOB) ALBUMIN/GLOBULIN RATIO 1.1 RATIO 1.2-2.2 L (test code = A/G) CALCIUM (test code = CA) 8.7 MG/DL 8.5-10.1 N BILIRUBIN TOTAL (test 0.70 MG/DL 0.2-1.2 N code = BILT) SGOT/AST (test code = 16 Unit/L 15-37 N AST) SGPT/ALT (test code = 18 Unit/L 12-78 N ALT) ALKALINE PHOSPHATASE 71 Unit/L 50-136 N TOTAL (test code = ALKP) LIPID PROFILE (CORONARY RISK)[id number] 13:25:00 Test Item Value Reference Range Interpretation Comments TRIGLYCERIDES (test code = TRIG) 91 MG/DL 0-150 N CHOLESTEROL (test code = CHOL) 201 MG/DL 133-200 H CHOLESTEROL/HDL RATIO (test code = 4.47 RATIO >0 CHOLHDL) HDL CHOLESTEROL (test code = HDL) 45 MG/DL 40-59 N NON-HDL CHOLESTEROL (test code = 156 mg/dL <130 H NHDL) LIPOPROTEIN LDL (test code = LDL) 147 MG/DL 0-129 H LDL/HDL (test code = LDL/HDL) 3.26 Ratio 1.48-3.22 Avg H THYROID STIMULATING [id number] 13:25:00 Test Item Value Reference Range Interpretation Comments THYROID STIMULATING HORMONE 0.160 mcIU/ML 0.340-4.820 L (test code = TSH) DRUGS OF ABUSE SCREEN [id number] 13:24:00 Test Item Value Reference Range Interpretation Comments URN COCAINE (test code = NEGATIVE SCcutoff <300 NG/ML COCAURN) URN CANNABINOIDS (test code NEGATIVE SCcutoff <50 NG/ML = CANNABURN) URN AMPHETAMINE (test code NEGATIVE SCcutoff <1000 NG/ML = AMPHETURN) URN BARBITURATE (test code NEGATIVE SCcutoff <200 NG/ML = BARBITURN) URN BENZODIAZEPINE (test NEGATIVE SCcutoff <200 NG/ML code = BENZOURN) URN OPIATES (test code = NEGATIVE SCcutoff <2000 NG/ML OPIATURN) URN PHENCYCLIDINE (PCP) NEGATIVE SCcutoff <25 NG/ML (test code = PHENCURN) URN METHADONE (test code = NEGATIVE SCcutoff <300 NG/ML METHAURN) COMPREHENSIVE METABOLIC [id number] 13:18:00 Test Item Value Reference Range Interpretation Comments SODIUM (test code = NA) 141 mmol/L 134-147 N POTASSIUM (test code = K) 3.3 mmol/L 3.4-5.0 L CHLORIDE (test code = CL) 110 mmol/L 100-108 H CARBON DIOXIDE (test code = CO2) 26 mmol/L 21-32 N ANION GAP (test code = GAP) 5.0 GAP calc 4.0-15.0 N GLUCOSE (test code = GLU) 107 MG/DL 70-110 N BLOOD UREA NITROGEN (test code = 8 MG/DL 7-18 N BUN) GLOMERULAR FILTRATION RATE (test estGFR >60 code = GFR) CREATININE (test code = CREAT) MG/DL 0.8-1.3 TOTAL PROTEIN (test code = PROT) G/DL 6.4-8.2 ALBUMIN (test code = ALB) 3.5 G/DL 3.4-5.0 N GLOBULIN (test code = GLOB) GM/dL ALBUMIN/GLOBULIN RATIO (test RATIO 1.2-2.2 code = A/G) CALCIUM (test code = CA) 8.7 MG/DL 8.5-10.1 N BILIRUBIN TOTAL (test code = MG/DL 0.2-1.2 BILT) SGOT/AST (test code = AST) Unit/L 15-37 SGPT/ALT (test code = ALT) Unit/L 12-78 ALKALINE PHOSPHATASE TOTAL (test Unit/L 50-136 code = ALKP) LIPID PROFILE (CORONARY RISK)2020-01-27 13:18:00 Test Item Value Reference Range Interpretation Comments TRIGLYCERIDES (test code = TRIG) MG/DL 0-150 CHOLESTEROL (test code = CHOL) MG/DL 133-200 CHOLESTEROL/HDL RATIO (test code = RATIO >0 CHOLHDL) HDL CHOLESTEROL (test code = HDL) MG/DL 40-59 NON-HDL CHOLESTEROL (test code = NHDL) mg/dL <130 LIPOPROTEIN LDL (test code = LDL) MG/DL 0-129 LDL/HDL (test code = LDL/HDL) Ratio 1.48-3.22 Avg THYROID STIMULATING [id number] 13:18:00 Test Item Value Reference Range Interpretation Comments THYROID STIMULATING HORMONE (test mcIU/ML 0.340-4.820 code = TSH) GLYCOSYLATED HEMOGLOBIN [id number] 13:18:00 Test Item Value Reference Range Interpretation Comments GLYCOSYLATED HEMOGLOBIN (HA1C) 4.7 % A1C 0.0-5.7 N (test code = GLYHGB) ESTIMATED AVERAGE GLUCOSE (test 88 MG/DLest code = EAG) CBC W/AUTO [id number] 13:07:00 Test Item Value Reference Range Interpretation Comments WHITE BLOOD CELL (test code = 8.2 K/mm3 3.5-11.0 N WBC) RED BLOOD CELL (test code = RBC) 3.95 M/mm3 4.70-6.10 L HEMOGLOBIN (test code = HGB) 11.0 G/DL 12.3-15.9 L HEMATOCRIT (test code = HCT) 34.5 % 35.8-46.7 L MEAN CELL VOLUME (test code = 87.3 Fl 86.3-98.9 N MCV) MEAN CELL HGB (test code = MCH) 27.8 pg 28.9-34.4 L MEAN CELL HGB CONCETRATION (test 31.9 G/DL 32.1-34.5 L code = MCHC) RED CELL DISTRIBUTION WIDTH (test 14.2 SD 11.5-14.5 N code = RDW) PLATELET COUNT (test code = PLT) 421.0 K/mm3 150-450 N MEAN PLATELET VOLUME (test code = 10.00 fL 7.0-9.6 H MPV) NEUTROPHIL % (test code = NT%) 68.2 % 40-76 LYMPHOCYTE % (test code = LY%) 18.8 % 20.5-51.1 L MONOCYTE % (test code = MO%) 10.2 % 1.7-9.3 H EOSINOPHIL % (test code = EO%) 2.6 % 0.0-6.0 N BASOPHIL % (test code = BA%) 0.2 % 0.0-2.0 N NEUTROPHIL # (test code = NT#) 5.56 K/mm3 1.8-7.6 N LYMPHOCYTE # (test code = LY#) 1.5 K/mm3 0.6-3.0 N MONOCYTE # (test code = MO#) 0.8 K/mm3 0.2-1.5 N EOSINOPHIL # (test code = EO#) 0.2 K/mm3 0.0-0.4 N BASOPHIL # (test code = BA#) 0.0 K/mm3 0.0-0.2 N MANUAL DIFF REQUIRED (test code = NO DIFF/SCN CRITERIA MDIFF) HGB [id number] 06:28:00 Test Item Value Reference Range Interpretation Comments HEMOGLOBIN (test code = HGB) 10.8 G/DL 12.3-15.9 L HEMATOCRIT (test code = HCT) 34.9 % 35.8-46.7 L HGB [id number] 23:04:00 Test Item Value Reference Range Interpretation Comments HEMOGLOBIN (test code = HGB) 10.9 G/DL 12.3-15.9 L HEMATOCRIT (test code = HCT) 34.5 % 35.8-46.7 L HGB [id number] 14:54:00 Test Item Value Reference Range Interpretation Comments HEMOGLOBIN (test code = HGB) 10.7 G/DL 12.3-15.9 L HEMATOCRIT (test code = HCT) 34.6 % 35.8-46.7 L COMPREHENSIVE METABOLIC [id number] 07:07:00 Test Item Value Reference Range Interpretation Comments SODIUM (test code = NA) 142 mmol/L 134-147 N POTASSIUM (test code = 3.5 mmol/L 3.4-5.0 N K) CHLORIDE (test code = 108 mmol/L 100-108 N CL) CARBON DIOXIDE (test 30 mmol/L 21-32 N code = CO2) ANION GAP (test code = 4.0 GAP calc 4.0-15.0 N GAP) GLUCOSE (test code = 110 MG/DL 70-110 N GLU) BLOOD UREA NITROGEN 10 MG/DL 7-18 N (test code = BUN) GLOMERULAR FILTRATION >=60 max estimate >60 RATE (test code = GFR) estGFR CREATININE (test code = 1.3 MG/DL 0.8-1.3 N CREAT) TOTAL PROTEIN (test code 6.5 G/DL 6.4-8.2 N = PROT) ALBUMIN (test code = 3.0 G/DL 3.4-5.0 L ALB) GLOBULIN (test code = 3.5 GM/dL GLOB) ALBUMIN/GLOBULIN RATIO 0.9 RATIO 1.2-2.2 L (test code = A/G) CALCIUM (test code = CA) 8.4 MG/DL 8.5-10.1 L BILIRUBIN TOTAL (test 0.90 MG/DL 0.2-1.2 N code = BILT) SGOT/AST (test code = 13 Unit/L 15-37 L AST) SGPT/ALT (test code = 13 Unit/L 12-78 N ALT) ALKALINE PHOSPHATASE 67 Unit/L 50-136 N TOTAL (test code = ALKP) CBC W/AUTO [id number] 07:01:00 Test Item Value Reference Range Interpretation Comments WHITE BLOOD CELL (test code = 6.7 K/mm3 3.5-11.0 N WBC) RED BLOOD CELL (test code = RBC) 3.82 M/mm3 4.70-6.10 L HEMOGLOBIN (test code = HGB) 10.4 G/DL 12.3-15.9 L HEMATOCRIT (test code = HCT) 33.6 % 35.8-46.7 L MEAN CELL VOLUME (test code = 88.0 Fl 86.3-98.9 N MCV) MEAN CELL HGB (test code = MCH) 27.2 pg 28.9-34.4 L MEAN CELL HGB CONCETRATION (test 31.0 G/DL 32.1-34.5 L code = MCHC) RED CELL DISTRIBUTION WIDTH (test 14.1 SD 11.5-14.5 N code = RDW) PLATELET COUNT (test code = PLT) 403.0 K/mm3 150-450 N MEAN PLATELET VOLUME (test code = 9.80 fL 7.0-9.6 H MPV) NEUTROPHIL % (test code = NT%) 56.1 % 40-76 N LYMPHOCYTE % (test code = LY%) 28.4 % 20.5-51.1 N MONOCYTE % (test code = MO%) 9.8 % 1.7-9.3 H EOSINOPHIL % (test code = EO%) 5.1 % 0.0-6.0 N BASOPHIL % (test code = BA%) 0.6 % 0.0-2.0 N NEUTROPHIL # (test code = NT#) 3.77 K/mm3 1.8-7.6 N LYMPHOCYTE # (test code = LY#) 1.9 K/mm3 0.6-3.0 N MONOCYTE # (test code = MO#) 0.7 K/mm3 0.2-1.5 N EOSINOPHIL # (test code = EO#) 0.3 K/mm3 0.0-0.4 N BASOPHIL # (test code = BA#) 0.0 K/mm3 0.0-0.2 N MANUAL DIFF REQUIRED (test code = NO DIFF/SCN CRITERIA MDIFF)
[2022-11-18] MEDS ORDERED: MORPHINE 2 MG/ML SYR ONE (03:27)
[2022-11-18] MEDS ORDERED: ONDANSETRON 4 MG/2 ML VIAL ONE (03:27)
[2022-11-18 04:13] LABS: Absolute Lymphocytes (CBC) 1.3 K/uL (0.7-4.9); Hematocrit 22.3 % (39.6-49.0); Lymphocytes % 21.3 % (15.3-44.8); MCV 71.4 fL (80-100); RBC Red Blood Cell Count 3.12 M/uL (4.33-5.43)
[2022-11-18 04:14] LABS: Protime INR 1.04
[2022-11-18 05:27] LABS: Albumin 3.3 g/dL (3.4-5.0); Bilirubin Total 0.5 mg/dL (0.2-1.0); Potassium 3.3 mmol/L (3.5-5.1); Protein, Total 6.5 g/dL (6.4-8.2); Troponin High Sensitivity 13.5 pg/mL (<58.9)
--- NOTE | 2022-11-18 05:44 | EDPHYS ---
Physician Documentation [facility] Name: Malcom Delgado Age: 67 yrs Sex: Male : 1955 Arrival Date: 11/18/2022 Time: 02:37 Bed 5 Private MD: ED Physician Andra Sauceda HPI: 11/18 03:28 This 67 yrs old Black Male presents to ER via Ambulatory with complaints of Dizziness, sp3 Pain at base of skull. 03:28 67-year-old male with history of hypertension presents with basilar headache, vertigo, sp3 near syncope, and on ROS blurry vision for approximately 24 hours. Patient denies sudden onset, trauma, focal weakness, chest pain, neck pain, shortness of breath, abdominal pain, nausea, vomiting, diarrhea, fever, rash, URI symptoms, earache, any other symptoms on ROS at this time. He did have a cage placed on his lumbar spine and a fusion procedure in early September 2022. Patient has had routine follow-up and is had no complications from that procedure.. Historical: - Allergies: 02:51 Coreg; bb - Home Meds: 03:09 amlodipine 10 mg oral tab 1 tab BID [Active]; gabapentin oral for Has not been taking kd3 [Active]; doxazosin 2 mg oral tab 1 tab once daily [Active]; hydralazine 100 mg Oral tab [Active]; - PMHx: 02:51 Hypertension; bb - PSHx: 02:51 multiple back surgeries; bb - Immunization history:: Client reports receiving the 2nd dose of the Covid vaccine, Moderna. - Social history:: Smoking status: Patient reports the use of cigarette tobacco products. ROS: 03:30 Constitutional: Negative for fever, chills, and weight loss, Eyes: Negative for injury, sp3 pain, redness, and discharge, ENT: Negative for injury, pain, and discharge, Neck: Negative for injury, pain, and swelling, Respiratory: Negative for shortness of breath, cough, wheezing, and pleuritic chest pain, Abdomen/GI: Negative for abdominal pain, nausea, vomiting, diarrhea, and constipation, Back: Negative for injury and pain, MS/Extremity: Negative for injury and deformity, Skin: Negative for injury, rash, and discoloration, Psych: Negative for depression, anxiety, suicide ideation, homicidal ideation, and hallucinations, Allergy/Immunology: Negative for hives, rash, and allergies, Endocrine: Negative for neck swelling, polydipsia, polyuria, polyphagia, and marked weight changes. 03:30 All other systems are negative. Exam: 03:30 Constitutional: This is a well developed, well nourished patient who is awake, alert, sp3 and in no acute distress. Head/Face: Normocephalic, atraumatic. ENT: Nares patent. No nasal discharge, no septal abnormalities noted. External auditory canals are clear. Oropharynx with no redness, swelling, or masses, exudates, or evidence of obstruction, uvula midline. Mucous membranes moist. Neck: Trachea midline, no thyromegaly or masses palpated, and no cervical lymphadenopathy. Supple, full range of motion without nuchal rigidity, or vertebral point tenderness. No Meningismus. Chest/axilla: Normal chest wall appearance and motion. Nontender with no deformity. No lesions are appreciated. Cardiovascular: Regular rate and rhythm with a normal S1 and S2. No gallops, murmurs, or rubs. Normal PMI, no JVD. No pulse deficits. Respiratory: Lungs have equal breath sounds bilaterally, clear to auscultation and percussion. No rales, rhonchi or wheezes noted. No increased work of breathing, no retractions or nasal flaring. Abdomen/GI: Soft, non-tender, with normal bowel sounds. No distension or tympany. No guarding or rebound. No evidence of tenderness throughout. Back: No spinal tenderness. No costovertebral tenderness. Full range of motion. Skin: Warm, dry with normal turgor. Normal color with no rashes, no lesions, and no evidence of cellulitis. MS/ Extremity: Pulses equal, no cyanosis. Neurovascular intact. Full, normal range of motion. Neuro: Awake and alert, GCS 15, oriented to person, place, time, and situation. Cranial nerves II-XII grossly intact. Motor strength 5/5 in all extremities. Sensory grossly intact. Cerebellar exam normal. Normal gait. Psych: Awake, alert, with orientation to person, place and time. Behavior, mood, and affect are within normal limits. Vital Signs: 02:49 BP 149 / 69; Pulse 99; Resp 16 S; Temp 98.7(O); Pulse Ox 99% on R/A; Weight 74.84 kg bb (R); Height 5 ft. 9 in. (175.26 cm) (R); Pain 9/10; 03:30 BP 149 / 64; Pulse 94; Resp 21; Pulse Ox 100% on R/A; kd3 04:37 BP 126 / 58; Pulse 87; Resp 12; Pulse Ox 99% on R/A; kd3 05:05 BP 137 / 62; Pulse 85; Resp 19; Pulse Ox 100% ; kd3 06:10 BP 133 / 61; Pulse 85; Resp 11; Pulse Ox 100% on R/A; kd3 06:31 BP 129 / 66; Pulse 86; Resp 12; Temp 98.7; Pulse Ox 98% on R/A; kd3 06:48 BP 133 / 65; Pulse 84; Resp 14; Temp 98.6; Pulse Ox 95% on R/A; kd3 06:52 BP 129 / 61; Pulse 84; Resp 12; Temp 98.6; Pulse Ox 98% on R/A; kd3 06:58 BP 132 / 62; Pulse 81; Resp 14; Temp 98.2; Pulse Ox 98% on R/A; kd3 08:32 BP 109 / 79; Pulse 68; Resp 16; Pulse Ox 99% on R/A; hb 02:49 Body Mass Index 24.37 (74.84 kg, 175.26 cm) bb MDM: 02:55 Patient medically screened. sp3 03:31 Data reviewed: vital signs, nurses notes. ED course: 67-year-old male with a history of sp3 hypertension presents with basilar headache and blurry vision. Diagnosis includes cerebellar bleed, subarachnoid hemorrhage, ruptured cerebral aneurysm, mass, hypertensive headache, general headache. I do not believe patient has infection or abscess. Work-up will include CT scan of the head, laboratory values, EKG serial neuro exams, cardiac monitoring. Patient will be treated with morphine 2 mg and Zofran 4 mg IV. Disposition pending and will be dependent on agnostic results. . 05:41 ED course: CT demonstrates no acute abnormality and chemistries are within normal sp3 limits with mild hypokalemia. Patient feels better with pain medication and we will replenish his potassium. After transfusion of 2 units PRBCs for his hemoglobin of 7, patient will be safe for discharge with PCP follow-up.. 11/18 02:55 Order name: CBC with Diff; Complete Time: 04:41 sp3 11/18 02:55 Order name: High Sensitivity Troponin; Complete Time: 05:41 sp3 11/18 02:55 Order name: Protime (+inr); Complete Time: 04:41 sp3 11/18 02:55 Order name: CMP; Complete Time: 05:41 sp3 11/18 04:46 Order name: Type And Screen sp3 11/18 02:55 Order name: EKG; Complete Time: 02:55 sp3 11/18 02:55 Order name: CT Head Brain wo Cont sp3 11/18 04:48 Order name: Type and Screen EDMS 11/18 05:47 Order name: ABO/RH no charge; Complete Time: 05:57 EDMS 11/18 02:55 Order name: Cardiac monitoring; Complete Time: 03:23 sp3 11/18 02:55 Order name: EKG - Nurse/Tech; Complete Time: 03:23 sp3 11/18 02:55 Order name: IV Saline Lock; Complete Time: 03:23 sp3 11/18 02:55 Order name: Labs collected and sent; Complete Time: 03:23 sp3 11/18 02:55 Order name: NPO; Complete Time: 03:23 sp3 11/18 02:55 Order name: O2 Sat Monitoring; Complete Time: 03:23 sp3 Administered Medications: 03:31 Drug: morphine 2 mg Route: IVP; Infused Over: 4 mins; Site: right forearm; kd3 04:38 Follow up: Response: No adverse reaction; Pain is decreased kd3 03:31 Drug: Zofran (Ondansetron) 4 mg Route: IVP; Site: right forearm; kd3 04:38 Follow up: Response: No adverse reaction kd3 06:02 Drug: Potassium Chloride 20 mEq Route: PO; kd3 06:11 Follow up: Response: No adverse reaction kd3 06:26 Drug: Dilaudid (HYDROmorphone) 1 mg Route: IVP; Site: right forearm; kd3 07:04 Follow up: Response: No adverse reaction; Pain is decreased kd3 Disposition Summary: 11/18/22 05:43 Discharge Ordered Location: Home sp3 Condition: Stable sp3 Diagnosis - Headache sp3 - Anemia, unspecified sp3 Followup: sp3 - With: Private Physician - When: Upon discharge from the Emergency Department - Reason: Continuance of care Discharge Instructions: - Discharge Summary Sheet sp3 - Anemia sp3 - General Headache Without Cause sp3 Forms: - Medication Reconciliation Form sp3 - Thank You Letter sp3 - Antibiotic Education sp3 - Prescription Opioid Use sp3 Signatures: Dispatcher [employer] Nhi Collier RN RN Andra Spear MD MD sp3 Evelyn Walker RN RN kd3 Corrections: (The following items were deleted from the chart) 03:30 02:51 Home Meds: amlodipine oral 1 tab twice a day; gaetano kd3
--- NOTE | 2022-11-18 05:44 | ER ---
Nurse's Notes [facility] Name: Malcom Delgado Age: 67 yrs Sex: Male : 1955 Arrival Date: 11/18/2022 Time: 02:37 Bed 5 Private MD: Diagnosis: Headache;Anemia, unspecified Presentation: 11/18 02:49 Chief complaint: Patient states: he has been feeling dizzy for 4 to 5 days and is bb having pain at the base of his skull the pain is worsening and woke him up tonight. Coronavirus screen: At this time, the client does not indicate any symptoms associated with coronavirus-19. Ebola Screen: No symptoms or risks identified at this time. Initial Sepsis Screen: Does the patient meet any 2 criteria? No. Patient's initial sepsis screen is negative. Does the patient have a suspected source of infection? No. Patient's initial sepsis screen is negative. Risk Assessment: Do you want to hurt yourself or someone else? Patient reports no desire to harm self or others. Onset of symptoms was November 13, 2022. 02:49 Method Of Arrival: Ambulatory bb 02:49 Acuity: AKUA 3 bb Historical: - Allergies: 02:51 Coreg; bb - Home Meds: 03:09 amlodipine 10 mg oral tab 1 tab BID [Active]; gabapentin oral for Has not been taking kd3 [Active]; doxazosin 2 mg oral tab 1 tab once daily [Active]; hydralazine 100 mg Oral tab [Active]; - PMHx: 02:51 Hypertension; bb - PSHx: 02:51 multiple back surgeries; bb - Immunization history:: Client reports receiving the 2nd dose of the Covid vaccine, Moderna. - Social history:: Smoking status: Patient reports the use of cigarette tobacco products. Screenin:53 [facility] ED Fall Risk Assessment (Adult). Abuse screen: Denies threats or abuse. Denies kd3 injuries from another. Nutritional screening: No deficits noted. Tuberculosis screening: No symptoms or risk factors identified. Assessment: 02:48 General: Appears uncomfortable, Behavior is calm, cooperative. Pain: Complains of pain kd3 in base of the skull. Neuro: Level of Consciousness is awake, alert, obeys commands, Oriented to person, place, time, situation. Neuro: Reports dizziness, headache. Respiratory: Airway is patent Trachea midline Respiratory effort is even, unlabored, Respiratory pattern is regular, symmetrical. 05:53 Reassessment: Patient and/or family updated on plan of care and expected duration. Pain kd3 level reassessed. Patient is alert, oriented x 3, equal unlabored respirations, skin warm/dry/pink. General: Pt will be discharged upon completion of blood transfusion. . 06:43 General: Blood transfusion started. kd3 07:03 Reassessment: pt had no adverse reaction in the first 15 minutes of the blood kd3 transfusion. General: Appears in no apparent distress. Behavior is calm, cooperative. 07:22 Reassessment: Blood transfusion continues, see transfusion record. hb 08:32 Reassessment: Second unit PRBCs started, see transfusion record. Discharge pending hb completion of transfusion. Vital Signs: 02:49 BP 149 / 69; Pulse 99; Resp 16 S; Temp 98.7(O); Pulse Ox 99% on R/A; Weight 74.84 kg bb (R); Height 5 ft. 9 in. (175.26 cm) (R); Pain 9/10; 03:30 BP 149 / 64; Pulse 94; Resp 21; Pulse Ox 100% on R/A; kd3 04:37 BP 126 / 58; Pulse 87; Resp 12; Pulse Ox 99% on R/A; kd3 05:05 BP 137 / 62; Pulse 85; Resp 19; Pulse Ox 100% ; kd3 06:10 BP 133 / 61; Pulse 85; Resp 11; Pulse Ox 100% on R/A; kd3 06:31 BP 129 / 66; Pulse 86; Resp 12; Temp 98.7; Pulse Ox 98% on R/A; kd3 06:48 BP 133 / 65; Pulse 84; Resp 14; Temp 98.6; Pulse Ox 95% on R/A; kd3 06:52 BP 129 / 61; Pulse 84; Resp 12; Temp 98.6; Pulse Ox 98% on R/A; kd3 06:58 BP 132 / 62; Pulse 81; Resp 14; Temp 98.2; Pulse Ox 98% on R/A; kd3 08:32 BP 109 / 79; Pulse 68; Resp 16; Pulse Ox 99% on R/A; hb 02:49 Body Mass Index 24.37 (74.84 kg, 175.26 cm) gaetano ED Course: 02:37 Patient arrived in ED. es 02:43 Andra Sauceda MD is Attending Physician. sp3 02:48 Evelyn Walker, PREM is Primary Nurse. kd3 02:51 Triage completed. gaetano 02:51 Arm band placed on Patient placed in an exam room, on a stretcher, on pulse oximetry. gaetano Family accompanied patient. 02:54 Patient has correct armband on for positive identification. Placed in gown. Bed in low kd3 position. 03:16 CT Head Brain wo Cont In Process Unspecified. EDMS 03:23 Protime (+inr) Sent. kd3 03:23 High Sensitivity Troponin Sent. kd3 03:23 CBC with Diff Sent. kd3 03:23 CMP Sent. kd3 03:31 Inserted saline lock: 22 gauge in right forearm, using aseptic technique. Blood kd3 collected. 06:10 Inserted saline lock: 20 gauge in left antecubital area, using aseptic technique. kd3 Administered Medications: 03:31 Drug: morphine 2 mg Route: IVP; Infused Over: 4 mins; Site: right forearm; kd3 04:38 Follow up: Response: No adverse reaction; Pain is decreased kd3 03:31 Drug: Zofran (Ondansetron) 4 mg Route: IVP; Site: right forearm; kd3 04:38 Follow up: Response: No adverse reaction kd3 06:02 Drug: Potassium Chloride 20 mEq Route: PO; kd3 06:11 Follow up: Response: No adverse reaction kd3 06:26 Drug: Dilaudid (HYDROmorphone) 1 mg Route: IVP; Site: right forearm; kd3 07:04 Follow up: Response: No adverse reaction; Pain is decreased kd3 Medication: 02:54 VIS not applicable for this client. kd3 Outcome: 05:43 Discharge ordered by . sp3 11:16 Patient left the ED. Signatures: Dispatcher [employer] EDZenia Celaya Brenda, RN RN Khadijah Gayle RN RN Andra Sauceda MD MD sp3 Evelyn Walker, RN RN kd3 Corrections: (The following items were deleted from the chart) 03:30 02:51 Home Meds: amlodipine oral 1 tab twice a day; gaetano kd3
[2022-11-18] MEDS ORDERED: POTASSIUM CL SA 10 MEQ TAB PO ONE (05:59)
[2022-11-18] MEDS ORDERED: HYDROMORPHONE HCL 1 MG/ML INJ ONE (06:22)
[2022-11-18] MEDS ORDERED: NA CHLORIDE 0.9% 500 ML ONE (06:24)
[2022-11-18] MEDS ORDERED: NA CHLORIDE 0.9% 100 ML ONE (08:12)
--- NOTE | 2022-11-18 10:45 | RAD REPORT ---
EXAM DESCRIPTION: CT - Head Brain Wo Cont - 11/18/2022 4:58 am CLINICAL HISTORY: Dizziness + headache TECHNIQUE: Axial computed tomography images of the head/brain without intravenous contrast. Sagitt al and coronal reformatted images were created and reviewed. This CT exam was performed using one o r more of the following dose reduction techniques: automated exposure control, adjustment of the mA and/or kV according to patient size, and/or use of iterative reconstruction technique. COMPARISON: No relevant prior studies available. FINDINGS: Brain: Unremarkable. No hemorrhage. No significant white matter disease. No edema. Ventricles: Unremarkable. No ventriculomegaly. Bones/joints: Unremarkable. No acute fracture. Soft tissues: Unremarkable. Vasculature: Minimal atherosclerotic disease of the left internal carotid artery. Sinuses: Unremarkable as visualized. No acute sinusitis. Mastoid air cells: Unremarkable as visualized. No mastoid effusion. IMPRESSION: No acute intracranial or extra-axial abnormality. Electronically signed by: Florencio Shankar MD 11/18/2022 3:51 AM PROCESSOR INSPECTOR Due to temporary technical issues with the PACS/Fluency reporting system, reports are being signed by the in house radiologists without review as a courtesy to insure prompt reporting. The interpreting radiologist is fully responsible for the content of the report.
[2022-11-18 11:54] VITALS: TEMP 98.2
[2022-11-18 11:55] VITALS: BP 109/79; O2SAT 99
--- NOTE | 2022-11-18 17:42 | EKG ---
Test Date: 2022-11-18 Test Time: 03:20:41 Evaporative Cooler Installer: BAHAY MEASUREMENT RESULTS: Intervals: Rate: 98 IN: 154 QRSD: 82 QT: 358 QTc: 457 [place]: P: 63 IN: 154 QRS: 38 T: 63 INTERPRETIVE STATEMENTS: Normal sinus rhythm Normal ECG Compared to ECG 06/18/2017 03:44:39 Sinus arrhythmia no longer present Left-axis deviation no longer present Electronically Signed On 11-18-22 17:41:48 CONCRETE BATCH PLANT OPERATOR by Isreal Varma
== END 2022-11-18 11:16 | disposition home or self-care (01) ==
LOC: ER 02:29
PROC: 30233N1 Transfusion of Nonautologous Red Blood Cells into Peripheral Vein, Percutaneous Approach (ICD-10-PCS; principal; 2022-11-18)
DX: D64.9 Anemia, unspecified (principal); I10 Essential (primary) hypertension; Z88.8 Allergy status to other drugs, medicaments and biological substances; Z72.0 Tobacco use
CPT/HCPCS: 93005; 85025; 36415; 86900; 86850; 85610; 86901; 84484; 80053; 70450; 96375; 96374; 99284; 36430; J2270; J1170; P9016 ×2; J7040; J2405

== ENCOUNTER 2023-12-12 12:08 | Observation (INO) | payer OTHER ==
[2023-12-12] MEDS ORDERED: ONDANSETRON 4 MG (ODT) TAB ONE (12:27)
[2023-12-12 13:26] LABS: Absolute Lymphocytes (CBC) 1.6 K/uL (0.7-4.9); Lymphocytes % 29.4 % (15.3-44.8); MCV 73.3 fL (80-100); MPV 7.1 fL (7.6-11.3); Platelets 327 thou/uL (152-406); RBC Red Blood Cell Count 3.14 M/uL (4.33-5.43)
--- NOTE | 2023-12-12 13:32 | RAD REPORT ---
EXAM DESCRIPTION: CT - Head Brain Wo Cont - 12/12/2023 12:41 pm CLINICAL HISTORY: HEADACHE COMPARISON: Head Brain Wo Cont dated 11/18/2022 TECHNIQUE: Noncontrast head CT images were obtained without IV contrast. Multiplanar reformats were generated and reviewed. All CT scans are performed using dose optimization technique as appropriate and may include automated exposure control or mA/KV adjustment according to patient size. FINDINGS: No intracranial hemorrhage, mass, or edema. Midline structures are unremarkable. Normal ventricular caliber for age. Li-white matter differentiation is preserved, without evidence of acute infarct. No abnormal extra- axial fluid collections. Mastoid air cells and visualized portions of the paranasal sinuses are clear. No acute bony findings. IMPRESSION: No evidence of an acute intracranial process.
--- NOTE | 2023-12-12 13:33 | RAD REPORT ---
EXAM DESCRIPTION: Berenice Single View12/12/2023 12:50 pm CLINICAL HISTORY: CHEST PAIN COMPARISON: No comparisons TECHNIQUE: Portable AP view of the chest. FINDINGS: The lungs are clear. No pneumothorax or effusion. The cardiomediastinal contours are unre markable. IMPRESSION: No acute cardiopulmonary process.
[2023-12-12 13:45] LABS: ALT/SGPT 13 U/L (16-61); AST/SGOT 8 U/L (15-37); Albumin 3.2 g/dL (3.4-5.0); Alkaline Phosphatase 67 U/L (45-117); BUN Blood Urea Nitrogen 8 mg/dL (7-18); Bicarbonate 25 mEq/L (21-32); Bilirubin Total 0.3 mg/dL (0.2-1.0); Glomerular Filtration Rate 44 ml/min (=/>90); Glucose Level 100 mg/dL (74-106); Magnesium 2.2 mg/dL (1.6-2.4); Potassium 3.8 mEq/L (3.5-5.1); Protein, Total 6.4 g/dL (6.4-8.2); Sodium Level 141 mEq/L (136-145); Troponin High Sensitivity 14.6 pg/mL (<58.9)
[2023-12-12 13:46] LABS: Bilirubin Direct < 0.1 mg/dL (0-0.2); Bilirubin Indirect, Calculated ND mg/dL (0.2-0.8)
[2023-12-12 14:03] LABS: Blood Morphology Comment NOTED (NOT SEEN); Platelet Estimate ADEQ; Polychromasia 1+
[2023-12-12] MEDS ORDERED: ACETAMINOPHEN 500 MG TAB ONE (15:38)
[2023-12-12] MEDS ORDERED: DIPHENHYDRAMINE 50 MG/ML VIAL ONE ×2 (15:38→19:46)
[2023-12-12] MEDS ORDERED: METOCLOPRAMIDE 10 MG/2mL INJ ONE (15:38)
[2023-12-12] MEDS ORDERED: NA CHLORIDE 0.9% 1,000 ML ONE ×2 (15:39→19:46)
--- NOTE | 2023-12-12 16:11 | EDPHYS ---
Physician Documentation [facility] Name: Malcom Delgado Age: 68 yrs Sex: Male : 1955 Arrival Date: 12/12/2023 Time: 12:08 Bed 17 Private MD: ED Physician Javi Davidson HPI: 12/12 12:39 This 68 yrs old Black Male presents to ER via Ambulatory with complaints of Dizziness. rt 12:39 Patient presents to the ED with a dizziness described as lightheadedness as well as a rt frontal headache starting 4 days ago. Patient states that has been dizzy somewhat for the past couple weeks, has been worsening the past few days. Reports nausea without vomiting. He denies vertiginous symptoms. Denies other acute complaint, symptoms are moderate severity, no other aggravating or elevating factors. . Historical: - Allergies: 12:21 Coreg; ld1 - PMHx: 12:21 Hypertension; ld1 - PSHx: 12:21 multiple back surgeries; ld1 - Immunization history:: Adult Immunizations up to date. - Social history:: Smoking status: Patient denies any tobacco usage or history of. Patient/guardian denies using alcohol. - Family history:: not pertinent. ROS: 12:39 Constitutional: Negative for fever, chills, and weight loss, rt 12:39 Respiratory: Negative for shortness of breath, cough, wheezing, and pleuritic chest pain, MS/Extremity: Negative for injury and deformity, Skin: Negative for injury, rash, and discoloration, Psych: Negative for depression, anxiety, suicide ideation, homicidal ideation, and hallucinations, 12:39 Cardiovascular: Positive for chest pain, Negative for edema, 12:39 Abdomen/GI: Positive for nausea, Negative for abdominal pain, vomiting, 12:39 Neuro: Positive for dizziness, headache, Negative for altered mental status, Exam: 12:39 Constitutional: This is a well developed, well nourished patient who is awake, alert, rt and in no acute distress. Head/Face: Normocephalic, atraumatic. Chest/axilla: Normal chest wall appearance and motion. Nontender with no deformity. No lesions are appreciated. Cardiovascular: Regular rate and rhythm with a normal S1 and S2. No gallops, murmurs, or rubs. Normal PMI, no JVD. No pulse deficits. Respiratory: Lungs have equal breath sounds bilaterally, clear to auscultation and percussion. No rales, rhonchi or wheezes noted. No increased work of breathing, no retractions or nasal flaring. Abdomen/GI: Soft, non-tender, with normal bowel sounds. No distension or tympany. No guarding or rebound. No evidence of tenderness throughout. Skin: Warm, dry with normal turgor. Normal color with no rashes, no lesions, and no evidence of cellulitis. MS/ Extremity: Pulses equal, no cyanosis. Neurovascular intact. Full, normal range of motion. Neuro: Awake and alert, GCS 15, oriented to person, place, time, and situation. Cranial nerves II-XII grossly intact. Motor strength 5/5 in all extremities. Sensory grossly intact. Cerebellar exam normal. Normal gait. Psych: Awake, alert, with orientation to person, place and time. Behavior, mood, and affect are within normal limits. 18:38 ECG was reviewed by the Attending Physician. rt Vital Signs: 12:22 BP 140 / 67; Pulse 100; Resp 18; Temp 97.8(TE); Pulse Ox 99% on R/A; Weight 77.11 kg; ld1 Height 5 ft. 9 in. ; Pain 0/10; 19:20 BP 136 / 59; Pulse 74; Resp 17; Temp 98.5(TE); Pulse Ox 98% on R/A; lg3 12:22 Body Mass Index 25.10 (77.11 kg, 175.26 cm) ld1 12:22 Pain Scale: Adult ld1 MDM: 12:28 Patient medically screened. rt 18:38 Differential diagnosis: Anemia, intracranial hemorrhage, cold symptoms, dysrhythmia, rt ACS. Data reviewed: vital signs, nurses notes, lab test result(s), EKG, radiologic studies. Consideration of Admission/Observation Patient was admitted/placed on observation. Management of patient was discussed with the following: Hospitalist: Agrees to admit. I considered the following discharge prescriptions or medication management in the emergency department Medications were administered in the Emergency Department. See MAR. Independent interpretation of the following test(s) in the Emergency Department CT Scan: My interpretation is No intracranial hemorrhage interpretation of CT scan images. Care significantly affected by the following chronic conditions: Hypertension. Counseling: I had a detailed discussion with the patient and/or guardian regarding the historical points, exam findings, and any diagnostic results supporting the discharge/admit diagnosis, lab results, radiology results, the need for further work-up and treatment in the hospital. Response to treatment: the patient's symptoms have mildly improved after treatment. 12/12 12:31 Order name: Basic Metabolic Panel; Complete Time: 14:07 rt 12/12 12:31 Order name: CBC with Diff; Complete Time: 14:07 rt 12/12 12:31 Order name: LFT's; Complete Time: 14:07 rt 12/12 12:31 Order name: Magnesium; Complete Time: 14:07 rt 12/12 12:31 Order name: Troponin HS; Complete Time: 14:07 rt 12/12 13:30 Order name: Manual Differential; Complete Time: 14:07 EDMS 12/12 15:26 Order name: Type And Screen rt 12/12 16:17 Order name: Packed RBC Leukored EDMS 12/12 16:17 Order name: Hematocrit EDMS 12/12 16:17 Order name: Hemoglobin EDMS 12/12 16:18 Order name: ABO/RH typing EDMS 12/12 16:18 Order name: Antibody Screen EDMS 12/12 18:34 Order name: ABO/RH no charge EDMS 12/13 04:33 Order name: CBC with Automated Diff EDMS 12/13 04:39 Order name: Basic Metabolic Panel EDMS 12/13 04:39 Order name: Magnesium EDMS 12/13 11:27 Order name: CBC with Automated Diff EDMS 12/13 11:27 Order name: Retic Count EDMS 12/13 12:09 Order name: Transferrin Sat/Iron Binding EDMS 12/13 12:09 Order name: Ferritin EDMS 12/13 12:09 Order name: Folic Acid, (Folate) EDMS 12/13 12:09 Order name: Vitamin B12 Level EDMS 12/13 12:39 Order name: Manual Differential EDMS 12/12 12:31 Order name: XRAY Chest (1 view); Complete Time: 13:34 rt 12/12 12:31 Order name: CT Head Brain wo Cont; Complete Time: 13:34 rt 12/12 21:42 Order name: US EDMS 12/12 12:31 Order name: EKG; Complete Time: 12:32 rt 12/12 12:31 Order name: Cardiac monitoring; Complete Time: 19:31 rt 12/12 12:31 Order name: EKG - Nurse/Tech; Complete Time: 19:31 rt 12/12 12:31 Order name: IV Saline Lock; Complete Time: 19:31 rt 12/12 12:31 Order name: Labs collected and sent; Complete Time: 19:31 rt 12/12 12:31 Order name: O2 Per Protocol; Complete Time: 19:32 rt 12/12 12:31 Order name: O2 Sat Monitoring; Complete Time: 19:32 rt 12/12 17:56 Order name: Labs - recollect needed: collect abo/rh no charge; Complete Time: 19:31 bd EC:38 Rate is 61 beats/min. Rhythm is regular, Normal Sinus Rhythm with No ectopy. QRS [place] rt is Normal. OR interval is normal. QRS interval is normal. QT interval is normal. No Q waves. No ST changes noted. Administered Medications: 12:33 Drug: Ondansetron Oral Disintegrating Tablet Oral Disintegrating Tablet 4 mg PO once ld1 Route: PO; 12/13 02:45 Follow up: Response: No adverse reaction [facility] 12/12 15:46 Drug: NS 0.9% IV 1000 ml IV at 1 bolus Per protocol; 1000 mL bolus Route: IV; Rate: 1 iw bolus; Site: left hand; 12/13 02:44 Follow up: IV Status: Completed infusion; IV Intake: 1000ml [facility] 12/12 15:47 Drug: metoCLOPramide IVP 10 mg IVP once; over 1 to 2 minutes Route: IVP; Site: left hand; 12/13 02:44 Follow up: Response: No adverse reaction 3 12/12 15:47 Drug: diphenhydrAMINE IVP 25 mg IVP once Route: IVP; Site: left hand; 12/13 02:44 Follow up: Response: No adverse reaction [facility] 12/12 16:03 Drug: Acetaminophen PO 1000 mg PO once Route: PO; 12/13 02:44 Follow up: Response: No adverse reaction [facility] Disposition Summary: 12/12/23 16:10 Hospitalization Ordered Notes: Hospitalization Status: Observation rt Provider: Ward Cotter rt Condition: Stable rt Problem: new rt Symptoms: have improved rt Bed/Room Type: Standard rt Location: [facility] ER HOLD(12/12/23 20:09) rv1 Room Assignment: ERHOLD-(12/12/23 20:09) rv1 Diagnosis - Headache rt - Near syncope rt - Symptomatic anemia rt Forms: - Medication Reconciliation Form rt - SBAR form rt - Leadership Thank You Letter rt Signatures: Dispatcher [employer] EDBarbara Chavez Irene, RN RN iw Karen Melendez RN RN ld1 Javi Davidson MD MD rt Katie Vasquez rv1 [place] RN lg3 Corrections: (The following items were deleted from the chart) 12/12 16:50 16:10 Telemetry/MedSurg (observation) rt bd 16:50 16:10 rt bd 19:44 16:[address] [facility] ER HOLD bd rv1 19:44 16:50 ERHOLD- bd rv1 20:00 19:44 214 rv1 ty 20:09 19:44 Telemetry/MedSurg (observation) rv1 rv1 20:09 20:00 ty rv1
--- NOTE | 2023-12-12 16:11 | ER ---
Nurse's Notes [facility] Name: Malcom Delgado Age: 68 yrs Sex: Male : 1955 Arrival Date: 12/12/2023 Time: 12:08 Bed 17 Private MD: Diagnosis: Headache;Near syncope;Symptomatic anemia Presentation: 12/12 12:22 Chief complaint: Patient states: Dizziness and headache 24/7 X 4 days, worse when ld1 standing or moving. Intermittent chest pain. Nausea. Coronavirus screen: At this time, the client does not indicate any symptoms associated with coronavirus-19. Ebola Screen: No symptoms or risks identified at this time. Initial Sepsis Screen: Does the patient meet any 2 criteria? No. Patient's initial sepsis screen is negative. Does the patient have a suspected source of infection? No. Patient's initial sepsis screen is negative. Risk Assessment: Do you want to hurt yourself or someone else? Patient reports no desire to harm self or others. Onset of symptoms was December 12, 2023. 12:22 Method Of Arrival: Ambulatory ld1 12:22 Acuity: AKUA 3 ld1 Triage Assessment: 12:22 General: Appears in no apparent distress. comfortable, Behavior is calm, cooperative, ld1 appropriate for age. Pain: Denies pain. EENT: No signs and/or symptoms were reported regarding the EENT system. Neuro: Level of Consciousness is awake, alert, obeys commands, Oriented to person, place, time, situation, Reports dizziness. Cardiovascular: Capillary refill < 3 seconds Patient's skin is warm and dry. Respiratory: Airway is patent Respiratory effort is even, unlabored. GI: Abdomen is flat, non-distended. : No signs and/or symptoms were reported regarding the genitourinary system. Derm: No signs and/or symptoms reported regarding the dermatologic system. Musculoskeletal: No signs and/or symptoms reported regarding the musculoskeletal system. Historical: - Allergies: 12:21 Coreg; ld1 - PMHx: 12:21 Hypertension; ld1 - PSHx: 12:21 multiple back surgeries; ld1 - Immunization history:: Adult Immunizations up to date. - Social history:: Smoking status: Patient denies any tobacco usage or history of. Patient/guardian denies using alcohol. - Family history:: not pertinent. Screenin/23 02:41 [facility] ED Fall Risk Assessment (Adult) History of falling in the last 3 months, lg3 including since admission No falls in past 3 months (0 pts). Abuse screen: Denies threats or abuse. Denies injuries from another. Nutritional screening: No deficits noted. Tuberculosis screening: No symptoms or risk factors identified. Assessment: 12/12 19:06 General: Appears in no apparent distress. comfortable. Pain: Denies pain. Neuro: No lg3 deficits noted. Ortiz Agitation-Sedation Scale (RASS): 0 - Alert and Calm Level of Consciousness is awake, alert, obeys commands, Oriented to person, place, time, situation, Reports dizziness, weakness. Cardiovascular: No deficits noted. Denies chest pain, shortness of breath, Capillary refill < 3 seconds Clubbing of nail beds is absent JVD is absent Patient's skin is warm and dry. Respiratory: No deficits noted. Airway is patent Respiratory effort is even, unlabored, Respiratory pattern is regular, symmetrical. GI: No deficits noted. No signs and/or symptoms were reported involving the gastrointestinal system. Abdomen is flat, non-distended. : No deficits noted. No signs and/or symptoms were reported regarding the genitourinary system. EENT: No deficits noted. No signs and/or symptoms were reported regarding the EENT system. Derm: No deficits noted. No signs and/or symptoms reported regarding the dermatologic system. Skin is intact, is healthy with good turgor, Skin is dry, Skin is normal, Skin temperature is warm. Musculoskeletal: No deficits noted. No signs and/or symptoms reported regarding the musculoskeletal system. Circulation, motion, and sensation intact. Range of motion: intact in all extremities. Vital Signs: 12:22 BP 140 / 67; Pulse 100; Resp 18; Temp 97.8(TE); Pulse Ox 99% on R/A; Weight 77.11 kg; ld1 Height 5 ft. 9 in. ; Pain 0/10; 19:20 BP 136 / 59; Pulse 74; Resp 17; Temp 98.5(TE); Pulse Ox 98% on R/A; lg3 12:22 Body Mass Index 25.10 (77.11 kg, 175.26 cm) ld1 12:22 Pain Scale: Adult ld1 ED Course: 12:10 Patient arrived in ED. mr 12:12 Javi Davidson MD is Attending Physician. rt 12:22 Arm band placed on right wrist. ld1 12:23 Triage completed. ld1 12:43 CT Head Brain wo Cont In Process Unspecified. EDMS 12:49 XRAY Chest (1 view) In Process Unspecified. EDMS 15:57 George Sahu, RN is Primary Nurse. rs5 16:10 Ward Cotter MD is Hospitalizing Provider. rt 17:17 Type And Screen Sent. rs5 19:06 Report received from PREM Vazquez. lg3 19:32 ABO/RH typing Sent. lg3 19:32 Antibody Screen Sent. lg3 19:32 Hematocrit Sent. lg3 19:32 Hemoglobin Sent. lg3 19:32 Packed RBC Leukored Sent. lg3 12/13 02:41 Patient has correct armband on for positive identification. lg3 02:41 No provider procedures requiring assistance completed. Patient admitted, IV remains in lg3 place. No redness/swelling at site. 07:04 Primary Nurse role handed off by George Sahu RN bd 14:33 Solitario Hobson, PREM is Primary Nurse. bp Administered Medications: 12/12 12:33 Drug: Ondansetron Oral Disintegrating Tablet Oral Disintegrating Tablet 4 mg PO once ld1 Route: PO; 12/13 02:45 Follow up: Response: No adverse reaction 3 12/12 15:46 Drug: NS 0.9% IV 1000 ml IV at 1 bolus Per protocol; 1000 mL bolus Route: IV; Rate: 1 iw bolus; Site: left hand; 12/13 02:44 Follow up: IV Status: Completed infusion; IV Intake: 1000ml 3 12/12 15:47 Drug: metoCLOPramide IVP 10 mg IVP once; over 1 to 2 minutes Route: IVP; Site: left iw hand; 12/13 02:44 Follow up: Response: No adverse reaction 3 12/12 15:47 Drug: diphenhydrAMINE IVP 25 mg IVP once Route: IVP; Site: left hand; iw 12/13 02:44 Follow up: Response: No adverse reaction 3 12/12 16:03 Drug: Acetaminophen PO 1000 mg PO once Route: PO; iw 12/13 02:44 Follow up: Response: No adverse reaction 3 Medication: 12/12 19:06 VIS not applicable for this client. lg3 Intake: 12/13 02:44 IV: 1000ml; Total: 1000ml. lg3 Outcome: 12/12 16:10 Decision to Hospitalize by Provider. rt 12/13 02:41 Admitted to ER Hold. Please see [facility] for further documentation. lg3 Condition: stable Instructed on the need for admit, Demonstrated understanding of instructions, 14:33 Patient left the ED. bp Signatures: Dispatcher [employer] EDMS Barbara Agrawal, Agnes, Reg Reg mr Sandi Mckinney, RN RN iw Solitario Hobson RN RN bp Calderon, Rut, RN RN lg3 Karen Melendez RN RN ld1 Javi Davidson MD MD rt George Sahu, RN RN rs5 Corrections: (The following items were deleted from the chart) 12/12 12:24 12:22 Chief complaint: Patient states: Dizziness 24/7 X 4 days, worse when standing or ld1 moving. ld1 12:26 12:22 Chief complaint: Patient states: Dizziness and headache 24/7 X 4 days, worse when ld1 standing or moving. ld1
--- NOTE | 2023-12-12 16:12 | P.HP ---
Certification for Inpatient Patient admitted to: Observation With expected LOS: <2 Midnights Patient will require the following post-hospital care: None Practitioner: I am a practitioner with admitting privileges, knowledge of patient current condition, hospital course, and medical plan of care. Services: Services provided to patient in accordance with Admission requirements found in Title 42 Section 412.3 of the Code of Federal Regulations <Kamila Nowak - Last Filed: 12/12/23 19:03> Patient History Date of Service: 12/12/23 <Ward Cotter - Last Filed: 12/12/23 18:49> Date of Service: 12/12/23 History of Present Illness: 68-year-old -[place] male with a past medical history of hypertension, presents to the emergency room with dizziness. He reports associated last lightheadedness started over the last week and has progressively gotten worse. He reports mild shortness of breath that is worse with exertion, no reported fever, no reported history of alcohol use, illicit drug use, no reported chest pain, edema, abdominal pain. Plan to admit for symptomatic anemia. Laboratory evaluation hemoglobin 7.[address] of the head unremarkable chest x- ray normal carotid ultrasound ordered <Kamila Nowak - Last Filed: 12/12/23 19:03> Allergies No Known Allergies Allergy (Unverified 12/10/16 22:07) Review of Systems per HPI <Kamila Nowak - Last Filed: 12/12/23 19:03> Physical Examination - Studies Laboratory Data (last 24 hrs) 12/12/23 12/12/23 13:15 13:15 WBC 5.40 Hgb 7.1 L Hct 23.0 L Plt Count 327 Sodium 141 Potassium 3.8 BUN 8 Creatinine 1.69 H Glucose 100 Magnesium 2.2 Total Bilirubin 0.3 AST 8 L ALT 13 L Alkaline Phosphatase 67 <Ward Cotter - Last Filed: 12/12/23 18:49> - Physical Exam General: Alert, In no apparent distress, Oriented x3 HEENT: Atraumatic, Normocephalic, PERRLA Neck: Supple, 2+ carotid pulse no bruit Respiratory: Clear to auscultation bilaterally, Normal air movement Cardiovascular: Normal pulses, Regular rate/rhythm Capillary refill: <2 Seconds Gastrointestinal: Normal bowel sounds, Soft and benign Musculoskeletal: No clubbing, No swelling Integumentary: No breakdown, No significant lesion Neurological: Normal speech, Normal strength at 5/5 x4 extr - Studies Laboratory Data (last 24 hrs) 12/12/23 12/12/23 13:15 13:15 WBC 5.40 Hgb 7.1 L Hct 23.0 L Plt Count 327 Sodium 141 Potassium 3.8 BUN 8 Creatinine 1.69 H Glucose 100 Magnesium 2.2 Total Bilirubin 0.3 AST 8 L ALT 13 L Alkaline Phosphatase 67 <Kamila Nowak - Last Filed: 12/12/23 19:03> Assessment and Plan Physician Review Additional Text: Pt seen and examined. I agree with note by the VEGETABLE II FARMWORKER. Pt is a 68 yo male with past medical history of Htn who presents dizziness/ syncope and headache. 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 Chart review shows that the dizziness started a couple of weeks ago and progressively worsened over the past 4 days. Pt denies any GI bleed, fall or loss of consciousness. On admission, Lab studies show WBC 5.4, Hgb 7.1, cr 1.69. CXR and CT head are unremarkable. At bedside, pt was sleeping. A/P: Dizziness: Likely due to hypovolemia or anemia. Will check orthostatic vitals signs, Echo and carotid ultrasound. Will give IVF and telemetry Symptomatic Anemia: hgb is 7.1. Likely iron def anemia. MCV is 73. Will give 1 unit of blood. Monitor H/H. Will follow up iron studies. JASON: cr is 1.69. Will give IVF, avoid nephrotoxins and monitor renal function Htn: Will monitor BP. Hold antihypertensive due to anemia DVT ppx: SCD Code: full <VaheWoodrowrangel Ely - Last Filed: 12/12/23 18:49> - Plan Assessment plan Symptomatic anemia Type and cross 2 units, Telemetry Hemoglobin 7.1 hematocrit 23.0, Iron, TIBC, transferrin, ferritin ordered Repeat labs in the a.m. History of hypertension controlled Resume appropriate home medications History of tobacco use Educated on tobacco cessation Diet cardiac full code DVT Lovenox Discharge Plan: Home Plan to discharge in: 24 Hours - Advance Directives Does patient have a Living Will: No Does patient have a Durable POA for Healthcare: No - Code Status/Comfort Care Code Status: Full Code Critical Care: No Time Spent Managing Pts Care (In Minutes): 55 <Kamila Nowak - Last Filed: 12/12/23 19:03>
[2023-12-12] MEDS ORDERED: NA CHLORIDE 0.9% 250 ML IV SCH (17:00)
[2023-12-12] MEDS ORDERED: NA CHLORIDE 0.9% 250 ML ONE (18:38)
[2023-12-12] MEDS ORDERED: DIPHENHYDRAMINE 50 MG/ML VIAL IV ONE (19:42)
[2023-12-12] MEDS: PANTOPRAZOLE 40MG TABLET PO SCH (19:42)
[2023-12-12] MEDS ORDERED: ONDANSETRON 4 MG/2 ML VIAL IV PRN (19:42)
[2023-12-12] MEDS: NA CHLORIDE 0.9% 1,000 ML IV SCH (19:42)
[2023-12-12] MEDS ORDERED: ACETAMINOPHEN 500 MG TAB PO PRN (19:42)
[2023-12-12] MEDS ORDERED: HYDRALAZINE HCL 20 MG/ML VIAL IV PRN (19:42)
[2023-12-12] MEDS ORDERED: PANTOPRAZOLE 40MG TABLET PO ONE (19:46)
[2023-12-12 20:10] VITALS: O2SAT 98; BMI 25.1
[2023-12-12] MEDS: FERROUS SULFATE 325 MG TAB PO SCH (21:00)
--- NOTE | 2023-12-12 21:41 | RAD REPORT ---
EXAM DESCRIPTION: US - CP - 12/12/2023 7:15 pm CLINICAL HISTORY: Dizziness COMPARISON: No comparisons TECHNIQUE: Real-time sonographic grayscale, color duplex, and spectral wave Doppler evaluation of haresh carotid systems was performed. FINDINGS: Normal high resistance waveforms are noted in both external carotid arteries. The common c arotid arteries and internal carotid arteries show normal low resistance waveforms. Small mixed echogenicity mid right ICA plaque results in moderate luminal narrowing. Similar mixed ec hogenicity mild burden of plaque along the left carotid bulb. Peak systolic velocity up to 235 cm/ se c along the poststenotic mid right ICA segment, and mildly elevated along the left ICA proximally, 13 2 cm/sec. ICA/CCA peak systolic ratios is 1.21 on the left and 3.13 on the right. Antegrade flow seen in both vertebral arteries. IMPRESSION: 70% stenosis or more at the level of the mid right ICA. 50-69% stenosis of the proximal left ICA. Vertebral arteries are patent. Evaluation of carotid artery stenosis, if any, is reported based on consensus recommendations of the Society of Radiologists in Ultrasound (Sukh et al., Radiology, 2003)
[2023-12-13 00:01] LABS: Hematocrit 24.9 % (39.6-49.0)
[2023-12-13 04:32] LABS: Absolute Lymphocytes (CBC) 1.8 K/uL (0.7-4.9); Hematocrit 24.5 % (39.6-49.0); Lymphocytes % 30.3 % (15.3-44.8); MCV 72.8 fL (80-100); MPV 7.2 fL (7.6-11.3); Platelets 313 thou/uL (152-406); RBC Red Blood Cell Count 3.36 M/uL (4.33-5.43)
[2023-12-13 04:39] LABS: Magnesium 2.1 mg/dL (1.6-2.4); Potassium 3.7 mEq/L (3.5-5.1)
[2023-12-13] MEDS: NA CHLORIDE 0.9% 1,000 ML IV SCH (05:42)
[2023-12-13] MEDS: PANTOPRAZOLE 40MG TABLET PO SCH (07:30)
[2023-12-13] MEDS ORDERED: POTASSIUM CL SA 10 MEQ TAB PO ONE ×2 (08:25→08:36)
[2023-12-13] MEDS ORDERED: PANTOPRAZOLE 40MG TABLET PO ONE (08:25)
[2023-12-13] MEDS: FERROUS SULFATE 325 MG TAB PO SCH (08:36)
[2023-12-13] MEDS ORDERED: NA CHLORIDE 0.9% 500 ML IV ONE (10:13)
[2023-12-13] MEDS ORDERED: NA CHLORIDE 0.9% 1,000 ML ONE (10:44)
--- NOTE | 2023-12-13 11:14 | P.DS ---
Admission Date: 12/12/23 Discharge Date: 12/13/23 Disposition: ROUTINE DISCHARGE Discharge Condition: FAIR Brief History of Present Illness: 68-year-old -[place] male with a past medical history of hypertension, presents to the emergency room with dizziness. He reports associated last lightheadedness started over the last week and has progressively gotten worse. He reports mild shortness of breath that is worse with exertion, no reported fever, no reported history of alcohol use, illicit drug use, no reported chest pain, edema, abdominal pain. Plan to admit for symptomatic anemia. Laboratory evaluation hemoglobin 7.[address] of the head unremarkable chest x- ray normal carotid ultrasound ordered - Physical Exam General: Alert, In no apparent distress, Oriented x3 HEENT: Atraumatic, Normocephalic, PERRLA Neck: Supple, 2+ carotid pulse no bruit Respiratory: Clear to auscultation bilaterally, Normal air movement Cardiovascular: Normal pulses, Regular rate/rhythm Capillary refill: <2 Seconds Gastrointestinal: Normal bowel sounds, Soft and benign Musculoskeletal: No clubbing, No swelling Integumentary: No breakdown, No significant lesion Neurological: Normal speech, Normal strength at 5/5 x4 extr Hospital Course: 68-year-old male patient presented with symptomatic anemia. Was noted to have hemoglobin 7.1 . Was treated with transfusion of packed red blood cells. Condition improved with transfusion Stable for discharge with follow-up appointment with primary care physician. PROBLEM: Symptomatic anemia hemoglobin 7 point 1 repeat 7.8 Hypertension Follow-up with hematology oncology For iron transfusion Continue home medicines as previously prescribed GOAL: Clear understanding of disease process INSTRUCTIONS: Physician Discharge Instructions: -DC IV and DC home -Follow-up with PCP in 1 to 2 weeks -Please call Dr. Kumar at [phone] if any questions regarding hospital stay -Please call nursing station at [phone] if any nursing or medication questions -Return to the emergency room if symptoms worsen Diet: ADA, low sodium Activity: Fall precautions DME: Date Ordered: Name of Company: [employer] Services Needed: None Date or Referral: IMMUNIZATION Influenza Vaccine Indicated: Influenza Vaccine Given: Date Given: Pneumonia Vaccine Indicated: Pneumonia Vaccine Given: Date Given: Vital Signs/Physical Exam: Temp Pulse Resp BP Pulse Ox 98.0 F 70 17 123/62 100 12/13/23 08:00 12/13/23 08:00 12/13/23 08:00 12/13/23 08:00 12/13/23 08:00 Laboratory Data at Discharge: WBC 5.80 thou/uL (4.3-10.9) 12/13/23 04:05 Hgb 7.8 g/dL (13.6-17.9) L 12/13/23 04:05 Hct 24.5 % (39.6-49.0) L 12/13/23 04:05 Plt Count 313 thou/uL (152-406) 12/13/23 04:05 Sodium 142 mEq/L (136-145) 12/13/23 04:05 Potassium 3.7 mEq/L (3.5-5.1) 12/13/23 04:05 BUN 9 mg/dL (7-18) 12/13/23 04:05 Creatinine 1.40 mg/dL (0.70-1.30) H 12/13/23 04:05 Glucose 84 mg/dL (74-106) 12/13/23 04:05 Magnesium 2.1 mg/dL (1.6-2.4) 12/13/23 04:05 Total Bilirubin 0.3 mg/dL (0.2-1.0) 12/12/23 13:15 AST 8 U/L (15-37) L 12/12/23 13:15 ALT 13 U/L (16-61) L 12/12/23 13:15 Alkaline Phosphatase 67 U/L (45-117) 12/12/23 13:15 Diet: AHA Activity: Weight bearing as tolerated Followup: NONE,NONE [Primary Care Provider] - Time spent managing pt's care (in minutes): 55
[2023-12-13 11:25] LABS: Absolute Lymphocytes (CBC) 1.4 K/uL (0.7-4.9); Hematocrit 26.2 % (39.6-49.0); Lymphocytes % 26.6 % (15.3-44.8); MCV 73.9 fL (80-100); MPV 6.9 fL (7.6-11.3); Platelets 303 thou/uL (152-406); RBC Red Blood Cell Count 3.55 M/uL (4.33-5.43)
[2023-12-13 11:58] VITALS: BP 125/62; TEMP 98.1
[2023-12-13 12:09] LABS: Ferritin 6.7 ng/mL (26-388)
[2023-12-13 12:38] LABS: Blood Morphology Comment NOTED (NOT SEEN); Ovalocytes 1+; Platelet Estimate ADEQ
[2023-12-13] MEDS ORDERED: FOLIC ACID 1 MG TABLET PO SCH (14:00)
[2023-12-13] MEDS ORDERED: CYANOCOBALAMIN 1,000 MCG TAB PO SCH (14:00)
[2023-12-13] MEDS ORDERED: FOLIC ACID 1 MG TABLET ONE (14:03)
--- NOTE | 2023-12-13 17:50 | EKG ---
Test Date: 2023-12-12 Test Time: 18:33:52 Warehouse Unloader: CYDNEY MEASUREMENT RESULTS: Intervals: Rate: 61 MA: 160 QRSD: 82 QT: 460 QTc: 463 [place]: P: 49 MA: 160 QRS: 7 T: 15 INTERPRETIVE STATEMENTS: Normal sinus rhythm Nonspecific T wave abnormality Prolonged QT Abnormal ECG Compared to ECG 11/18/2022 03:20:41 T-wave abnormality now present Prolonged QT interval now present Electronically Signed On 12-13-23 17:48:37 AIR SAMPLER by Isreal Varma
== END 2023-12-13 14:33 | disposition home or self-care (01) ==
LOC: ER 12:08 → ERHOLD 16:12
PROVIDERS: ADMIT Hospitalist; ATTEND Hospitalist
PROC: 30233N1 Transfusion of Nonautologous Red Blood Cells into Peripheral Vein, Percutaneous Approach (ICD-10-PCS; principal; 2023-12-12)
DX: D64.9 Anemia, unspecified (principal); I10 Essential (primary) hypertension; R51.9 Headache, unspecified; F17.210 Nicotine dependence, cigarettes, uncomplicated; Z71.6 Tobacco abuse counseling
CPT/HCPCS: 93005; 85025 ×3; 80048 ×2; 36415 ×2; 86900; 83735 ×2; 86850; 85044; 86901; 80076; 86920; 85018; 85014; 84484; 82728; 82746; 82607; 83540; 84466; 70450; 71045; 93880; 36430; Q0162; J2765; J1200 ×2; P9016; J7050; J7030 ×3; G0378

== ENCOUNTER 2025-09-17 10:50 | Observation (INO) | payer OTHER ==
--- NOTE | 2025-09-17 14:17 | RAD REPORT ---
EXAMINATION: ONE VIEW CHEST XR CLINICAL INDICATION: Male, 70 years old.,DYSPNEA TECHNIQUE: Frontal chest projection is submitted. Examination is limited by patient positioning and t echnique. COMPARISON: 06/08/2024 FINDINGS: The lungs are well inflated and clear. No pneumothorax or sizable effusion. The heart is normal in s ize. Mediastinal contours are unremarkable. IMPRESSION: No acute intrathoracic abnormalities.
[2025-09-17 15:24] LABS: Absolute Lymphocytes (CBC) 2.0 K/uL (0.7-4.9); Hematocrit 34.4 % (39.6-49.0); Hemoglobin 10.8 g/dL (13.6-17.9); MCH 25.5 pg (27.0-35.0); MCHC 31.3 g/dL (32.0-36.0); MCV 81.4 fL (80-100); MPV 7.8 fL (7.6-11.3); Nucleated RBC Absolute Count 0.0 (0-0); Nucleated Red Blood Cells % 0.1 % (0-0); RBC Red Blood Cell Count 4.22 M/uL (4.33-5.43); White Blood Count 7.20 thou/uL (4.3-10.9)
[2025-09-17 15:48] LABS: Anion Gap 8.0 mEq/L (5.0-15.0); BUN Blood Urea Nitrogen 15.0 mg/dL (7-18); Glucose Level 96.0 mg/dL (74-106); Magnesium 2.5 mg/dL (1.6-2.4); NT PRO-BNP 159.0 pg/mL (<125); Potassium 4.0 mEq/L (3.5-5.1); Troponin High Sensitivity 10.9 pg/mL (<58.9)
--- NOTE | 2025-09-17 17:03 | EDPHYS ---
Physician Documentation [facility] Name: Malcom Delgado Age: 70 yrs Sex: Male : 1955 Arrival Date: 09/17/2025 Time: 10:50 Bed 16 Private MD: ED Physician Willy Melendez HPI: 09/17 12:02 This 70 yrs old Black Male presents to ER via Ambulatory with complaints of Chest Pain, ms3 Shortness Of Breath. 12:02 70-year-old male with past medical history of hypertension presents to the emergency ms3 department for not feeling right over the last 2 to 3 weeks. Patient was sent to the emergency department by his primary care physician, Dr. Vasquez. Patient states his discomfort is a 7/10. Patient endorses shortness of breath and nausea. Patient denies any alleviating or inciting factors.. Historical: - Allergies: 11:24 Coreg; jl7 - PMHx: 11:24 Hypertension; jl7 - PSHx: 11:24 multiple back surgeries; jl7 - Immunization history:: Adult Immunizations unknown. - Infectious Disease History:: Denies. - Social history:: Smoking status: Patient reports the use of cigarette tobacco products, denies chronic smoking, but will smoke occasionally. ROS: 12:02 Constitutional: Negative for fever, and chills. Cardiovascular: Negative for chest ms3 pain, and palpitations. 12:02 MS/Extremity: Negative for injury and deformity, Skin: Negative for injury, rash, and discoloration, 12:02 Respiratory: Positive for shortness of breath, 12:02 Abdomen/GI: Positive for nausea, diarrhea, Exam: 11:52 ECG was reviewed by the Attending Physician. ms3 12:02 Constitutional: This is a well developed, well nourished patient who is awake, alert, ms3 and in no acute distress. Cardiovascular: Regular rate and rhythm with a normal S1 and S2. No gallops, murmurs, or rubs. Normal PMI, no JVD. No pulse deficits. Respiratory: Lungs have equal breath sounds bilaterally, clear to auscultation and percussion. No rales, rhonchi or wheezes noted. No increased work of breathing, no retractions or nasal flaring. Abdomen/GI: Soft, non-tender, with normal bowel sounds. No distension or tympany. No guarding or rebound. No evidence of tenderness throughout. Skin: Warm, dry with normal turgor. Normal color with no rashes, no lesions, and no evidence of cellulitis. MS/ Extremity: Pulses equal, no cyanosis. Neurovascular intact. Full, normal range of motion. Vital Signs: 11:23 BP 138 / 68; Pulse 91; Resp 15; Temp 97; Pulse Ox 100% ; Weight 66.22 kg; Height 5 ft. jl7 9 in. ; Pain 5/10; 15:00 BP 144 / 66; Pulse 78; Resp 16; Pulse Ox 97% ; me1 16:00 BP 142 / 67; Pulse 66; Resp 16; Pulse Ox 96% ; me1 17:00 BP 142 / 60; Pulse 66; Resp 15; Pulse Ox 97% ; me1 18:00 BP 156 / 67; Pulse 82; Resp 15; Pulse Ox 98% ; me1 19:00 BP 148 / 63; Pulse 78; Resp 12; Pulse Ox 97% ; me1 20:00 BP 130 / 67; Pulse 89; Resp 18; Pulse Ox 100% ; me1 21:00 BP 117 / 58; Pulse 80; Resp 17; Pulse Ox 98% ; me1 11:23 Body Mass Index 21.56 (66.22 kg, 175.26 cm) jl7 11:23 Pain Scale: Adult jl7 MDM: 11:30 Medical Screening Exam initiated ms3 12:02 Differential diagnosis: abnormal EKG, acute myocardial infarction, congestive heart ms3 failure. 17:08 HEART Score: History: Moderately Suspicious (1), ECG: Normal (0), Age: > or = 65 years ms3 (2), Risk Factors: 1 or 2 risk factors (1), Troponin: < or = 1 x Normal Limit (0), Total Score = 4. The patient was given aspirin in the Emergency Department. Data reviewed: vital signs, nurses notes, lab test result(s), EKG, radiologic studies, and as a result, I will admit patient. Consideration of Admission/Observation Patient was admitted/placed on observation. Management of patient was discussed with the following: Hospitalist: . I considered the following discharge prescriptions or medication management in the emergency department Medications were administered in the Emergency Department. See MAR. Independent interpretation of the following test(s) in the Emergency Department EKG: See my EKG interpretation above X-Ray: My interpretation is Chest x-ray image reviewed by me does not reveal pneumonia. Counseling: I had a detailed discussion with the patient and/or guardian regarding the historical points, exam findings, and any diagnostic results supporting the discharge/admit diagnosis, lab results, radiology results, the need for further work-up and treatment in the hospital. ED course: Discussed results with patient. Patient states he is still having dull chest pain. Heart score is 4. Will place patient observation. 09/17 11:20 Order name: Basic Metabolic Panel; Complete Time: 16:54 ms3 09/17 11:20 Order name: CBC with Diff; Complete Time: 17:27 ms3 09/17 11:20 Order name: Magnesium; Complete Time: 16:54 ms3 09/17 11:20 Order name: NT PRO-BNP; Complete Time: 16:54 ms3 09/17 11:20 Order name: Troponin HS; Complete Time: 16:54 ms3 09/17 15:29 Order name: CBC Smear Scan; Complete Time: 17:27 EDMS 09/17 11:20 Order name: XRAY Chest (1 view); Complete Time: 14:20 ms3 09/17 17:14 Order name: CONS Physician Consult EDMS 09/17 11:20 Order name: Cardiac monitoring; Complete Time: 14:57 ms3 09/17 11:20 Order name: EKG - Nurse/Tech; Complete Time: 11:26 ms3 09/17 11:20 Order name: IV Saline Lock; Complete Time: 17:35 ms3 09/17 11:20 Order name: Labs collected and sent; Complete Time: 15:33 ms3 09/17 11:20 Order name: O2 Per Protocol; Complete Time: 15:36 ms3 09/17 11:20 Order name: O2 Sat Monitoring; Complete Time: 15:36 ms3 EC:52 Rate is 94 beats/min. Rhythm is regular. QRS [place] is Normal. [place] interval is normal. QRS ms3 interval is normal. Clinical impression: NSR w/ Non-specific ST/T Changes. Interpreted by me. Reviewed by me. Administered Medications: 18:17 Drug: Aspirin PO Chewable Tablet 324 mg PO once; 81 mg tablets x 4 Route: PO; me1 18:23 Follow up: Response: No adverse reaction me1 Disposition Summary: 09/17/25 17:02 Hospitalization Ordered Notes: Hospitalization Status: Observation ms3 Provider: Charlie Kumar ms3 Location: Telemetry/MedSurg (observation) ms3 Condition: Stable ms3 Problem: new ms3 Symptoms: are unchanged ms3 Bed/Room Type: Standard ms3 Room Assignment: 403(09/17/25 20:59) rv1 Diagnosis - Chest pain, unspecified ms3 - Essential (primary) hypertension ms3 - Chronic kidney disease, unspecified ms3 Forms: - Medication Reconciliation Form ms3 - SBAR form ms3 - Leadership Thank You Letter ms3 Signatures: Dispatcher [employer] EDMS Grace Shelby, RN RN jl7 Willy Melendez DO DO ms3 Katie Vasquez rv1 Zehra Steven, PREM RN me1 Corrections: (The following items were deleted from the chart) 11:20 11:20 BASIC METABOLIC PANEL+C.LAB.BRZ ordered. EDMS EDMS 11:20 11:20 CBC+H.LAB.BRZ ordered. EDMS EDMS 11:20 11:20 MAGNESIUM+C.LAB.BRZ ordered. EDMS EDMS 11:20 11:20 PROBNP+C.LAB.BRZ ordered. EDMS EDMS 11:20 11:20 Troponin High Sensitivity+C.LAB.BRZ ordered. EDMS EDMS 11:20 11:20 Chest Single View+RAD.RAD.BRZ ordered. EDMS EDMS 20:59 17:02 ms3 rv1
--- NOTE | 2025-09-17 17:03 | ER ---
Nurse's Notes [facility] Name: Malcom Delgado Age: 70 yrs Sex: Male : 1955 Arrival Date: 09/17/2025 Time: 10:50 Bed 16 Private MD: Diagnosis: Chest pain, unspecified;Essential (primary) hypertension;Chronic kidney disease, unspecified Presentation: 09/17 11:23 Chief complaint: Patient states: Chest pressure x 1 week, SOB. Coronavirus screen: At [facility] this time, the client does not indicate any symptoms associated with coronavirus-19. Ebola Screen: No symptoms or risks identified at this time. Initial Sepsis Screen: Does the patient meet any 2 criteria? No. Patient's initial sepsis screen is negative. Does the patient have a suspected source of infection? No. Patient's initial sepsis screen is negative. Risk Assessment: Do you want to hurt yourself or someone else? Patient reports no desire to harm self or others. Onset of symptoms is unknown. 11:23 Method Of Arrival: Ambulatory [facility] 11:23 Acuity: AKUA 2 jl7 Triage Assessment: 11:24 General: Appears in no apparent distress. uncomfortable, Behavior is calm, cooperative, jl7 appropriate for age. Pain: Complains of pain in chest Pain currently is 5 out of 10 on a pain scale. Cardiovascular: Patient's skin is warm and dry. Rhythm is sinus rhythm. Historical: - Allergies: 11:24 Coreg; jl7 - PMHx: 11:24 Hypertension; jl7 - PSHx: 11:24 multiple back surgeries; jl7 - Immunization history:: Adult Immunizations unknown. - Infectious Disease History:: Denies. - Social history:: Smoking status: Patient reports the use of cigarette tobacco products, denies chronic smoking, but will smoke occasionally. Screenin:50 [facility] ED Fall Risk Assessment (Adult) History of falling in the last 3 months, me1 including since admission No falls in past 3 months (0 pts) Confusion or Disorientation No (0 pts) Intoxicated or Sedated No (0 pts) Impaired Gait No (0 pts) Mobility Assist Device Used No (0 pt) Altered Elimination No (0 pt) Score/Fall Risk Level 0 - 2 = Low Risk Maintained a safe environment, Provided non-skid footwear, Hourly rounding (assess needs \T\ fall precautionary measures) done. Abuse screen: Denies threats or abuse. Nutritional screening: No deficits noted. Tuberculosis screening: No symptoms or risk factors identified. Assessment: 14:50 General: Appears uncomfortable, well groomed, well developed, well nourished, Behavior me1 is calm, cooperative, appropriate for age, Reports Chest pressure x 1 week, SOB. Pain: Complains of pain in chest Pain does not radiate. Pain currently is 5 out of 10 on a pain scale. Quality of pain is described as pressure, Pain began gradually, about a week ago Is continuous. Neuro: Level of Consciousness is awake, alert, obeys commands, Oriented to person, place, time, situation, Appropriate for age. Cardiovascular: Patient's skin is warm and dry. Cardiovascular: Reports chest pain, shortness of breath. Respiratory: Airway is patent Respiratory effort is even, unlabored, Respiratory pattern is regular, symmetrical. GI: No signs and/or symptoms were reported involving the gastrointestinal system. : No signs and/or symptoms were reported regarding the genitourinary system. EENT: No signs and/or symptoms were reported regarding the EENT system. Derm: Skin is intact, is healthy with good turgor, Skin is normal. Musculoskeletal: Circulation, motion, and sensation intact. Range of motion: intact in all extremities. Vital Signs: 11:23 BP 138 / 68; Pulse 91; Resp 15; Temp 97; Pulse Ox 100% ; Weight 66.22 kg; Height 5 ft. jl7 9 in. ; Pain 5/10; 15:00 BP 144 / 66; Pulse 78; Resp 16; Pulse Ox 97% ; me1 16:00 BP 142 / 67; Pulse 66; Resp 16; Pulse Ox 96% ; me1 17:00 BP 142 / 60; Pulse 66; Resp 15; Pulse Ox 97% ; me1 18:00 BP 156 / 67; Pulse 82; Resp 15; Pulse Ox 98% ; me1 19:00 BP 148 / 63; Pulse 78; Resp 12; Pulse Ox 97% ; me1 20:00 BP 130 / 67; Pulse 89; Resp 18; Pulse Ox 100% ; me1 21:00 BP 117 / 58; Pulse 80; Resp 17; Pulse Ox 98% ; me1 11:23 Body Mass Index 21.56 (66.22 kg, 175.26 cm) jl7 11:23 Pain Scale: Adult jl7 ED Course: 11:11 Patient arrived in ED. cj3 11:19 Willy Melendez DO is Attending Physician. ms3 11:24 Triage completed. jl7 11:24 Arm band placed on right wrist. jl7 12:00 Radiology exam delayed due to no response when name called. md2 12:59 Radiology exam delayed due to in triage. md2 13:43 XRAY Chest (1 view) In Process Unspecified. EDMS 14:38 Zehra Steven, RN is Primary Nurse. me1 14:50 Patient has correct armband on for positive identification. Bed in low position. Call me1 light in reach. Side rails up X2. Provided Education on: POC. Verbalized understanding.. Client placed on continuous cardiac and pulse oximetry monitoring. NIBP monitoring applied. cardiac monitor on. Pulse ox on. NIBP on. 14:50 No provider procedures requiring assistance completed. Patient maintains SpO2 me1 saturation greater than 95% on room air. 15:59 Accessed peripheral vein via ultrasound, utilizing dynamic ultrasound technique using hb per hospital protocol. Clean \T\ dry. Dressing intact. Good blood return. Flushes easily. 20g RAC. 17:00 Charlie Kumar MD is Hospitalizing Provider. ms3 21:37 Patient admitted, IV remains in place. me1 Administered Medications: 18:17 Drug: Aspirin PO Chewable Tablet 324 mg PO once; 81 mg tablets x 4 Route: PO; me1 18:23 Follow up: Response: No adverse reaction me1 Medication: 14:50 VIS not applicable for this client. me1 Outcome: 17:02 Decision to Hospitalize by Provider. ms3 21:37 Admitted to Tele accompanied by tech, via wheelchair, room 403, with chart, Report me1 called to tubed up, receipt confirmed with Tete 21:37 Condition: stable 21:37 Instructed on the need for admit, 22:08 Patient left the ED. nh2 Signatures: Dispatcher [employer] EDMS Khadijah Castro RN RN Grace Shelby RN RN jl7 Willy Melendez DO DO ms3 Sariah Hein md2 Zehra Steven, PREM RN me1 Alfred Wilkins Jr RN RN nh2 Barbara Bauer cj3 Corrections: (The following items were deleted from the chart) 11:23 Acuity: AKUA 3 jl7 jl7 17: 11:23 Chief complaint: Patient states: Chest pressure x 1 week, SOB jl7 me1
[2025-09-17 17:12] LABS: Blood Morphology Comment NOT SEEN (NOT SEEN)
[2025-09-17] MEDS ORDERED: ACETAMINOPHEN 500 MG TAB PO PRN (17:12)
[2025-09-17] MEDS ORDERED: MORPHINE 4 MG/ML SYR IV PRN (17:12)
[2025-09-17] MEDS ORDERED: ONDANSETRON 4 MG/2 ML VIAL IV PRN (17:12)
[2025-09-17 17:15] LABS: White Blood Cell Scan OK (OK)
[2025-09-17] MEDS ORDERED: ASPIRIN 81 MG CHEWABLE TABLET ONE (18:11)
[2025-09-17 23:18] VITALS: BMI 21.7
[2025-09-18] MEDS: HEPARIN 5000 UNIT/ML 1 ML VIAL SQ SCH (00:56)
--- NOTE | 2025-09-18 06:15 | P.HP ---
Certification for Inpatient Patient admitted to: Observation With expected LOS: <2 Midnights Patient will require the following post-hospital care: None Practitioner: I am a practitioner with admitting privileges, knowledge of patient current condition, hospital course, and medical plan of care. Services: Services provided to patient in accordance with Admission requirements found in Title 42 Section 412.3 of the Code of Federal Regulations Patient History Date of Service: 09/17/25 Reason for admission: Chest pain History of Present Illness: Malcom Delgado is a 70-year-old Black male with a history of hypertension who developed chest pressure approximately 1 week ago. The chest pressure has been associated with shortness of breath, prompting referral by his primary care physician Dr. Vasquez for further evaluation. Patient rates his current pain as 5 out of 10. He has been experiencing associated shortness of breath and reports nausea and diarrhea. He denies fever, chills, and palpitations. The symptoms prompted him to seek medical attention through his primary care provider. ED course: Laboratory Studies: Complete blood count shows hemoglobin 10.8 g/dL and hematocrit 34.4%, consistent with chronic normocytic hypochromic anemia and previous trends. Platelet count 241,000/?L. Comprehensive metabolic panel reveals creatinine 1.52 mg/dL, which is improved from previous values, with eGFR 49 mL/min/1.73m indicating chronic kidney disease. Electrolytes are unremarkable. Magnesium level 2.5 mg/dL. Cardiac biomarkers include BNP 159 pg/mL and troponin 10.9 ng/L. Electrocardiogram: Normal sinus rhythm at 94 beats per minute with non-specific ST-T wave changes. No signs of acute ischemia. Imaging Studies: Chest X-ray shows no acute intrathoracic abnormalities. Allergies No Known Allergies Allergy (Verified 09/17/25 23:06) Home Medications: Ferrous Sulfate [Ferrous Sulfate Elixir] 5 ml PO BID #300 ml 12/13/23 Amitriptyline [Elavil] 25 mg PO BEDTIME 09/17/25 Amlodipine Bes/Olmesartan Med [Amlodipine-Olmesartan 10-20 mg] 1 tab PO BEDTIME 09/17/25 Folic Acid 1 mg PO BEDTIME 09/17/25 Hydralazine HCl 1 tab PO BEDTIME 09/17/25 Ondansetron [Ondansetron Odt] 8 mg PO DAILY PRN 09/17/25 Pantoprazole [Protonix Tab*] 40 mg PO BEDTIME 09/17/25 Rosuvastatin [Crestor*] 10 mg PO BEDTIME 09/17/25 Tamsulosin [Flomax*] 1 cap PO BEDTIME 09/17/25 - Past Medical/Surgical History Has patient received pneumonia vaccine in the past: Yes Diabetic: No -: 1989- Back surgery= ruptured disk -: 2022-neck fusion - Family History Mother -: Cancer Father -: Heart disease Notes: Heart Attack - Social History Smoking Status: Former smoker Alcohol use: No CD- Drugs: No Caffeine use: Yes Place of Residence: Home Review of Systems 10-point ROS is otherwise unremarkable Physical Examination - Vital Signs Temperature: 98.1 F Blood Pressure: 129/62 Pulse: 83 Respirations: 17 Pulse Ox (%): 97 - Physical Exam Other Physical/Emotional Findings: GEN: No apparent distress, nontoxic appearance. HEENT: Nasal septum midline. RESP: No accessory muscle use. CV: Regular rate. MSK: No cyanosis or clubbing. SKIN: No visible rash. PSYCH: Alert, not appearing anxious or agitated - Studies Laboratory Data (last 24 hrs) 09/17/25 09/17/25 15:18 15:18 WBC 7.20 Hgb 10.8 L Hct 34.4 L Plt Count 241 Sodium 141 Potassium 4.0 BUN 15 Creatinine 1.52 H Glucose 96 Magnesium 2.5 H Assessment and Plan - Plan 70-year-old Black male with history of hypertension, chronic kidney disease, and chronic anemia presenting with 1 week of chest pressure and shortness of breath. Current troponin is negative, EKG shows non-specific changes without acute ischemic changes, and chest X-ray is unremarkable. Clinical presentation is concerning for acute coronary syndrome. Primary diagnosis is chest pain with rule out acute coronary syndrome, specifically considering unstable angina versus non-ST elevation myocardial infarction (NSTEMI). Chest Pain ACS rule out NSTEMI vs Unstable Angina Diarrhea 1. Admit patient for chest pain evaluation and ACS rule out. 2. Serial troponin levels and EKGs to monitor for evolving cardiac injury. 3. Stool studies to evaluate diarrhea. 4. Continue monitoring vital signs and cardiac rhythm. 5. Cardiology consultation Discharge Plan: Home Plan to discharge in: 24 Hours - Advance Directives Does patient have a Living Will: No Does patient have a Durable POA for Healthcare: No - Code Status/Comfort Care Code Status Assessed: Yes (Full code) Critical Care: No
[2025-09-18 07:04] LABS: Absolute Lymphocytes (CBC) 1.5 K/uL (0.7-4.9); Hematocrit 30.6 % (39.6-49.0); Hemoglobin 9.5 g/dL (13.6-17.9); MCH 25.1 pg (27.0-35.0); MCHC 31.0 g/dL (32.0-36.0); MCV 80.8 fL (80-100); MPV 7.6 fL (7.6-11.3); Nucleated RBC Absolute Count 0.0 (0-0); Nucleated Red Blood Cells % 0.1 % (0-0); RBC Red Blood Cell Count 3.79 M/uL (4.33-5.43); White Blood Count 5.40 thou/uL (4.3-10.9)
[2025-09-18 07:23] LABS: PT Prothrombin Time 13.8 SECONDS (10-13.0); Protime INR 1.23
[2025-09-18 07:24] LABS: Anion Gap 11.1 mEq/L (5.0-15.0); BUN Blood Urea Nitrogen 15.0 mg/dL (7-18); Glucose Level 74.0 mg/dL (74-106); HDL Cholesterol 46.0 mg/dL (40-60); LDL Cholesterol, Calculated 54.0 mg/dL (<130); LDL Cholesterol,Calc NonReport 54.0; Magnesium 2.2 mg/dL (1.6-2.4); Potassium 4.1 mEq/L (3.5-5.1); Troponin High Sensitivity 13.8 pg/mL (<58.9)
[2025-09-18] MEDS: ASPIRIN EC 81 MG TAB PO SCH (08:39)
[2025-09-18 09:22] LABS: White Blood Cell Scan OK (OK)
[2025-09-18 09:23] LABS: Blood Morphology Comment NOT SEEN (NOT SEEN)
--- NOTE | 2025-09-18 10:18 | P.CNS ---
Date of Consult: 09/18/25 Chief Complaint: Chest pain History of Present Illness: Patient with PMH of HTN, Carotid artery disease, presented with chest pain, dizziness that has been going on for the last week, chest pain is pressure in nature, mid chest, no radiation, last for few minutes associated with dizziness, denies breathing problems. Allergies No Known Allergies Allergy (Verified 09/17/25 23:06) Home medications list reviewed: Yes Home Medications: Ferrous Sulfate [Ferrous Sulfate Elixir] 5 ml PO BID #300 ml 12/13/23 Amitriptyline [Elavil] 25 mg PO BEDTIME 09/17/25 Amlodipine Bes/Olmesartan Med [Amlodipine-Olmesartan 10-20 mg] 1 tab PO BEDTIME 09/17/25 Folic Acid 1 mg PO BEDTIME 09/17/25 Hydralazine HCl 1 tab PO BEDTIME 09/17/25 Ondansetron [Ondansetron Odt] 8 mg PO DAILY PRN 09/17/25 Pantoprazole [Protonix Tab*] 40 mg PO BEDTIME 09/17/25 Rosuvastatin [Crestor*] 10 mg PO BEDTIME 09/17/25 Tamsulosin [Flomax*] 1 cap PO BEDTIME 09/17/25 - Past Medical/Surgical History Diabetic: No -: 1989- Back surgery= ruptured disk -: 2022-neck fusion - Family History Mother Medical History: Cancer Father Medical History: Heart disease Notes: Heart Attack - Social History Smoking Status: Current some day smoker Alcohol use: No CD- Drugs: No Caffeine use: Yes Place of Residence: Home Review of Systems 10-point ROS is otherwise unremarkable Physical Examination Temp Pulse Resp BP Pulse Ox 98.5 F 83 18 133/64 96 09/18/25 08:00 09/18/25 08:00 09/18/25 08:00 09/18/25 08:00 09/18/25 08:00 General: Alert, In no apparent distress HEENT: Atraumatic, PERRLA, Mucous membr. moist/pink, EOMI, Sclerae nonicteric Neck: Supple, 2+ carotid pulse no bruit, No LAD, Without JVD or thyroid abnormality Respiratory: Clear to auscultation bilaterally, Normal air movement Cardiovascular: Regular rate/rhythm, Normal S1 S2 Gastrointestinal: Normal bowel sounds, No tenderness Musculoskeletal: No tenderness Integumentary: No rashes Neurological: Normal gait, Normal speech, Normal tone, Normal affect Lymphatics: No axilla or inguinal lymphadenopathy Laboratory Data (last 24 hrs) 09/17/25 09/17/25 15:18 15:18 WBC 7.20 Hgb 10.8 L Hct 34.4 L Plt Count 241 Sodium 141 Potassium 4.0 BUN 15 Creatinine 1.52 H Glucose 96 Magnesium 2.5 H - Problems (1) Chest pain Current Visit: Yes Status: Acute Plan: concern for angina, Troponin negative x3 patient is scheduled for stress test and echo ASA 81 mg daily Lipitor 40 mg daily (2) Carotid artery disease Current Visit: Yes Status: Acute Plan: patient had a CTA last year that shown severe left ICA disease ASA 81 mg daily Lipitor 40 mg daily follow up with cardiology as outpatient for referral for endovascular repair (3) Essential hypertension Current Visit: No Status: Acute Plan: continue Amlodipine and Vlasartan, continue to monitor
--- NOTE | 2025-09-18 11:33 | P.PN ---
Subjective Date of Service: 09/18/25 Chief Complaint: Chest pain 70 year old male continues in the hospital for treatment of chest pain. Patient reported improving shortness of breath and dizziness and says that his symptoms still worsen with walking/exacerbation. Troponin remains unremarkable (last value taken at 6:53, 13.8). He is scheduled for an echo later today. Physical Examination - Vital Signs Temperature: 98.5 F Blood Pressure: 133/64 Pulse: 83 Respirations: 18 Pulse Ox (%): 96 - Physical Exam Other Physical/Emotional Findings: GEN: No apparent distress, nontoxic appearance. HEENT: Nasal septum midline. RESP: No accessory muscle use. CV: Regular rate. MSK: No cyanosis or clubbing. SKIN: No visible rash. PSYCH: Alert, not appearing anxious or agitated - Studies Laboratory Data (last 24 hrs) 09/17/25 09/17/25 15:18 15:18 WBC 7.20 Hgb 10.8 L Hct 34.4 L Plt Count 241 Sodium 141 Potassium 4.0 BUN 15 Creatinine 1.52 H Glucose 96 Magnesium 2.5 H Assessment & Plan - Advance Directives Does patient have a Living Will: No Does patient have a Durable POA for Healthcare: No
[2025-09-18] MEDS ORDERED: REGADENOSON 0.4 MG/5 ML SYR IV ONE (13:40)
[2025-09-18 16:27] VITALS: BP 146/61; TEMP 98.3
[2025-09-18 16:36] VITALS: O2SAT 100
--- NOTE | 2025-09-18 17:53 | RAD REPORT ---
EXAM :Rest Stress Cardiac Imaging CLINICAL HISTORY: Chest pain TECHNIQUE: Rest images: 10.7 mCi technetium 99m sestamibi administered intravenously. Stress images: 27.6 mCi of technetium 99m sestamibi administered intravenously. Cardiac SPECT images obtained COMPARISON: None. FINDINGS: Stress images demonstrate small area of diminished radiotracer uptake involving the inferior left sonia tricular myocardium Rest images demonstrate moderate area of diminished radiotracer uptake involving the inferior left ve ntricular myocardium. Most likely this is attenuation from the diaphragm rather than pathology. Remainder of the left ventricular myocardium demonstrates normal radiotracer activity. Left ventricular ejection fraction equals 70% IMPRESSION: No evidence of a myocardial perfusion defect
[2025-09-18] MEDS ORDERED: ATORVASTATIN 40 MG TAB PO SCH (21:00)
[2025-09-18] MEDS ORDERED: HYDRALAZINE HCL 25 MG TABLET PO SCH (21:00)
[2025-09-18] MEDS ORDERED: AMLODIPINE 10 MG TAB PO SCH (21:00)
[2025-09-18] MEDS ORDERED: ROSUVASTATIN 10 MG TAB PO SCH (21:00)
[2025-09-18] MEDS ORDERED: AMITRIPTYLINE 25 MG TAB PO SCH (21:00)
[2025-09-18] MEDS ORDERED: VALSARTAN 80 MG TAB PO SCH (21:00)
[2025-09-18] MEDS ORDERED: FOLIC ACID 1 MG TABLET PO SCH (21:00)
[2025-09-18] MEDS ORDERED: PANTOPRAZOLE 40MG TABLET PO SCH (21:00)
[2025-09-18] MEDS ORDERED: TAMSULOSIN 0.4 MG SR CAP PO SCH (21:00)
--- NOTE | 2025-09-19 12:09 | TREADPHA ---
DX: CHEST PAIN Date of Study: 09/18/2025 Ht: 5' 9 " Wt: 147 lb 0 oz Consulting Physician: DARIAN ORTA MD MEDICATIONS: TYLENOL, ASPIRIN, HEPARIN, CRESTOR, FLOMAX HISTORY: 70 YEAR OLD MALE WITH COMPLIANTS OF CHEST PAIN PHYSICIAL EXAMINATION: RESTING B.P.: 156/58 RESTING H.R.: 78 RESTING EKG: SINUS RHYTHM PROTOCOL: PHARMACOLOGICAL EXERCISE TIME: 3:30 B.P. AT PEAK STRESS: 149/47 IMPRESSION: LEXISCAN INJECTED PER PROTOCOL. CARDIOLITE INJECTED - SEE NUCLEAR MEDICINE REPORT. PREMATURE VENTRICULAR COMPLEXES UPON INJECTION OF LEXISCAN. NO SUPRAVENTRICULAR TACHYCARDIA. NO VENTRICULAR TACHYCARDIA. NO ARRHYTHMIAS. NO CHEST PAIN.
== END 2025-09-18 18:47 | disposition home or self-care (01) ==
LOC: ER 10:50 → ERHOLD 17:10 → 4TH 21:38
PROVIDERS: ADMIT Hospitalist; ATTEND Hospitalist
DX: R07.9 Chest pain, unspecified (principal); I25.10 Atherosclerotic heart disease of native coronary artery without angina pectoris; I10 Essential (primary) hypertension; R06.02 Shortness of breath; N18.9 Chronic kidney disease, unspecified; D64.9 Anemia, unspecified; R42 Dizziness and giddiness; F17.210 Nicotine dependence, cigarettes, uncomplicated
CPT/HCPCS: 93005; 93017; 93306; 85025 ×2; 80048 ×2; 36415 ×2; 83735 ×2; 84100; 85610; 80061; 85379; 84484 ×3; 83880; 71045; 78452; 99285; J1644 ×2; J2785; A9500; G0378